=== PATIENT | male | born 1950 | race Caucasian/White ===

== ENCOUNTER → 2016-10-23 | Outpatient (CLI) | payer MEDICARE, BC ==
[~2016-10-23] MED LIST: AMIODARONE HCL100 MG PO; COLACE100 MG PO; K-TAB ER20 MEQ PO; LIPITOR40 MG PO; MAG-OX-400(241400 MG PO; NORCO 5-325 MG1 TAB PO; PRINIVIL (ZESTR20 MG PO; PROTONIX40 MG PO; SODIUM BICARBO650 MG PO; TOPROL XL200 MG PO; TOPROL XL25 MG PO; XARELTO15 MG PO
== END | disposition disaster alternative care site (69) ==
LOC: LGSMG 11:30
PROVIDERS: Physician Assistant Medical
DX: Z00.00 Encounter for general adult medical examination without abnormal findings (principal); Z01.818 Encounter for other preprocedural examination

== ENCOUNTER 2016-10-29 13:40 | Inpatient (IN) | payer MEDICARE, BC ==
[~2016-10-29] VITALS: Ht 179.1 cm; Wt 79.0 kg
--- NOTE | ~2016-10-29 | CON ---
PATIENT'S NAME: MARGUERITE YEPEZ [facility] AGE: 66 Y [address] ROOM: [address] [address] LOCATION: [facility] ADMIT DATE: 10/30/2016 Consultation DISCHARGE DATE: FAMILY PHYSICIAN: Luis Carlos Shipley MD ATTENDING PHYSICIAN: MAR BOLIVAR DATE OF CONSULTATION: 11/12/2016 REFERRING PHYSICIAN: Zheng Meneses MD TIME: 1:05 p.m. REASON FOR CONSULT: Need for anticoagulation post stroke. HISTORY OF PRESENT ILLNESS: Marguerite was admitted on 10/30/2016 for robotic-assisted laparoscopic prostatocystectomy with pelvic lymph node dissection and creation of an ileal conduit for invasive cancer. The hospitalists were consulted on 10/31/2016 for some irregular heart rate and the patient was found to be in atrial fibrillation, so Cardiology was consulted. Metoprolol was initiated and his rates have been under good control. He was started on heparin subcutaneous 5000 units b.i.d. on 11/01/2016. On 11/06/2016, the patient underwent a septic workup for shaking and chills. It was thought, he may have a hospital- acquired pneumonia. He was started on vancomycin and sepsis orders were initiated. On 11/10/2016, he complained of left lower extremity pain and venous Doppler revealed occlusive acute DVT. He was started on the heparin drip and the subcutaneous heparin was discontinued. Factor 5 Leiden, prothrombin mutation, and lupus anticoagulant labs were ordered. Neurology is being consulted to evaluate the appropriateness of anticoagulation due to a stroke in 2012. 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 He felt his legs giving out under him. He was brought to the emergency room and was noted to be in a rapid atrial fibrillation. After that, during that hospital stay, he was found to have word-finding difficulties, so a CT and MRI were done. The CT did show acute ischemia involving the superior left kristal-cerebellum and the superior cerebellar arterial distribution. Of note, there was a small remote lacune involving the left basal ganglia. The stroke was thought to be from atrial fibrillation, so an MRA was also completed. The impression was attenuated left superior cerebellar artery along its proximal and mid portions with non visualization of the vessel distally. It was thought to recommence slow flow versus occlusion. The patient's stroke symptoms were word finding and he required no rehabilitation post discharge. REVIEW OF SYSTEMS: PATIENT'S NAME: MARGUERITE YEPEZ [facility] AGE: 66 Y [address] ROOM: [address] [address] LOCATION: [facility] [place] ADMIT DATE: 10/30/2016 Consultation DISCHARGE DATE: FAMILY PHYSICIAN: Luis Carlos Shipley MD ATTENDING PHYSICIAN: MAR BOLIVAR A 10-point review of systems was completed and was negative today. The patient denies any pain. Denies any word finding issues, headache, difficulty with vision, and denies any focal weakness to any of his extremities. MEDICATIONS: His medications are on the chart and were reviewed by me. Of note, the patient is on heparin drip. SOCIAL HISTORY: The patient lives in [place]. He is a former smoker. He does not drink alcohol. PAST MEDICAL HISTORY: Includes. 1. Paroxysmal atrial fibrillation. 2. Ischemic stroke in 2012. 3. Hypertension. 4. Obstructive sleep apnea. 5. Obesity. 6. Hyperlipidemia. 7. History of tobaccoism. 8. Hematuria history. 9. The muscle invasive urothelial carcinoma. PAST SURGICAL HISTORY: 1. Ileal conduit surgery of this admission. 2. A right inguinal hernia repair. 3. Tonsillectomy. 4. Cystoscopy. FAMILY HISTORY: His father did have polio. His mother was healthy with no health issues. PHYSICAL EXAMINATION: VITAL SIGNS: Temperature is 97.6, pulse is 72, and irregular, respirations 16, and blood pressure 123/62. GENERAL: The patient is sitting in his bed with the head of bed up. He is alert and oriented x4. He is in no acute distress. HEENT: Normocephalic and atraumatic. His pupils are equal, round, and reactive to light. Extraocular muscles are intact. NECK: Supple with no nuchal rigidity. No carotid bruits are auscultated. HEART: Reveals an irregular rhythm. LUNGS: Clear to auscultation bilaterally. NEUROLOGIC: Alert and oriented x4. Conversive and follows commands. Cranial nerves 2 through 12 are intact. NIH Stroke Scale reveals a score of zero. I PATIENT'S NAME: MARGUERITE YEPEZ [facility] AGE: 66 Y [address] ROOM: [id number] [place], [place] [address] LOCATION: [facility] [place] ADMIT DATE: 10/30/2016 Consultation DISCHARGE DATE: FAMILY PHYSICIAN: Luis Carlos Shipley MD ATTENDING PHYSICIAN: MAR BOLIVAR did not assess the patient's gait. DIAGNOSTICS: The patient did have a CT scan done on the [address] shows the chronic left superior cerebellar infarct. It shows mild atrophy. There is no hemorrhage, mass, or mass effect, hydrocephalus or evidence of acute infarct. ASSESSMENT AND PLAN: This is a 66-year-old male with atrial fibrillation that probably caused the stroke in 2012 and now has returned status post surgery. 1. History of ischemic infarct. The patient is on heparin drip and also a statin medication. At the time of the stroke, it was not appropriate to utilize anticoagulation due to the possibility of hemorrhagic conversion. However, the stroke happened in 2012 and the patient should be safe for anticoagulant treatment in light of his atrial fibrillation and now the new onset of the left DVT. 2. Deep vein thrombosis. The patient is on the heparin drip. 3. Atrial fibrillation, rate is controlled. Patient has a history of paroxysmal atrial fibrillation and could have very likely caused a stroke in 2012. 4. Dyslipidemia, continue statin. 5. Hypertension, it is being managed by Cardiology. We would like to thank you for the opportunity to take care in this patient's care. PRASHANT VASQUEZ APRN FOR PATSY BURRIS MD PP/modl /[id number] d: 11/12/16 2109 t: 11/29/16 1412, CONSULTATION REPORT
--- NOTE | ~2016-10-29 | DS ---
PATIENT'S NAME: MARGUERITE YEPEZ [facility] AGE: 66 Y [address] ROOM: [address] [address] LOCATION: [facility] ADMIT DATE: 10/30/2016 Discharge Summary DISCHARGE DATE: 11/24/2016 FAMILY PHYSICIAN: Luis Carlos Shilpey MD ATTENDING PHYSICIAN: Shobha Hernandez PRIMARY DIAGNOSES: 1. Bladder cancer, status post robotic cystoprostatectomy with ileal conduit. 2. Paroxysmal atrial fibrillation. 3. Severe sepsis with septic shock, unidentified organism. 4. Acute thyroiditis, suspected amiodarone toxicity versus euthyroid sick syndrome. 5. Coagulopathy, iatrogenic. 6. Moderate protein-calorie malnutrition. 7. Deep venous thrombosis of left lower extremity. 8. History of cerebrovascular accident with hemorrhagic conversion and minimal residual effect. 9. Essential hypertension. OPERATIONS AND PROCEDURES: 1. Robotic-assisted laparoscopic radical cystoprostatectomy with lymph node dissection, umbilical hernia repair, and creation of an ileal conduit was performed on 10/30/[address] Franco. 2. Nuclear stress test was performed on 11/05/[address] Edwards. 3[address] scan of the brain was performed on 11/11/2016, negative for any acute intracranial abnormality. An old left cerebellar infarct was noted. 4. Nuclear thyroid scan was performed on 11/15/2016, with thyroid uptake of less than 1% (skewed by the presence of amiodarone). HISTORY OF PRESENTING ILLNESS/REASON FOR ADMISSION: Please refer to the original H and P dictated on 10/30/2016. HOSPITAL COURSE: The patient was admitted to the hospital as noted above with a presumptive diagnosis of bladder cancer. He was actually admitted by the Urology Service, and underwent urologic surgery as outlined above. Postoperatively, he had problems with paroxysmal atrial fibrillation, and was seen and evaluated by the Hospitalist team and in conjunction with Cardiology. His clinical condition seemed to stabilize, and he received some restorative cares on the Medical Surgical Unit. Eventually, he developed timmy hypotension. He was felt to have severe sepsis with septic shock and was transferred for aggressive supportive cares. Cultures remained negative. He was treated with broad-spectrum antibiotic PATIENT'S NAME: MARGUERITE YEPEZ [facility] AGE: 66 Y [address] ROOM: [address] [address] LOCATION: [facility] ADMIT DATE: 10/30/2016 Discharge Summary DISCHARGE DATE: 11/24/2016 FAMILY PHYSICIAN: Luis Carlos Shipley MD ATTENDING PHYSICIAN: Shobha Hernandez therapy including Zosyn, linezolid, and levofloxacin. He also received some fluconazole. Blood pressures improved with supportive cares. His renal function gradually improved with a creatinine of 1.9 at the point of admission to 1.2 by 11/12/2016. He was placed on some oral bicarbonate therapy. Because of persistent problems with paroxysmal atrial fibrillation and poor rate control, Cardiology was consulted. A routine thyroid testing revealed the presence of hyperthyroidism. He was felt to have profound thyroiditis initially, this was suspected to be secondary to amiodarone toxicity. The amiodarone was discontinued, and he was placed on beta-lexie therapy. He was otherwise asymptomatic from the thyroiditis. Dr. Cardenas, housekeeping room attendant at [facility] was consulted by telephone. He felt that differential diagnostic possibilities were primarily euthyroid sick syndrome, underlying thyroiditis, or amiodarone toxicity. He recommended no specific treatment including steroids or anti-thyroid treatment unless the patient became more symptomatic. He suggested that the levels would eventually normalize, and that he would likely need thyroid replacement therapy, but that thyroid study should be repeated on a weekly basis. He did request thyroid- stimulating immunoglobulin and reverse T3, but those studies were still pending at the time of discharge. He suggested clinical followup only. After some discussion with Neurology regarding anticoagulation therapy, it was felt that the patient would require anticoagulation. He was also discovered to have left lower extremity DVT. He did receive Coumadin, but after only a single dose he became profoundly hypoprothrombinemic. His INR continued to rise even after discontinuation of the Coumadin. Although there was some suspicion for an underlying coagulopathy, his hematologic studies were unyielding. He did have an abnormal lupus anticoagulant study, but it was recommended to repeat this in several weeks. Contributing factors included amiodarone treatment, moderate protein-calorie malnutrition, and thyroiditis. He received a single dose of oral vitamin K, and his hypoprothrombinemia essentially normalized. At that point, it was felt he could be safely anticoagulated with novel anticoagulant and Xarelto was chosen. He did receive some physical therapy and occupational therapy for strength and rehabilitation. His clinical condition gradually improved, and by the end of the day on 10/24/2016, it was felt he would be stable enough for discharge to home on an adjusted medication regimen and plans for close clinical followup with his primary care provider, Dr. Shipley, as well as outpatient followup with Urology, Dr. Franco. DISCHARGE INSTRUCTIONS: PATIENT'S NAME: MARGUERITE YEPEZ [facility] AGE: 66 Y [address] ROOM: [address] [address] [facility] ADMIT DATE: 10/30/2016 Discharge Summary DISCHARGE DATE: 11/24/2016 FAMILY PHYSICIAN: Luis Carlos Shipley MD ATTENDING PHYSICIAN: Shobha Hernandez DIET: Regular as tolerated. ACTIVITY: As tolerated. MEDICATIONS: 1. Colace 100 mg p.o. b.i.d. 2. Mag oxide 400 mg p.o. b.i.d. 3. Protonix 40 mg p.o. daily. 4. Potassium 20 mEq p.o. daily. 5. Sodium bicarb 650 mg p.o. t.i.d. 6. Metoprolol succinate 200 mg p.o. daily. 7. Xarelto 15 mg p.o. daily. 8. Atorvastatin 40 mg p.o. daily. FOLLOWUP: He will follow up with Dr. Shipley in three to five days in the Clinic. Follow up with Dr. Franco in one to two weeks. CONDITION ON DISCHARGE: Fair. Total time spent on discharge process was 60 minutes. MD SHAINA PIZANO/phill /[id number] d: 11/25/166 t: 11/25/16 1612, DISCHARGE SUMMARY
--- NOTE | ~2016-10-29 | CON ---
PATIENT'S NAME: MARGUERITE CHAPARRO [facility] AGE: 66 Y [address] ROOM: [address] [place], [place] [address] LOCATION: [facility] ADMIT DATE: 10/30/2016 Consultation DISCHARGE DATE: 11/24/2016 FAMILY PHYSICIAN: Luis Carlos Shipley MD ATTENDING PHYSICIAN: RUBEN CHAUDHRY REFERRING PHYSICIAN: Zheng Meneses MD Consult to Dr. Panda. REASON FOR CONSULTATION: Marguerite Chaparro is a 66-year-old man who has received a supratherapeutic dose of warfarin. HISTORY OF PRESENT ILLNESS: The history of present illness is from Mr. Chaparro who is a good historian; from review of his [facility] record; and review of his current and old [facility] chart. Mr. Chaparro is currently on his 22 postoperative day. On 10/30/2016, he underwent a robotic-assisted laparoscopic radical cystoprostatectomy, robotic-assisted laparoscopic extended bilateral pelvic lymph node dissection, creation of ileoconduit urinary diversion with bilateral ureteral reimplant and umbilical hernia repair for a stage IIIA, high-grade, urothelial carcinoma of the bladder involving the right bladder neck and posterior dome of the bladder. Preoperatively, prior to the neoadjuvant chemotherapy, lamina propria invasion only was documented in the right bladder neck. Postoperatively, the pathologist observed the presence of a large bladder lesion with focal superficial involvement of the detrusor muscle that was high- grade papillary urothelial carcinoma. There was a smaller bladder lesion showing invasive high-grade papillary urothelial carcinoma with invasion into the submucosa and no involvement of the detrusor muscle. The proximal prostatic urethra showed urothelial carcinoma in situ, but the distal prostatic urethra was negative for malignancy. The distal ureters and pelvic lymph nodes excised revealed no evidence of urothelial carcinoma. On the first postoperative day, atrial fibrillation developed. Metoprolol was initiated for rate control. Subcutaneous heparin was administered for DVT prophylaxis. On the 11th postoperative day, the patient developed left lower extremity pain and an occlusive deep venous thrombosis was noted in his left leg. The patient was placed on heparin anticoagulation. Factor V Leiden, prothrombin mutation, and lupus anticoagulant assays were ordered (the patient has no personal or family history of deep venous thrombosis). The patient received therapeutic heparin anticoagulation; and on the 15th postoperative day, the patient was placed on warfarin, which he received for 4 days. Upon admission to the hospital on the preoperative workup the INR was 1 and on the 7th postoperative day the INR was 1.1. After the patient received 4 days of PATIENT'S NAME: MARGUERITE CHAPARRO [facility] AGE: 66 Y [address] ROOM: [place] [address] LOCATION: [facility] ADMIT DATE: 10/30/2016 Consultation DISCHARGE DATE: 11/24/2016 FAMILY PHYSICIAN: Luis Carlos Shipley MD ATTENDING PHYSICIAN: RUBEN CHAUDHRY warfarin, the INR was 6.82, and it has not corrected as of the 24th postoperative day. It has steadily risen to 8.45. The patient was on amiodarone in this hospitalization from the first postoperative day to the 17th postoperative day and amiodarone was stopped on the same day warfarin was discontinued. He was on amiodarone at home as well. On 10/31/2016, the TSH was less than 0.005 uIU/L. On 11/16/2016, the free T4 was 3.7. A nuclear medicine 24-hour thyroid uptake and thyroid scan revealed less than 1% iodine uptake. The patient has no history of hypothyroidism or hyperthyroidism in the past. The patient is seen in consultation. ACTIVE MEDICAL PROBLEMS. CHRONIC AND DIAGNOSED: 1. Paroxysmal atrial fibrillation 1st noted in 2012. The patient's rhythm converted with medical treatment. He has been on amiodarone. 2. Essential arterial hypertension noted in 2012, this has not been labile, but may have been associated with a lacunar infarct. 3. Obstructive sleep apnea. The patient does not adhere to the prescribed CPAP regimen because the machinery is too expensive for his taste. 4. Hyperlipidemia noted in 2012. 5. Tobacco use. The patient abstained from tobacco in 1999, but smoked 2 pack per day for 30 years of [employer]. 6. Overweight: the patient's BMI was 27.7 kg/m2 on 10/30/2016. 7. Horseshoe right kidney. 8. Allergic rhinitis in the spring and not requiring any treatment. 9. Moderate mitral regurgitation, mild LVH. 10. Chronic kidney disease, stage IIIB, possibly due to cisplatin. The patient's EGFR was 60 mL/m prior to initiation of neoadjuvant cisplatin, but was only 33 mL/m when admitted to the hospital. 11. Atherosclerotic cerebrovascular disease leading to a left-sided lacunar infarct in the left basal ganglia in 2012. 12. Protein-calorie malnutrition. The patient lost 30 pounds with neoadjuvant therapy and his prealbumin is 9 mg/dL. 13. Decreased auditory acuity. ACUTE MEDICAL ILLNESSES (RESOLVED), PAST SURGERIES, INJURIES: 1. Bladder cancer. On 04/10/2016, the patient underwent a cystoscopy with transurethral resection of bladder tumor because of gross hematuria. This revealed a high-grade papillary carcinoma on the posterior dome of the bladder and the right bladder neck with lamina propria invasion. The patient received 4 cycles of neoadjuvant cisplatin and gemcitabine from 05/01 through 07/03/2016. This was complicated by renal insufficiency. Following completion of the neoadjuvant therapy, his GFR had fallen from 60 to 43 and the patient lost 30 pounds. 2. Right inguinal herniorrhaphy. 3. Tonsillectomy. PATIENT'S NAME: MARGUERITE CHAPARRO [facility] AGE: 66 Y [address] ROOM: [address] [address] LOCATION: [facility] ADMIT DATE: 10/30/2016 Consultation DISCHARGE DATE: 11/24/2016 FAMILY PHYSICIAN: Luis Carlos Shipley MD ATTENDING PHYSICIAN: RUBEN CHAUDHRY MEDICATIONS UPON ADMISSION: 1. Amiodarone 100 mg p.o. daily. 2. Atorvastatin 40 mg p.o. q.24 h. 3. Lisinopril 20 mg p.o. q.24 h. 4. Metoprolol succinate 25 mg tabs noon daily. ADVERSE REACTIONS TO MEDICATIONS, TRANSFUSIONS, ALLERGIES: 1. The patient denies any allergies. 2. The patient denies any transfusions. TOBACCO: Two-pack per day of Old [employer] cigarettes for 30 years, abstained since 1999. ALCOHOL: Twelve beers a week for many years. The patient denies any medical complications or social complications with this. CAFFEINE: 3-4 cups per day. IMMUNIZATIONS: Positive flu. Negative Pneumovax. Negative tetanus. Negative varicella zoster virus. FAMILY HISTORY: Paternal grandfather had an ND. The patient has no prior history of DVT and has no family history. SOCIAL HISTORY: The patient was born and raised at [facility]. 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 He was , but 25 years ago. He is an only child and indeed his father of polio when the patient was 6 months old. He has no children and is not a zoroastrian goer. REVIEW OF SYMPTOMS: Prior to admission, the patient lived [place]. He worked for the [employer] 25-30 hours a week. He had no exercise program, but no practical limits. Despite his 30 pounds weight loss, he was still working throughout his neoadjuvant chemotherapy. The patient's speech became somewhat garbled while he was hospitalized and there was some concern this patient might have sustained another cerebrovascular accident. There was no evidence of a new stroke over and above the chronic left superior cerebellar infarct from 2012 when the patient first developed paroxysmal atrial fibrillation. PATIENT'S NAME: MARGUERITE CHAPARRO [facility] AGE: 66 Y [address] ROOM: [place] [address] LOCATION: [facility] ADMIT DATE: 10/30/2016 Consultation DISCHARGE DATE: 11/24/2016 FAMILY PHYSICIAN: Luis Carlos Shipley MD ATTENDING PHYSICIAN: RUBEN CHAUDHRY PHYSICAL EXAMINATION: VITAL SIGNS: Pulse 52 and regular, blood pressure 135/65, respiratory rate 16, temperature 99 degrees, height upon admission 70.5 inches, weight upon admission 82.3 kg (181 pounds), and BMI 27.7 kg/m2. GENERAL: Well-developed, overweight, 66-year-old, male, in no acute distress. HEENT: There is a lentigo on the right lateral forehead. LYMPH NODES: None palpable. NECK: Without JVD or carotid bruits. SKIN: Nevi. CHEST: Clear. CV: Regular rate and rhythm. No murmurs, bruits, or adventitious sounds. ABDOMEN: Ileoconduit bag in the right lower quadrant. Healed vertical abdominal scar just to the left of midline from the midepigastrium to the suprapubic area. GENITAL AND RECTAL: Leong catheter in place. EXTREMITIES: Without peripheral edema. Pulses 2+ throughout. Sensation grossly intact. IMPRESSION: 1. Iatric increase in the international normalized ratio due to a supratherapeutic dose of warfarin, not complicated by bleeding. 2. The patient was predisposed to this complication by several important factors. He has protein-calorie malnutrition and lost 30 pounds with his chemotherapy and never regained this weight. His albumin was 2.2 g/dL, he was 2 g/dL at the time of this consult, and the prealbumin is 9 mg/dL. In addition, amiodarone can potentiate warfarin effect. The patient's type 2 amiodarone induced hyperthyroidism significantly potentiated the warfarin effect as well. RECOMMEND DIAGNOSTIC: 1. No further testing other than prudent monitoring of the hemoglobin and INR. 2. The patient should maintain a very low amiodarone diet. 3. It would be reasonable to let the INR drift down unless it rises above 9 or there are bleeding complications. 4. If there are bleeding complications oral or parenteral vitamin K and/or fresh frozen plasma and/or 4 factor prothrombin concentrate could be employed. PATIENT EDUCATION: Discussed the mechanism of his coagulopathy and reassured him it was not due to any serious underlying disease. This is an iatric complication and his INR will correct with time. PATIENT'S NAME: MARGUERITE CHAPARRO [facility] AGE: 66 Y [address] ROOM: [place] [address] LOCATION: [facility] ADMIT DATE: 10/30/2016 Consultation DISCHARGE DATE: 11/24/2016 FAMILY PHYSICIAN: Luis Carlos Shipley MD ATTENDING PHYSICIAN: RUBEN CHAUDHRY DIONY DERAS MD GKB/modl /[id number] CC: MD Dick Linder MD Brady J O'Hare, MD Richard A Hranac, MD Anuradha Tunuguntla, MD d: 11/24/16 0044 t: 11/26/16 1014, CONSULTATION REPORT
--- NOTE | ~2016-10-29 | ESTC ---
Cardiac Perfusion Imaging Demographics Patient Name LUCHO Dodd Gender Male Patient Number [id number] Race Visit Number [id number] Ethnicity Corporate ID Room Number G3201 Accession Number [id number] Height 70 inches Date of 1950 Weight 196 pounds A Interpreting Morris Lechuga Date of study 11/05/2016 Physician Supervising /GRAEME KHOURY Technologist Femi Sweeney Ordering Physician Grace Carlson Stress Adair Paez RVT, A agricultural research technician RDCS Stress ECG Reading Esther Chavez APRN Nurse Sherice Savage RN Physician Procedure Procedure Type: Nuclear Stress Test:Cardiolite Stress Test Procedure Start time: 11/05/2016 08:46 Risk Factors The patient risk factors include:former tobacco use, treated hypercholesterolemia, treated hypertension and (pack years: 17). Conclusions Summary Perfusion Images: The overall quality of the study is fair, due to gastrointestinal tracer uptake. Left ventricular cavity is noted to be normal on the stress and rest studies. There is no evidence of abnormal lung activity. The right ventricle is not visualized and cannot be assessed. Stress SPECT images demonstrate mild decrease uptake in the area involving the distal anterior wall and moderate decrease in uptake in the inferior wall. These perfusion defects appear worse on rest images suggesting artifacts. Gated SPECT imaging reveals normal myocardial thickening and wall motion. The left ventricular ejection fraction was calculated to be 53%. Impression ECG portion of stress test is clinically negative for ischemia by diagnostic criteria. Stress SPECT images demonstrate mild decrease uptake in the area involving the distal anterior wall and moderate decrease in uptake in the inferior wall. These perfusion defects appear worse on rest images and wall motion is preserved suggesting that these perfusion defects are likely due to artifacts. Gated SPECT imaging reveals normal myocardial thickening and wall motion. The left ventricular ejection fraction was calculated to be 53%. Stress Protocols Resting ECG Afib with occasional PVC's Pre-stress physical exam: Patient assessed by Linda GUEVARA prior to testing. Predicted HR: 154 bpm HR response: Appropriate BP response: Appropriate Reason for termination:Infusion complete ECG Findings No ECG changes suggestive of ischemia. Arrhythmias No worsening rhythm abnormality. Did continue to have occasional PVC's Symptoms Shortness of breath. Complications Procedure complication: None. Stress Interpretation Appropriate hemodynamic response to Lexiscan. No significant ST-T wave changes with Lexiscan. ECG portion is negative for ischemia by diagnostic criteria. Will correlate with nuclear images. Imaging Results Summed scores - Summed stress score: 4 - Summed rest score: 3 - Summed difference score: 1 Stress ejection Ejection fraction:53 % EDV :119 ml ESV :56 ml Stroke volume :63 ml LV mass :151 gr Imaging Protocols Rest Stress Isotope:Tc99m Sestamibi IV Isotope: Tc99m Sestamibi IV Isotope dose:13.1 mCi Isotope dose:41.4 mCi Date:11/05/2016 07:25 Date:11/05/2016 09:16 Technique: SPECT Technique: Gated Supine SPECT Supine Scan Time:45-60 minutes post Scan Time:45-60 minutes post injection injection Procedure Medications - Regadenoson (Lexiscan) 0.4 mg IV over 10-15 sec. I.V. 0.4 mg. Medical History Admission Data Admission date: 10/30/2016 Admission Time: 05:21 Hospital Status: Inpatient. Signatures dtt: PASQUALE VEGA dtd: 11/05/16 0846 Physician Self Edit
--- NOTE | ~2016-10-29 | ECHO ---
Transthoracic Echocardiography Report (TTE) Demographics Patient Name MARGUERITE YEPEZ Date of Study 11/04/2016 Patient Number [id number] Visit Number [id number] Date of 1950 Room Number G3201 Gender Male Number Age 66 year(s) Referring Grace Carlson Space Systems Operations Craftsman Radha Benedict [facility], Physician Catia SOUTH RVT Marge Louis Physician Interpreting [employer]anguages [employer] Literature Instructor Physician Robyn Bardales MD Supervising [facility]ing [facility] MD/MLP Physician Robyn Bardales MD Nurse Stress Group Fitness Assistant Department Head Conclusions Summary Technically difficult exam. The estimated left ventricular ejection fraction is 35-40%. Mild concentric left ventricular hypertrophy. The left atrium is moderately to severe dilated by LA volume index measurement. The right atrium is dilated. There is moderate pulmonary hypertension. The pulmonary pressure (RVSP) is 51 mmHg. Mild-moderate tricuspid regurgitation by color Doppler. Mildly dilated right ventricle. Mildly reduced right ventricular function. Procedure Type of Study TTE procedure:2D Echocardiogram. Procedure Date Date: 11/04/2016 Start: 02:05 PM Study Location: Inpatient Portable Technical Quality: Fair due to patient immobility. Indications:Ventricular tachycardia. Appropriate Use Criteria: 9 Patient Status: Routine Rhythm: Sinus tachycardia HR: 83 bpm BP: 124/59 mmHg M-Mode/2D Measurements LV Diastolic Dimension: 5.88 cm LV Systolic Dimension: 3.14 cm LV Septum Diastolic: 1.08 cm LV Septum Systolic: 4.7 cm LV PW Diastolic: 1.15 cm AO Root Dimension: 2.8 cm Cardiac Output: 5.11 l/min AV Cusp Separation: 1.6 cm RV Diastolic Dimension: 2.48 cm LA volume: 128 ml IVC Inspiration: 0.64 cm LVOT: 2.2 cm RV Base: 4.75 cm LVOT VTI: 16.2 cm RV Mid: 3.15 cm LV Stroke volume: 61.55 ml TAPSE: 2.3 cm TDI-S': 25 cm/s Doppler Measurements AV Peak Velocity: 1.35 m/s MV Peak E-Wave: 0.95 m/s AV Peak Gradient: 7.29 mmHg MV Peak A-Wave: 0.47 m/s AV Mean Gradient: 3 mmHg MV E/A Ratio: 2.01 LVOT Peak Velocity: 0.88 m/s MV P1/2t: 56 msec TR Gradient:47.61 mmHg PV Peak Velocity: 0.99 m/s Estimated RAP:3 mmHg PV Peak Gradient: 3.89 mmHg Estimated RVSP: 51 mmHg Estimated PASP: 50.61 mmHg E' Lateral Velocity: 0.17 m/s MV E/E' Ratio: 5.7 Findings Left Ventricle The estimated left ventricular ejection fraction is 35-40%. Mild concentric left ventricular hypertrophy. Septal hypokinesisDiastolic function indeterminate due to patient's arrhythmia. Right Ventricle Mildly dilated right ventricle. Mildly reduced right ventricular function. Left Atrium The left atrium is moderately to severe dilated by LA volume index measurement. Right Atrium The right atrium is dilated. Mitral Valve Mild mitral regurgitation by color Doppler. Mild mitral annular calcification. Aortic Valve The aortic valve is mildly sclerotic. Tricuspid Valve There is moderate pulmonary hypertension. The pulmonary pressure (RVSP) is 51 mmHg. Mild-moderate tricuspid regurgitation by color Doppler. Pulmonic Valve The pulmonic valve is not well visualized. Pericardial Effusion Trivial global pericardial effusion. Miscellaneous Visualized portions of the aortic root and ascending aorta appear normal in size. Pleural Effusion No evidence of pleural effusion. Contractility Score LV regional wall motion:(0-Non visualized 1-Normal 2-Hypokinesis 3-Akinesis 4-Dyskinesis 5-Aneurysm) Signature dtt: Roman Edwards dtd: 11/04/16 4353 Physician Self Edit
--- NOTE | ~2016-10-29 | CON ---
PATIENT'S NAME: [facility] AGE: 66 Y [address] ROOM: [address] [place], [place] [address] LOCATION: [facility] ADMIT DATE: 10/30/2016 Consultation DISCHARGE DATE: FAMILY PHYSICIAN: Luis Carlos Shipley MD ATTENDING PHYSICIAN: MAR FRANCO DATE OF CONSULTATION: 10/31/2016 REFERRING PHYSICIAN: Zheng Meneses MD REQUESTING PHYSICIAN: Dr. Carlos. CONSULTING PHYSICIAN: Drake Casarez MD REASON FOR CONSULT: Atrial fibrillation. HISTORY OF PRESENT ILLNESS: This is a 66-year-old male, who was admitted on 10/30/2016 before a urologic procedure for muscle invasive urothelial carcinoma, status post neoadjuvant chemotherapy. The patient underwent a creation of ileal conduit for urinary diversion with bilateral ureteroileal anastomosis in conjunction with Dr. Franco's radical cystoprostatectomy on 10/30/2016. The patient is now postop. After the procedure, the patient developed atrial fibrillation today. He has a history of paroxysmal atrial fibrillation per reviewed records. Hospitalist team was consulted for management of atrial fibrillation. At the time of my examination, the patient denies any lightheadedness. He denies any head trauma, loss of consciousness. Denies any chest pain. Denies shortness of breath. He complains of abdominal discomfort secondary to the surgery but no overt pain. Denies any diarrhea or constipation. No other complaints at this point in time. REVIEW OF SYSTEMS: A 10-point review of systems was done and was otherwise negative except as mentioned above. HOME MEDICATIONS: Per MAR. SOCIAL HISTORY: Lives in [place]. He is a former smoker per reviewed records. No significant history of alcohol is reported. PATIENT'S NAME: [facility] AGE: 66 Y [address] ROOM: [address] [address] LOCATION: [facility] [place] ADMIT DATE: 10/30/2016 Consultation DISCHARGE DATE: FAMILY PHYSICIAN: Luis Carlos Shipley MD ATTENDING PHYSICIAN: MAR FRANCO PAST MEDICAL HISTORY: Reviewed. 1. Paroxysmal atrial fibrillation. 2. Hemorrhagic stroke in 2012. 3. Hypertension. 4. Obstructive sleep apnea. 5. Obesity. 6. Hyperlipidemia. 7. Former smoker. 8. History of hematuria. 9. Muscle-invasive urothelial carcinoma. PAST SURGICAL HISTORY: 1. Status post ileal conduit surgery during this admission. 2. Right inguinal hernia repair. 3. Tonsillectomy. 4. Cystoscopy. FAMILY HISTORY: Father with polio. Mother was healthy and had no problems. PHYSICAL EXAMINATION: VITAL SIGNS: Temperature 97.6, pulse 68 and irregular, respirations 14, blood pressure 158/69, saturation 98% on 1 L nasal cannula oxygen. GENERAL: The patient is alert and oriented x3, follows all commands, moves all extremities, in no acute distress. HEENT: Head: Normocephalic, atraumatic. Pupils are equal, round, and reactive to light. Extraocular muscles are intact. Oropharynx moist. NECK: Supple. No nuchal rigidity. HEART: Irregular rhythm. LUNGS: Clear to auscultation bilaterally. Diminished bilateral bases. No wheezes or crackles. ABDOMEN: Soft, nontender, nondistended. Recent ileal conduit. EXTREMITIES: No clubbing, cyanosis, or edema. VASCULAR: Pulses 2+ distally bilaterally. NEUROLOGIC: The patient is alert and oriented x3. Follows all commands. Moves all extremities. No focal neurologic deficits. Cranial nerves 2 through 12 grossly intact. DIAGNOSTIC STUDIES: CPK 60, troponin I less than 0.04. A CBC drawn this morning showed white count of 14.1, hemoglobin 10.3, hematocrit 31.4, platelets 186. BMP this a.m. showed sodium 144, potassium 5.0, chloride 113, bicarb 22, BUN 41, creatinine 1.9, glucose 148, calcium 7.9, magnesium 2.0, GFR 36. PTT 25 on 10/29/2016. TSH was less than 0.005. PATIENT'S NAME: MARGUERITE YEPEZ [facility] AGE: 66 Y [address] ROOM: [address] [address] LOCATION: [facility] [place] ADMIT DATE: 10/30/2016 Consultation DISCHARGE DATE: FAMILY PHYSICIAN: Luis Carlos Shipley MD ATTENDING PHYSICIAN: MAR FRANCO Chest x-ray was done and showed no acute cardiopulmonary abnormality. EKG showed atrial fibrillation with a rate of 99 beats per minute and no acute ST changes. ASSESSMENT AND PLAN: A 66-year-old male with atrial fibrillation status post surgery. 1. History of bladder cancer, status post ileal conduit. Further plan and recommendations per Urology. Pain is currently well controlled. 2. History of umbilical hernia. Plan per General Surgery. 3. Atrial fibrillation. Rate is currently well controlled. The patient has a history of paroxysmal atrial fibrillation in the past. He is not on any long-term anticoagulation. We will place him on telemetry. Repeat labs in a.m. The patient is currently on amiodarone and metoprolol. Increase metoprolol, home medication dose. Monitor closely. 4. Dyslipidemia. Continue statin. 5. Hypertension. Continue Lipitor. 6. Acute kidney injury versus chronic kidney disease stage 3. Monitor creatinine level now. 7. Deep vein thrombosis prophylaxis. Per primary team. DRAKE CASAREZ MD MT/phill /[id number] d: 11/01/16 0434 t: 11/06/16 1014, CONSULTATION REPORT
--- NOTE | ~2016-10-29 | OR ---
PATIENT'S NAME: MARGUERITE YEPEZ [facility] AGE: 66 Y [address] ROOM: [address] [address] LOCATION: [facility] [place] ADMIT DATE: 10/30/2016 OR/Procedure Report DISCHARGE DATE: FAMILY PHYSICIAN: Luis Carlos Shipley MD ATTENDING PHYSICIAN: MAR FRANCO SURGEON: Mar Franco MD [employer] BI DEVELOPER: Rakesh Crane MD DATE OF PROCEDURE: 10/30/2016 PREOPERATIVE DIAGNOSIS: Muscle invasive urothelial carcinoma of the bladder. POSTOPERATIVE DIAGNOSES: 1. Muscle invasive urothelial carcinoma of the bladder. 2. Umbilical hernia. OPERATIONS/PROCEDURES PERFORMED: 1. Robotic-assisted laparoscopic radical cystoprostatectomy. 2. Robotic-assisted laparoscopic extended bilateral pelvic lymph node dissection. 3. Umbilical hernia repair. 4. Creation of ileal conduit urinary diversion with bilateral ureteral reimplant by Dr. Crane. ANESTHESIA: General endotracheal anesthesia. INDICATIONS FOR PROCEDURE: The patient is a pleasant, 66-year-old male who was diagnosed with muscle invasive urothelial carcinoma. The patient recently completed neoadjuvant chemotherapy. The patient was explained the risks, benefits, indications, and alternatives to the above procedure, wished to proceed, and consented freely. DESCRIPTION OF OPERATION: The patient was brought back to the operating room where he was placed on the OR table in the supine position. A surgical time- out was called where patient identification, surgical site, and procedure were then verified. We also did verify that the patient received an IV antibiotic within an hour of beginning the procedure. The patient then underwent successful administration of general endotracheal anesthesia. The patient was then moved and placed in a low lithotomy position. He was then prepped and draped in the usual sterile fashion using Hibiclens prep for the genital area and then chlorhexidine prep for his abdomen. The patient was then placed in steep Trendelenburg. A Leong catheter was placed per urethra. We began by making a supraumbilical incision. The rectus fascia was grasped and elevated, and we pierced the peritoneum with a Veress needle and insufflated to 15 mmHg. The patient was also noted to have a large umbilical hernia measuring approximately 3 cm in size. I then passed an 8 mm non-bladed trocar easily PATIENT'S NAME: MARGUERITE YEPEZ [facility] AGE: 66 Y [address] ROOM: [address] [place], [place] [address] LOCATION: [facility] ADMIT DATE: 10/30/2016 OR/Procedure Report DISCHARGE DATE: FAMILY PHYSICIAN: Luis Carlos Shipley MD ATTENDING PHYSICIAN: MAR FRANCO into the peritoneum. I immediately passed the laparoscope and did not observe any injury to internal structure, so I placed additional trocars in the routine positions for the robotic cystectomy technique including an 8 mm and 12 mm trocar in the right abdomen as well as an 8 mm and 12 mm trocar in the left abdomen. The da Michael XI robot was then docked and used for the remainder of this portion of the procedure. I began by first incising the peritoneum deep in the rectovesical pouch. I immediately identified the seminal vesicles and vas deferens, and these organs were carefully dissected free. I also had swept the perirectal fat off the posterior aspect of the prostate. I then turned my attention to mobilizing the right ureter which was identified just crossing over the iliac vessels. The ureter was then freed down to the level of the bladder, Weck clips were placed, and the ureter was divided at the level of the bladder. We did send off a distal margin of the right ureter for frozen section analysis, which came back negative for malignancy. I then incised the peritoneum lateral to the medial umbilical ligaments on the right side as well as dissecting down and incising the endopelvic fascia. I then turned my attention to the right bladder vascular pedicle, and this was carefully taken down with a laparoscopic stapling device. I then continued along this dissection along the base and right lateral aspect of the prostate. This was a [id number] approach. The bladder pedicle was now completely divided on the right side. I then turned my attention to performing a right extended lymph node dissection with the borders laterally including the genitofemoral nerve, superiorly to the branching of the common iliac vessels, then carrying it down on inferiorly to the obturator nerve, taking care to preserve the obturator nerve without any injury. The dissection was further carried out to the border of the node of [place]. Care was also taken not to injure the genitofemoral nerve or the iliac vessels. I then turned my attention to the left-hand side. The identical dissection of the bladder pedicle as well as mobilization of the prostate was taken on the left-hand side as well as identical extended lymph node dissection in the same fashion on the left. I had also divided the left ureter in the same fashion on the left side and sent off a section for frozen analysis, with left ureteral margin negative for malignancy. I then carried on by mobilizing the bladder by dividing the urachus with electrocautery. I continued on in the space of Retzius until I identified the periprostatic fat. The endopelvic fascia had already been incised at the lateral dissection. The levator musculature was then swept off the prostate from base to apex. I then proceeded to dissect down to the prostate apex. Vascular control of the dorsal venous complex was obtained using the endovascular laparoscopic stapler. After we had completely divided the dorsal venous complex, hemostasis appeared to be excellent, and I further isolated the urethra. I then placed a Hem-o-Cristian clip on the urethra after removing the Leong and then divided the urethra. I divided the urethra just distal to the Hem-o-Cristian clip, and then the remaining attachments of the apical prostate were then divided, now having the prostate and bladder completely freed up. I inspected for PATIENT'S NAME: MARGUERITE YEPEZ [facility] AGE: 66 Y [address] ROOM: [place] [address] LOCATION: [facility] ADMIT DATE: 10/30/2016 OR/Procedure Report DISCHARGE DATE: FAMILY PHYSICIAN: Luis Carlos Shipley MD ATTENDING PHYSICIAN: MAR FRANCO hemostasis, which was excellent. There did not appear to be any injury to surrounding structures, including the rectum. I then began by creating a tunnel for the left ureter along the sacral promontory underneath the colonic mesentery. I then pulled the left ureter under and through the tunnel that we had created, and we did appear to have adequate length on the left ureter after it was mobilized. I then undocked the robot and lengthened our supraumbilical incisions, carrying this incision down around the umbilicus, opened up the fascia, and removed the remaining specimen which included the bladder, prostate, and seminal vesicles. Of note, we had already sent off the lymph node packets at the time of the lymph node dissection. We then brought the ureters up through our open incision as well as brought his ileum up through the incision. Please see Dr. Crane's dictation for the creation of the ileal conduit and anastomosis of bilateral ureters to the ileal conduit as well as maturing of the stoma. Of note, we then turned our attention to the umbilical hernia which was completely excised, and I then closed the fascia with a #1 looped PDS suture. I had already placed a SONDRA drain in his left lower quadrant port site, and the drain was placed in his mid abdomen and pelvis. Local anesthetic was applied to his incision sites, and his incision sites were copiously irrigated. His skin was then closed with a running 4-0 Monocryl suture and then covered with Dermabond. The drain was secured with a silk stitch. The patient was then awoken from general anesthesia where he was then extubated, transferred to the recovery bed, and transported to the recovery room in good condition. COMPLICATIONS: None. ESTIMATED BLOOD LOSS: 100 mL. DRAINS: Indwelling SONDRA drain to bulb suction. FOLLOWUP PLAN: We will plan to admit the patient for close observation in the hospital awaiting bowel function. MAR FRANCO MD GP/modl /[id number] CC: Kat Lagos MD d: 10/30/16 1814 t: 11/01/16 1113, OPERATIVE SUMMARY
--- NOTE | ~2016-10-29 | ECHO ---
Transthoracic Echocardiography Report (TTE) Demographics Patient Name MARGUERITE YEPEZ Date of Study 11/05/2016 Patient Number [id number] Visit Number [id number] Date of 1950 Room Number G3201 Accession Number [id number] Gender Male Age 66 year(s) Referring [facility] Luis Carlos Bardales Manager Provider Relations Betsy Navarrete Physician [facility] Esther Horowitz Physician Interpreting Morris Sourcing Coordinator Physician Alexandrea Supervising Ordering Physician Esther Dodd MD/GRAEME ROSASN Nurse Stress Manager Metal Conclusions Summary Definity contrast was administered to better delineate endocardial borders. The estimated left ventricular ejection fraction is 55-60%. Mild basal inferoseptal wall hypokinesis Procedure Type of Study TTE procedure:Echo Limited w/ Contrast, Echo with Contrast. Procedure Date Date: 11/05/2016 Start: 04:01 PM Study Location: Inpatient Portable Technical Quality: Adequate visualization Indications:Re-evaluate LV systolic function and Atrial fibrillation. Appropriate Use Criteria: 9 Patient Status: Routine Contrast Medium: Definity. Amount - 2 ml HR: 94 bpm Contractility Score LV regional wall motion:(0-Non visualized 1-Normal 2-Hypokinesis 3-Akinesis 4-Dyskinesis 5-Aneurysm) Signature dtt: ALEXANDREA VEGA dtd: 11/05/16 8491 Physician Self Edit
--- NOTE | ~2016-10-29 | ENPV ---
Vascular Lower Extremities DVT Study Procedure Demographics Patient Name MARGUERITE YEPEZ Date of Study 11/10/2016 Patient Number [id number] Gender Male Date of 1950 Age 66 Visit Number [id number] Height 70 Accession Number [id number] Weight 196 Referring Interpreting [facility] Physician Physician Robyn Bardales MD Physician Ordering Stucco Applicator Physician Barnworker Groom Betsy Navarrete [facility] Conclusions Summary Acute Occlusive DVT in the left lower extremity including the Common Femoral Vein, Proximal, Mid and Distal Segments of the femoral vein , the popliteal and both sets of the posterior tibial and peroneal calf vessels. Study positive for DVT left lower extremity. Procedure Type of Study: Veins:Lower Extremities DVT Study, Lower Extremity Left. Appropriate Use Criteria:7 Patient Status:Routine. Study Location:Inpatient Portable. Technical Quality:Adequate visualization. - Preliminary reported to:Dr. Proctor. Risk Factors - The patient's risk factor(s) include: treated arterial hypertension. - The patient has a former tobacco history of 17 years . Velocities are measured in cm/s ; Diameters are measured in cm Right Lower Extremities DVT Study Measurements Right 2D and Doppler Measurements + + + + +------+------+ + !Location !Visualized!Compressibility!Thrombosis!Signal!Reflux!Reflux ! ! ! ! ! ! ! !(sec) ! + + + + +------+------+ + !Common !Yes !Yes !None ! ! ! ! !Femoral ! ! ! ! ! ! ! + + + + +------+------+ + Left Lower Extremities DVT Study Measurements Left 2D and Doppler Measurements + + + + +------+------+ + !Location !Visualized!Compressibility!Thrombosis!Signal!Reflux!Reflux ! ! ! ! ! ! ! !(sec) ! + + + + +------+------+ + !GSV Thigh !Yes !No !Acute ! ! ! ! + + + + +------+------+ + !Common !Yes !No !Acute ! ! ! ! !Femoral ! ! ! ! ! ! ! + + + + +------+------+ + !Prox !Yes !No !Acute ! ! ! ! !Femoral ! ! ! ! ! ! ! + + + + +------+------+ + !Mid Femoral!Yes !No !Acute ! ! ! ! + + + + +------+------+ + !Dist !Yes !No !Acute ! ! ! ! !Femoral ! ! ! ! ! ! ! + + + + +------+------+ + !Popliteal !Yes !No !Acute ! ! ! ! + + + + +------+------+ + !Gastroc !Yes !No !Acute ! ! ! ! + + + + +------+------+ + !PTV !Yes !No !Acute ! ! ! ! + + + + +------+------+ + !Peroneal !Yes !No !Acute ! ! ! ! + + + + +------+------+ + Signature dtt: Roman Edwards dtd: 11/10/16 1440 Physician Self Edit
--- NOTE | ~2016-10-29 | OR ---
PATIENT'S NAME: MARGUERITE YEPEZ [facility] AGE: 66 Y [address] ROOM: [address] [address] [place] [facility] [place]: 10[place]30/[place] OR/Procedure Report DISCHARGE DATE: FAMILY PHYSICIAN: Luis Carlos Shipley MD ATTENDING PHYSICIAN: MAR FRANCO SURGEON: Marilou Bolanos MD FLIGHT TEST DATA ACQUISITION TECHNICIAN: Mar Franco MD DATE OF PROCEDURE: 10/30/2016 PREOPERATIVE DIAGNOSIS: Muscle invasive urothelial carcinoma, status post neoadjuvant chemotherapy. POSTOPERATIVE DIAGNOSIS: Muscle invasive urothelial carcinoma, status post neoadjuvant chemotherapy, with final pathology pending. PROCEDURE PERFORMED: Creation of ileal conduit urinary diversion with bilateral ureteroileal anastomoses in conjunction with Dr. Franco's radical cystoprostatectomy. ANESTHESIA: General. INDICATION: This is a 66-year-old gentleman who had presented with gross hematuria. He was evaluated and found to have invasive carcinoma. He has undergone neoadjuvant chemotherapy. He presents at this time for planned cystectomy. Options for urinary diversion have been reviewed with the patient. He prefers to proceed with ileal conduit. DESCRIPTION OF PROCEDURE: Having obtained his informed consent, the patient was taken to the operating room. He was prepped and draped sterilely. He had undergone robotic-assisted radical cystoprostatectomy with extended bilateral pelvic lymphadenectomy per Dr. Franco. He was doing well. A midline incision was now made incorporating an umbilical hernia and his camera port site. We entered the peritoneum without incident. The bladder and prostate were removed and sent to pathology now that we had an incision. The cecum was identified. We came proximal to that approximately 10 cm. We made sure there was a vascular arcade to the terminal ileum. We then divided the mesentery using the LigaSure. We came another 12 to 15 cm proximal and divided the mesentery again, making sure that there was a vascular arcade to the isolated segment. We then used the COLT stapler and isolated our segment. We dropped that down. We then created bowel continuity in the usual [id number] fashion, firing a COLT down between our 2 limbs and a TA stapler across the top. We had a nice, palpable anastomosis. The mesenteric defect was closed with silk pop-offs. PATIENT'S NAME: MARGUERITE YEPEZ [facility] AGE: 66 Y [address] ROOM: [address] [address] [place] [facility] [place]: 10/30/2016 OR/Procedure Report DISCHARGE DATE: FAMILY PHYSICIAN: Luis Carlos Shipley MD ATTENDING PHYSICIAN: MAR FRANCO The ureters were then brought up. They were not twisted. There was no tension. Bilateral ureteroileal anastomoses were undertaken. The ureteral ends were freshened up and spatulated. We then completed the anastomosis with interrupted 4-0 Vicryl. A previously marked stoma site was then utilized. We had placed one of the robotic ports at the same site. We used that small incision and enlarged it just slightly. I then came down and did a cruciate incision through the fascia. We could get 2 fingers through easily. There was no tension. I then brought the ileal loop through that. Care was taken not to twist it. We took the top off, and we could digitalize and palpate the conduit nicely. It was patent. We then closed the abdominal incision in the usual fashion. Once I got the fascia closed, I went about maturing the stoma. I used 3-0 Vicryl and 3-0 chromic. We had a nice, patent stoma. The patient tolerated this portion of the procedure well. Blood loss was minimal. No specimens were sent. A Kwaku-Stout drain has been left, and the closure was completed. The patient was returned to the recovery area, awake and in stable condition. MARILOU BOLANOS MD [facility]/gilmal /[id number] d: 10/30/[id number] t: 10/31/16 0933, OPERATIVE SUMMARY
--- NOTE | ~2016-10-29 | ENPV ---
Vascular Upper Extremities Veins Procedure Demographics Patient Name MARGUERITE YEPEZ Date of Study 11/13/2016 Patient Number [id number] Gender Male Date of 1950 Age 66 Visit Number [id number] Height 70 Weight 196 Number [facility] Luis Carlos Jones MD Physician Physician Physician Ordering Sandra iKng Isobutylene Operator Chief Physician Section Crews Activities Clerk [facility] Conclusions Summary Normal right upper extremity venous duplex. Limited visualization of the brachial veins due to IV in the upper arm. Cephalic and basilic veins were not visualized due to IV and forearm edema. Procedure Type of Study: Veins:Upper Extremities Veins, Upper Extremity Right. Indications for Study:Unilateral edema. Appropriate Use Criteria:9 Patient Status:Routine. Study Location:Inpatient Portable. Technical Quality:Limited visualization. Risk Factors - The patient's risk factor(s) include: treated arterial hypertension. - The patient has a former tobacco history of 17 years . Velocities are measured in cm/s ; Diameters are measured in cm Right UE Vein Measurements 2D and Doppler Measurements + + + + +--------+--------+ !Location !Visualized !Compressibility !Thrombosis !Signal !Reflux ! + + + + +--------+--------+ !IJV !Yes !Yes !None !Phasic ! ! + + + + +--------+--------+ !SCV !Yes !Yes !None !Phasic ! ! + + + + +--------+--------+ !Innominate !No ! ! ! ! ! + + + + +--------+--------+ !Axillary !Yes !Yes !None !Phasic ! ! + + + + +--------+--------+ !Brachial !Yes !Yes !None !Phasic ! ! + + + + +--------+--------+ !Radial !Yes !Yes !None !Phasic ! ! + + + + +--------+--------+ !Ulnar !Yes !Yes !None !Phasic ! ! + + + + +--------+--------+ !Basilic !No ! ! ! ! ! + + + + +--------+--------+ !Cephalic !No ! ! ! ! ! + + + + +--------+--------+ Signature dtt: LONNY RUBIN dtsandra: 11/13/16 1334 Physician Self Edit
[~2016-10-29 13:40] MED LIST changes: -COLACE100 MG PO; -K-TAB ER20 MEQ PO; -MAG-OX-400(241400 MG PO; -PROTONIX40 MG PO; -SODIUM BICARBO650 MG PO; -TOPROL XL200 MG PO; -XARELTO15 MG PO
--- NOTE | 2016-10-30 15:55 | NUR ---
Significant Event: Pt to floor from PACU around 1430. NG to right nare to low intermittent suction, minimal drainage noted. Ileoconduit to right lower abd with min amt of blood in bag and matthew urine draining. MIKA to left lower abd, minimal drainage in mika but dressing site oozing, MD aware and may change and reinforce dressing as needed. Incision to lower abd approximated with skin glue. NPO, may have very few ice chips. VS stable. MS INSTRUCTIONAL SYSTEMS DESIGNER at 2mg q 10 min, pain controlled at this time. Follow up:
--- NOTE | 2016-10-31 04:01 | NUR ---
Significant Event: Pt is alert and oriented. VSS on 1L of 02. IV to the L)FA IVF running. IV to the R)FA SL. Morphine CHASER HELPER at 2mg demand with 8 minute lockout. Pt is NPO. NG to the R)nare low intermittent suction with scant amount out. illeoconduit to the R)lower abdomen draining red to now matthew urine. SONDRA drain to L)lower abdomen with 20 out this shift, dressing change multiple times due to leaking at site, called MD and was told no new orders and to keep changing site when saturated. Skin glue to midline incision. Ambulates 1-2 assist/gaitbelt/walker. Follow Up: Ambulation. SONDRA site changes.
[2016-10-31 05:13] LABS: BASOPHIL % 0.1 %; HEMATOCRIT 31.4 % (37.0-53.0); HEMOGLOBIN 10.3 g/dL (11.0-16.0); IMMATURE GRANULOCYTE # 0.1 K/uL (0.0-0.3); IMMATURE GRANULOCYTE % 0.6 %; LYMPHOCYTE # 0.9 K/uL (0.8-4.0); LYMPHOCYTE % 6.6 %; MCH 32.3 pg (27.0-34.0); MCHC 32.8 gm/dL (32.0-36.5); MCV 98.4 fl (83.0-98.0); MONOCYTE # 0.9 K/uL (0.0-1.0); MPV 9.6 fl (9.4-12.4); NEUTROPHIL # (ANC) 12.2 K/uL (1.4-9.0); NEUTROPHIL % 86.7 %; NRBC % 0 /100WBC (0-0.00); PLATELET COUNT 186 K/uL (150-450); RDW-CV 12.8 % (11.9-14.6); WBC 14.1 K/uL (4.0-11.0)
[2016-10-31 05:17] LABS: RBC 3.19 M/uL (3.50-5.50)
[2016-10-31 05:23] LABS: CALCIUM 7.9 mg/dL (8.5-10.5); CREATININE 1.9 mg/dL (0.6-1.3)
--- NOTE | 2016-10-31 16:48 | NUR ---
Significant event: Pt. is alert and oriented. VSS on RA. IV to L)FA running IVF at 120. R)FA IV is SL, flushes. Morphine REHABILITATION TECH at 2 demand/8 min lockout, 4 deliveries/4 demands. SONDRA drain to LLabdomen had 85 bloody out, abd changed, leaked around drain, DR is aware. NG to LCS with scant out. Advanced diet to ice chips. Patient compliant. Ileal conduit had 1150 out, light yellow, stoma is light brown. Gave lasix this afternoon IV x1. Midline incision closed with skin glue, open to air. Refusing to ambulate most of day, did ambulate in room with aide x1, 1PA. Hypoactive bowel sounds. Follow up: encourage ambulation.
[2016-10-31 22:47] LABS: CPK 60 IU/L (35-332)
--- NOTE | 2016-11-01 04:18 | NUR ---
Significant Event: PATIENT IS ALERT AND ORIENTED. SONDRA ESQUEDA TO L) LOWER ABDOMEN HAD 65 BLOODY FLUID OUT OUT. L NARE INTERMEDIATED SUCTION. ILEAL CONDUIT. WITH BAG DRAINNING YELLOW URINE 850 OUT. STOMA IS BLACKISH BROWN IN COLOR. MIDLINE INCISION CLOSED WITH SKIN GLUE, OPEN TO AIR. HYPOACTIVE BOWEL SOUNDS. HYPERTENSIVE 189/80 AND TACHY 106-120. PATIENT WAS PUT ON TELE THIS SHIFT FOR A-FIB AND 1ST DEGREE AV BLOCK. DR JJ NOTIFIED AND HE ASK FOR CARDIOLOGY CONSULT, DR. SHELLEY CONSULTED AND DR. CASAREZ WAS NOTIFIED OF PATIENTS CONDITION. HAD TOTAL OF 5 TE[address]IFT. [address] SHELLEY WANTS SURGEON TO BE CONSULTED REGUARDING ANTICOAGULATION THERAPY IN AM. DIET IS ICE CHIPS. IV TO L) FA RUNNING IVF AT 120, IV TO R) FA SL. MORPHINE PUMP IS AT 2MG DEMAND 8 MINUTE LOCKOUT WITH 5 DEMANDS 5 DELEVERIES THIS SHIFT. AMBULATES WITH 1-2 ASSIST GAIT BELT WALKER REFUSED TO AMBULATE. Follow up: CONTINUE MONITORING VITALS SEE EMAR FOR MEDICATION CHANGES.
[2016-11-01 05:25] LABS: BASOPHIL % 0.1 %; HEMATOCRIT 31.7 % (37.0-53.0); HEMOGLOBIN 10.1 g/dL (11.0-16.0); IMMATURE GRANULOCYTE # 0.1 K/uL (0.0-0.3); IMMATURE GRANULOCYTE % 0.5 %; LYMPHOCYTE # 1.8 K/uL (0.8-4.0); LYMPHOCYTE % 12.1 %; MCH 32.2 pg (27.0-34.0); MCHC 31.9 gm/dL (32.0-36.5); MONOCYTE # 1.1 K/uL (0.0-1.0); MONOCYTE % 7.8 %; NEUTROPHIL # (ANC) 11.6 K/uL (1.4-9.0); NEUTROPHIL % 79.5 %; NRBC % 0 /100WBC (0-0.00); PLATELET COUNT 167 K/uL (150-450); RBC 3.14 M/uL (3.50-5.50); RDW-CV 13.2 % (11.9-14.6); WBC 14.6 K/uL (4.0-11.0)
[2016-11-01 05:38] LABS: ALBUMIN 2.5 gm/dL (3.5-5.0); ANION GAP 12.4 (10.0-19.0); CREATININE 1.3 mg/dL (0.6-1.3); PHOSPHORUS 3.4 mg/dL (2.5-4.9); POTASSIUM 4.4 mMol/L (3.7-5.1)
[2016-11-01 05:47] LABS: CPK 35 IU/L (35-332)
--- NOTE | 2016-11-01 07:49 | NUR ---
2149 PATIENT B/P WAS 189/80 ADN WAS NOTED TO HAVE A IRREGULAR HB. DR. JJ WAS NOTIFIED. HE ORDERED AN EKG AND SAID TO HAVE THE HOSPIALIST DO A CONSULT. HE WANTED TO BE NOTIFIED OF SIGNIFICANT FINDS. THE EKG CAME BACK POSITIVE. I CALLED THE REPORT TO DR. JJ WHO THEN ORDERED A CARDIAC CONSULT. PATIENT WAS PUT ON TELE AND DR. SHELLEY WAS CONTACTED. THE PATIENT WAS IN A-FIB FROM 2039 TO 304 WHEN HE RETURNED TO SINUS RYTHUM. AT 324 HE LEANDRA BACK TO A-FIB WITH A 1ST DEGREE AV BLOCK. DR. SHELLEY WAS NOTIFIED AT THIS TIME SHE REQUESTED THE HOSPITALIST TO TAKE OVER DR. CASAREZ WAS NOTIFIED AND UPDATED. DR. SHELLEY WILL FOLLOW UP WITH PATIENT IN AM. SHE ALSO REQUESTED A CONSULT WITH THE SURGEON REGARDING ANTICOGAULATION THERAPY.
--- NOTE | 2016-11-01 17:16 | NUR ---
Significant Event: Patient alert and oriented and cooperative with cares. Morphine AGILE QA TESTER to demand only with a total of 4 mg infused with 3 demands and 2 deliveries. Patient c/o pain when getting out of bed and ambulating. Encouraged patient to use the AGILE QA TESTER more often and new order for Toradol 15 mg IV q 8 hrs x 3 doses. NG tube dc'd and patient is only taking in sips of water with meds and rare ice chips. SONDRA drain to L) abdomen patent with a total of 75 ml out for the shift. Ileo conduit patent with yellow urine with 650 ml out. Patient ambulated to the recliner and sat for about 1 hr. When PT came this afternoon patient sat on the edge of the bed and stood at the bedside but refused to sit in the recliner or ambulate. Dr Franco ordered patient to ambulate 5 times/day. Telemetry on with no calls received. Follow up: Ambulate this evening. Monitor pain.
--- NOTE | 2016-11-02 00:50 | NUR ---
Significant Event: PATIENT IS ALERT AND ORIENTED X 4. AMBULATES WITH ONE ASSIST GAIT BELT WALKER. REFUSED TO AMBULATE THIS SHIFT. HE DID USE THE IS X5. BLOOD PRESSURE WNL ABEBRILE, PULSE IN LOW 50,S, ON RA, ALSO ON TELE IN SINUS RHYTHM. PAIN IS WELL CONTROLLED. DRAIN IS DRAINING RED FLUID. URINE IS PALE YELLOW IN COLOR DRAINING TO AGUIAR BAG. DIET IS SIPS AND CHIPS NO COMPLAINTS OF NAUSEA. Follow up:
[2016-11-02 05:34] LABS: ANION GAP 12.2 (10.0-19.0); CREATININE 1.6 mg/dL (0.6-1.3); MAGNESIUM 1.9 mg/dL (1.3-2.6); POTASSIUM 4.2 mMol/L (3.7-5.1)
[2016-11-02 05:48] LABS: BASOPHIL % 0.2 %; EOSINOPHIL # 0.1 K/uL (0.0-0.5); EOSINOPHIL % 1.1 %; HEMATOCRIT 30.3 % (37.0-53.0); HEMOGLOBIN 9.6 g/dL (11.0-16.0); IMMATURE GRANULOCYTE # 0.1 K/uL (0.0-0.3); IMMATURE GRANULOCYTE % 0.5 %; LYMPHOCYTE # 2.3 K/uL (0.8-4.0); LYMPHOCYTE % 20.2 %; MCH 31.9 pg (27.0-34.0); MCHC 31.7 gm/dL (32.0-36.5); MCV 100.7 fl (83.0-98.0); MONOCYTE # 1.1 K/uL (0.0-1.0); MONOCYTE % 9.5 %; NEUTROPHIL # (ANC) 7.7 K/uL (1.4-9.0); NEUTROPHIL % 68.5 %; NRBC % 0 /100WBC (0-0.00); PLATELET COUNT 156 K/uL (150-450); RBC 3.01 M/uL (3.50-5.50); RDW-CV 13.2 % (11.9-14.6); WBC 11.2 K/uL (4.0-11.0)
--- NOTE | 2016-11-02 12:16 | NUR ---
I have examined the student charting and find it acceptable. Shruthi. DIGNA
[2016-11-02 12:51] LABS: ALBUMIN 2.5 gm/dL (3.5-5.0); ANION GAP 15.4 (10.0-19.0); CALCIUM 8.4 mg/dL (8.5-10.5); CREATININE 1.7 mg/dL (0.6-1.3); PHOSPHORUS 4.2 mg/dL (2.5-4.9); POTASSIUM 4.4 mMol/L (3.7-5.1)
--- NOTE | 2016-11-02 16:55 | NUR ---
Patient is alert and oriented, VSS, on room air. IV to L) forearm infusing D5 1/2NS at 120ml/hr. Midline incision is glued, ileo conduit is draining yellowish brown urine with sediment, SONDRA drain had 140 out of bloody drainage. Up to chair and ambulated in the room. Morphine CHILD CAREGIVER PRIVATE HOME demand only at 2mg with 8 minute lockout, 9 attempts with 8 deliveries. Tele with no calls but is bradycardic.
--- NOTE | 2016-11-02 17:11 | NUR ---
SPOKE TO PATIENT REGARDING CM AND OUR ROLE. PATIENT LIVES ALONE IN OWN HOME. HE IS PLANNING ON RETURNING THERE ONCE HE IS READY FOR DISCHARGE WITH HELP FROM FRIENDS. PATIENT DOES NOT ANTICPATE ANY DISCHARGE NEEDS AT THIS TIME.
--- NOTE | 2016-11-03 03:58 | NUR ---
Significant Event: Patient alert and oriented X4. Up with one person assist, walker and gait belt. Walked last night with a lot of encouragement. Supposed to walk 5 times daily. Ileoconduit to R) lower abdomen, SONDRA to L) lower abdomen, midline insicion glued. IV to L) forearm D51/2 NS at 120ml. Morhpine MARKETING RESEARCH COORDINATOR demand only. 5demands and 5 deliveries. Telemetry on, no calls. ON room air. Follow up: Monitor pain. Walk
[2016-11-03 06:07] LABS: ANION GAP 13.5 (10.0-19.0); BLOOD UREA NITROGEN 42 mg/dL (6-24); CALCIUM 8.3 mg/dL (8.5-10.5); CHLORIDE 110 mMol/L (96-110); CO2 21 mMol/L (22-32); CPK 62 IU/L (35-332); CREATININE 1.5 mg/dL (0.6-1.3); ESTIMATED GFR (MDRD EQUATION) 47; MAGNESIUM 1.7 mg/dL (1.3-2.6); POTASSIUM 4.5 mMol/L (3.7-5.1); SODIUM 140 mMol/L (135-145)
--- NOTE | 2016-11-03 10:22 | NUR ---
A - PT SCREENED D/T LOS. S/P UROTHELIAL CARCINOMA W/ ILEOCONDUIT R) LOWER ABD PLACEMENT. SONDRA L) LOWER ABD. NG TO [facility] DC'D. ABD PAIN. HT: 70" WT: 196# (10/31), 04/2016 232# - DOWN 36# (15.5%) x 7 MOS. BMI: 27.7 LABS: GLU 107, BUN/CR 42/1.5, ALB 2.5, WBC 11.2 MEDS: BOWEL, D5NS DIET: NPO x 4. SIPS/CHIPS. NEEDS: 9235-2052 KCAL (22-27 KCAL/KG), 89-107 G PRO (1-1.2) D - INADEQUATE NUTRIENT INTAKE R/T ALTERED GI FUNCTION AEB RECENT ILEOCONDUIT PLACEMENT, SONDRA PLACEMENT, NPO STATUS. I - GOAL FOR NUTRITION INITIATION W/IN 48 HRS. WILL ADD ORAL NUTRITION SUPPLEMENT WHEN DIET STARTED. IF UNABLE TO START ORAL DIET REC PPN @ 90 ML/HR W/ 500 ML 20% LIPIDS DAILY TO PROVIDE 2102 KCAL, 92 G PRO M/E - WILL MONITOR POC, DIET, GI FUNCTION F/U IN 2-4 DAYS.
--- NOTE | 2016-11-03 10:27 | NUR ---
NPO x 4 DAYS. IF UNABLE TO START ORAL DIET W/IN 48 HRS REC PPN @ 90 ML/HR W/ 500 ML 20% LIPIDS DAILY TO MEET NEEDS. WT DOWN 15.5% x 7 MONTHS.
[2016-11-03 11:56] LABS: ANION GAP 15.5 (10.0-19.0); BLOOD UREA NITROGEN 37 mg/dL (6-24); CALCIUM 8.3 mg/dL (8.5-10.5); CHLORIDE 111 mMol/L (96-110); CO2 20 mMol/L (22-32); CPK 50 IU/L (35-332); CREATININE 1.4 mg/dL (0.6-1.3); ESTIMATED GFR (MDRD EQUATION) 51; MAGNESIUM 1.9 mg/dL (1.3-2.6); POTASSIUM 4.5 mMol/L (3.7-5.1); SODIUM 142 mMol/L (135-145)
--- NOTE | 2016-11-03 12:45 | NUR ---
Attempted to see pt this morning. Pt reports he is having a lot of pain and does not feel good today. Pt reports that he is also having some heart issues and does not want to get up or do exercises until that is figured out. Will attempt to see pt tomorrow. Filomena Gardiner, PT 11/03/16
--- NOTE | 2016-11-03 15:14 | NUR ---
Pt continues on Morphine INVESTMENT STRATEGIST demand only. Alert and oriented x3. Midline incision intact with glue. SONRDA drain intact with serosanguinous fluid in bulb. Attempted to take patient for a walk and pt became faint after about 5 feet. Telemetry called and stated he had about 5 runs of Vtach. Pt reports feeling better after returned to bed. VSS. PT afebrile thus far. Had EKG this am showing Afib. Cardiac enzymes within normal limits when drawn at 1100. Pt diet advanced to clear liquids (slowly),fluid from SONDRA drain sent to lab for BUN and Cr. BUN was 42,Cr 1.4. Pt has active bowel sounds. Low tolerance for activity. Up in recliner this PM. Suppository given as ordered this am. No results yet.
--- NOTE | 2016-11-04 04:42 | NUR ---
Significant Event: Patient up to bathroom x 2 and had a small bm he reported. No calls from tele. Up in chair also throughout the night. Reporting pain of 4 and had only 5 demands on his SEASONING MIXER for a total of 10mg of morphine. Vitals stable. Adequate urine output and 85 out of SONDRA drain. Pleasant and cooperative with cares. Alert and orientated. Follow up: Continue to monitor.
--- NOTE | 2016-11-04 17:26 | NUR ---
AAOx3. Cooperative with cares. Up w/SBA and GB. Ambulated in hallway today. Up to BR, reported flatus. IVF infusing @120 w/Morphine CARDIOLOGY NURSE PRACTITIONER demand only 2mg/8min LO w/4demands 3 deliveries. SONDRA to L) side w/95mls out. Ileoconduit w/375ml output. IV had been leaking significant amounts of IVFs to floor. Emesis this afternoon w/no warning or nausea.
--- NOTE | 2016-11-05 02:02 | NUR ---
Significant Event:Patient up to bathroom x 1, no stool, passing gas. Ambulated a short distance in the room. Rating pain between 3-4, has only used to 4 demand doses for a total of 8 mg. SONDRA to left lower abdomen with 120 out. Adequate urine output. Vomited a couple of times-400ml, and states it just comes on all at once, denies really being nauseated. Still only taking in sips of fluids even though advanced to full liquids. NPO after midnight for lexiscan in am. Pleasant and cooperative with cares. Tele called once with heart rates in the uppers [address] during a vomiting episode. Follow up: No further calls. Lexiscan
--- NOTE | 2016-11-05 14:28 | NUR ---
A-NUTRITION F/U (+)BS; (+)FLATUS. HAS SEVERAL EPISODES OF VOMITING W/NO WARNING OR NAUSEA. HAS BEEN HAVING SIPS OF CLEARS. LEXISCAN TODAY. LABS: NA 142, K+ 4.5, GLU 112, BUN 37, HEALTH ANALYST 1.4 MEDS: NORCO, PROTONIX DIET RX: CLEAR LIQUIDS (ORDERED AT LUNCH TODAY) EST NUTR NEEDS: [id number] KCALS AND 89-107 GMR PROTEIN D-AT NUTRITION RISK W/INADEQUATE NUTRIENT INTAKE R/T ALTERED GI FXN AEB RECENT ILEOCONDUIT PLACEMENT, SONDRA DRAIN, RECENT NPO STATUS, WT LOSS OF 15.5% X 7 MOS. I-START ENSURE CLEAR TID W/MEALS, TO PROVIDE ADDITIONAL NUTRIENTS WHILE ON CLEAR LIQUIDS. M/E-GOAL: TOLERATE CLEAR LIQUDS WITHOUT DIFFICULTY 1)F/U DIET RX, PO INTAKE, SUPPLEMENT, GI, AND POC IN 2-4 DAYS 2)ASSIST NEEDED
--- NOTE | 2016-11-05 17:39 | NUR ---
Significant Event: Patient alert and oriented. Patient was NPO this morning for a Lexiscan. Patient denies nausea and is taking sips of clear liquids. SONDRA drain dc'd this morning by Dr Crane with 70 ml out. Dressing to the LLQ saturated with serosanganous drainage and changed x 2. Ileo conduit patent with 500 ml of dark yellow urine out for the shift. Up to the bathroom x 1 and patient states having a liquid BM. Morphine PROGRAM COORDINATOR EXECUTIVE EDUCATION dc'd this morning. [place] 1 tab given x 2 doses with the last at 1610. Chest xray and Echo with contrast done this afternoon. Patient up to the recliner this morning and ambulated in the hallway x 1 with PT this afternoon. Follow up: Ambulate this evening.
[2016-11-06 02:46] LABS: BICARBONATE 13.8 mmol/L (18.0-23.0); PCO2 25 mmHg (35-45); PO2 50 mmHg (80-90)
[2016-11-06 03:33] LABS: BASOPHIL % 0.1 %; EOSINOPHIL # 0.1 K/uL (0.0-0.5); EOSINOPHIL % 0.5 %; HEMOGLOBIN 11.8 g/dL (11.0-16.0); IMMATURE GRANULOCYTE # 0.1 K/uL (0.0-0.3); IMMATURE GRANULOCYTE % 0.8 %; LYMPHOCYTE # 1.1 K/uL (0.8-4.0); LYMPHOCYTE % 7.3 %; MCV 98.9 fl (83.0-98.0); MONOCYTE # 0.8 K/uL (0.0-1.0); MONOCYTE % 5.5 %; NEUTROPHIL # (ANC) 12.5 K/uL (1.4-9.0); NEUTROPHIL % 85.8 %; NRBC % 0 /100WBC (0-0.00); RBC 3.69 M/uL (3.50-5.50); RDW-CV 13.5 % (11.9-14.6); WBC 14.6 K/uL (4.0-11.0)
[2016-11-06 03:38] LABS: HEMATOCRIT 36.5 % (37.0-53.0); MCHC 32.3 gm/dL (32.0-36.5); PLATELET COUNT 246 K/uL (150-450)
[2016-11-06 03:57] LABS: ALBUMIN 2.2 gm/dL (3.5-5.0); ALK PHOS 113 IU/L (33-138); ALT 26 IU/L (12-78); ANION GAP 17.7 (10.0-19.0); AST 21 IU/L (10-40); BLOOD UREA NITROGEN 38 mg/dL (6-24); CALCIUM 8.2 mg/dL (8.5-10.5); CHLORIDE 111 mMol/L (96-110); CO2 18 mMol/L (22-32); CPK 19 IU/L (35-332); CREATININE 1.6 mg/dL (0.6-1.3); ESTIMATED GFR (MDRD EQUATION) 43; MAGNESIUM 1.5 mg/dL (1.3-2.6); POTASSIUM 4.7 mMol/L (3.7-5.1); SODIUM 142 mMol/L (135-145); TOTAL BILIRUBIN 0.7 mg/dL (0.0-1.5); TOTAL PROTEIN 5.7 g/dL (6.0-8.4)
--- NOTE | 2016-11-06 04:20 | NUR ---
this is a 66 year old male pt for dr. hanson , karma, saqib and hospitalists who originally came in for a robot assisted prostocystectomy w/ ileal conduit formation. pt is a/o x3. pt has been on tele and had 2 episoded of 7beat runs of v-tach during the day shift junaid hernández's were aware of. pt asymptomatic. about 0210 recieved call from tele that pt was having a few similar episodes but was having them more frequently, went to check on pt , tele called again saying he was spending more time in v-tach than having regular beats. pt was pale, mottling all over his body and shivering uncontrolably, temp was 97.9, bp was initially 136/58 hr 124, initially unable to get o2 sat, pt placed on 5 l per nc sats 88-90%. pt has d5 1/2 ns @ 120 to right wrist. new iv to l inner wrist has abx running at the current time-levequin and vanco. ileo conduit to right lower abd has good uop. pt had mika drain pulled from left side of abd. that site has symone and tagederm and still has lots of drainage, dressing changed x2 this shift. pt did have 1 emesisof 400ml earlier in the shift, no further c/o nausea. pt has had minimal c/o pain no prn pain meds since 1609. pt spiked temp of 100.3 and preasures returned to pt baseline after being as high as 160/94.
--- NOTE | 2016-11-06 06:36 | NUR ---
post ALUMINUM WELDER, pt transferred to ICU for sepsis workup. Alert and oriented, 6 liters/NS. pink, warm and dry. Ileoconduit draining clear yellow urine. pt denies any pain. raised red rash noted to left forearm.
[2016-11-06 07:53] LABS: INR - (THERAPEUTIC) 1.1 (0.9-1.1)
[2016-11-06 08:05] LABS: ALBUMIN 1.8 gm/dL (3.5-5.0); ANION GAP 15.1 (10.0-19.0); CALCIUM 7.4 mg/dL (8.5-10.5); CREATININE 1.8 mg/dL (0.6-1.3); POTASSIUM 4.1 mMol/L (3.7-5.1); TOTAL BILIRUBIN 0.7 mg/dL (0.0-1.5); TOTAL PROTEIN 4.8 g/dL (6.0-8.4)
[2016-11-06 08:14] LABS: BICARBONATE 17.4 mmol/L (18.0-23.0); PCO2 38 mmHg (35-45); PO2 68 mmHg (80-90)
[2016-11-06 08:31] LABS: BICARBONATE 16.3 mmol/L (18.0-23.0); PCO2 31 mmHg (35-45)
[2016-11-06 08:32] LABS: PO2 82 mmHg (80-90)
[2016-11-06 10:12] LABS: CPK 29 IU/L (35-332)
[2016-11-06 11:28] LABS: BILIRUBIN URINE NEGATIVE (NEGATIVE); BLOOD URINE 250 /UL (NEGATIVE); COLOR URINE YELLOW (YELLOW); GLUCOSE URINE NEGATIVE (NEGATIVE); KETONE URINE NEGATIVE (NEGATIVE); LEUKOCYTES URINE 100 /UL (NEGATIVE); NITRITE URINE NEGATIVE (NEGATIVE); PROTEIN URINE NEGATIVE (NEGATIVE); UROBILINOGEN URINE NORMAL (NORMAL)
[2016-11-06 11:29] LABS: TURBIDITY URINE CLEAR (CLEAR)
[2016-11-06 11:36] LABS: RBC URINE 0-2 #/HPF (NEGATIVE)
[2016-11-06 11:37] LABS: BACTERIA URINE RARE (NEGATIVE); EPITHELIAL URINE RARE #/HPF (NEGATIVE); MUCUS URINE 1+ (NEGATIVE); YEAST URINE FEW (NEGATIVE)
[2016-11-06 14:15] LABS: ANION GAP 16.3 (10.0-19.0); CALCIUM 8.2 mg/dL (8.5-10.5); CREATININE 1.6 mg/dL (0.6-1.3); MAGNESIUM 2.2 mg/dL (1.3-2.6); POTASSIUM 4.3 mMol/L (3.7-5.1)
--- NOTE | 2016-11-06 16:34 | NUR ---
Significant Event:PATIENT IS A/OX3. A-FIB WITH HR'S:70-80. INCREASED PO AMIODARONE TO 400MG BID. OCCAISIONAL PVC'S, IS AWARE. LEVOPHED DRIP STARTED AT 0828 AND TITRATED TO OFF AT 1611 TO KEEP MAP > 65. AFEBRILE. GAVE ONE LITER NS BOLUS IV X 1. REPLACED 2GM MG, MG RECHECK 2.2. TITRATED TO 3L NC FROM 6L. LUNGS ASCULTATED, CLEAR AND DIMINISHED THROUGHOUT. SPO2 HAS BEEN >93%. CLEAR LIQUID DIET, POOR APPETITE. REFUSED MEALS. HYPOACTIVE BOWEL SOUNDS, NO BM. ILIOCONDUIT BAG AND WAFER CHANGED AND ILIOCONDUIT PLACED TO UROMETER BAG. URINE OUTPUT 85-190 ML PER HOUR. YELLOW UOP WITH WHITE MUCOUS NOTED AT TIMES. PRN NORCO X 1 GIVEN FOR ANTICIPATED PAIN. PATIENT REPOSITIONS SELF IN BED. ACCU CHECKS Q6H, NONE TREATED. Follow up: CONTINUED TO MONITOR VITALS AND ANTIOBIOTICS.
[2016-11-07 05:21] LABS: BASOPHIL % 0.2 %; EOSINOPHIL # 0.2 K/uL (0.0-0.5); EOSINOPHIL % 1.4 %; HEMATOCRIT 30.1 % (37.0-53.0); HEMOGLOBIN 9.7 g/dL (11.0-16.0); IMMATURE GRANULOCYTE # 0.2 K/uL (0.0-0.3); IMMATURE GRANULOCYTE % 1.4 %; LYMPHOCYTE # 1.5 K/uL (0.8-4.0); LYMPHOCYTE % 11.1 %; MCHC 32.2 gm/dL (32.0-36.5); MCV 99.3 fl (83.0-98.0); MONOCYTE # 0.9 K/uL (0.0-1.0); MONOCYTE % 6.8 %; MPV 10.2 fl (9.4-12.4); NEUTROPHIL # (ANC) 10.5 K/uL (1.4-9.0); NEUTROPHIL % 79.1 %; NRBC % 0 /100WBC (0-0.00); RBC 3.03 M/uL (3.50-5.50); RDW-CV 13.8 % (11.9-14.6); WBC 13.3 K/uL (4.0-11.0)
[2016-11-07 05:32] LABS: ANION GAP 14.2 (10.0-19.0); CALCIUM 7.7 mg/dL (8.5-10.5); CREATININE 1.4 mg/dL (0.6-1.3); MAGNESIUM 1.7 mg/dL (1.3-2.6); POTASSIUM 4.2 mMol/L (3.7-5.1)
[2016-11-07 05:33] LABS: PLATELET COUNT 184 K/uL (150-450)
--- NOTE | 2016-11-07 05:38 | NUR ---
Significant Event: Patient is alert and oriented x 3. Denies pain, numbness, or tingling. Moves spontaneously and follows commands. Generalized weakness. PERRL-3. Controlled afib. On Levo gtt to keep MAP > 65, currently running at 0.02. Have not titrated this shift. Weaned O2 to 1L NC. Lungs clear. Denies SOB or chest pain this shift. Ileoconduit connected to urometer bag with adequate output of yellow urine with occasionally mucous thread. BM last night-liquid brown. Patient refused Colace. Metoprolol held. Clear liquid diet but poor oral intake. 2+ pulses. Midline incision with edges well approximated-open to air. Gauze and tegaderm dressing to previous SONDRA site C/D/I. Bruising to abdomen. IV to left wrist SL with no complications. Midline to right upper arm infusing Levo gtt and intermittent antibiotics and NS with no complications. 1PA, gait belt, walker. SCDs on. Repositions self. Afebrile. 1+ general edema. Q6H accucheks on moderate SSI. Received a bath this shift. Follow up: wean oxygen and levo, Q6H accucheks, monitor intake
--- NOTE | 2016-11-07 10:45 | NUR ---
A - NUT F/U. LIQUID STOOLS. LABS: ACCUCHECK WNL-REAS, BUN/CR 29/1.4, ALB 1.8, WBC 13.3. MEDS: PROTONIX, ZOSYN, SSI, LEVAQUIN, BOWEL. DIET: FULL LIQUID. INTAKE: REF-SIPS. MINIMAL INTAKE SINCE ADMIT. ENSURE CLEAR TID EST NEEDS: 5051-4310 KCAL, 89-107 G PRO. D - INADEQUATE NUTRIENT INTAKE R/T DECREASED APPETITE, ALTERED GI FUNCTION AEB INTAKE RECORD, LIQUID DIET, PREVIOUS NPO STATUS, LIQUID STOOLS. I - GOAL FOR INCREASED NUTRIENT INTAKE. WILL CHANGE ENSURE CLEAR TO ENSURE ENLIVE D/T FULL LIQUID DIET. REC PPN @ 90 ML/HR W/ 500 ML 20% LIPIDS DAILY TO PROVIDE 2102 KCAL AND 92 G PRO UNTIL ORAL DIET IMPROVES. M/E - WILL MONITOR INTAKE, GI FUNCTION F/U IN 2-3 DAYS.
--- NOTE | 2016-11-07 13:57 | NUR ---
Significant Event: Patient neurologically intact. Moves everything spontaneously and upon command. PERRLA. Genralized weakness. Afib. No reports of VTACH. 2+ pedal pulses bilaterally. VSS. MAP > 60 all shift. Levophed shut off at 0800 this AM. Afebrile. Room air with sats in the mid 90s. LS clear and diminished. Ileoconduit with adequate output. BS active X4. MOderate loose BM X2 this shift. Accuchecks q6h with no coverage needed this shift. Full liquid diet. Decreased appetite. Sips and bites. Midline abdominal incision open to air. Site of previous SONDRA drain dressed. C/D/I. L) wrist PIV SLL. CRISTOBAL power glide infusing NS at 75 ml/hr. Intermittent abx. 1 assist with GB and walker. [place] given this afternoon for pain. Pleasant and cooperative with cares. Follow up: MSU status
--- NOTE | 2016-11-07 16:46 | NUR ---
Introduced self and CM role to Antwon. He tells me he lives here in [place] alone, but has good support from friends and family. Prior to coming into the hospital, he reports he was independent and was getting around at home fine, did all of his own medications and had no major issues. Antwon states he has a FWW at home to use if he needs it, but doesn't think he will have to use it. He does his own medications at home, reports to me that he only was taking 4 pills per day and was having no issues with managing these. Antwon has family or a friend that he will call when he is ready to dismiss. Has no concerns about going home when deemed medically stable. Denies any need for [facility] follow up at this point. His only question was where is was going to have to purchase his ostomy bags when he was ready to leave as he didn't have any at home. I let him know that nursing would go over all of that prior to him leaving. He was fine with this. No other questions, needs or concerns. CM to continue to follow and assist. Plan home.
--- NOTE | 2016-11-08 03:01 | NUR ---
SIGNIFICANT EVENT: Patient transferred from ICU just prior to shift change. VSS on RA - Map remained above 60, orders to call MD if below. Full liquid diet but refused dinner. 2300 BG of 70 - 4 oz Elrama Juice, 180 mL milk and an applesauce given to prevent hypoglycemia. 0100 BG spot check was 109. Ileoconduit to R) abd has yellow urine with some white sediment draining - 350 out. 2 liquid yellow BM's this shift also. Denies pain. Intermittent IV antibiotics and NS at 75 mL to R) upper arm powerglide. L) wrist is SL. 1PA with walker to BR. Pleasant and cooperative with cares.
[2016-11-08 05:47] LABS: CALCIUM 8.1 mg/dL (8.5-10.5); CREATININE 1.5 mg/dL (0.6-1.3); MAGNESIUM 2.1 mg/dL (1.3-2.6); POTASSIUM 4.3 mMol/L (3.7-5.1)
[2016-11-08 05:49] LABS: ANION GAP 14.3 (10.0-19.0)
--- NOTE | 2016-11-08 17:05 | NUR ---
Significant Event:Is A/O.Has ileoconduit drning yellow urine w/some white sediment.Has SL in upper Rt.arm & Lt.wrist.Has had 4 liq yellowish brown stools.Had norco at 1045.Has been amb with 1 & walker.Had IV Bumex at 1330.Old SONDRA drain site on Lt.side of abd is intact with some serosang.drng showing through.Midline incision(glued) & healing.No N/V.On reg.diet.Is to watch ostomy video on channel #77 before going to bed tonite. Follow up:
--- NOTE | 2016-11-09 05:06 | NUR ---
Significant Event: Pt up to BR x 2 this shift. Refused to ambulate in denney as he has been to the BR so many times. Pt did watch ostomy teaching on channel 77. No c/o pain. Cont on IV antibiotics. Midline IV to right anterior upper arm with good blood return. Follow up: Encourge ambulation.
[2016-11-09 05:40] LABS: BASOPHIL # 0.1 K/uL (0.0-0.2); BASOPHIL % 0.4 %; EOSINOPHIL # 0.1 K/uL (0.0-0.5); EOSINOPHIL % 0.6 %; HEMATOCRIT 29.3 % (37.0-53.0); HEMOGLOBIN 9.4 g/dL (11.0-16.0); IMMATURE GRANULOCYTE # 0.2 K/uL (0.0-0.3); IMMATURE GRANULOCYTE % 1.9 %; LYMPHOCYTE # 1.6 K/uL (0.8-4.0); LYMPHOCYTE % 14.2 %; MCHC 32.1 gm/dL (32.0-36.5); MCV 99.7 fl (83.0-98.0); MONOCYTE # 0.7 K/uL (0.0-1.0); MONOCYTE % 5.8 %; NEUTROPHIL # (ANC) 8.9 K/uL (1.4-9.0); NEUTROPHIL % 77.1 %; NRBC % 0 /100WBC (0-0.00); RBC 2.94 M/uL (3.50-5.50); RDW-CV 13.8 % (11.9-14.6); WBC 11.5 K/uL (4.0-11.0)
[2016-11-09 05:42] LABS: PLATELET COUNT 227 K/uL (150-450)
[2016-11-09 06:10] LABS: CALCIUM 7.8 mg/dL (8.5-10.5); CREATININE 1.4 mg/dL (0.6-1.3); MAGNESIUM 1.6 mg/dL (1.3-2.6); POTASSIUM 3.5 mMol/L (3.7-5.1)
[2016-11-09 06:11] LABS: ANION GAP 14.5 (10.0-19.0)
[2016-11-09 15:11] LABS: MAGNESIUM 2.3 mg/dL (1.3-2.6); POTASSIUM 3.9 mMol/L (3.7-5.1)
--- NOTE | 2016-11-09 16:35 | NUR ---
A-NUTRITION F/U / BUMEX GIVEN. NO C/O N/V. (+)BM; LIQUID STOOLS LABS: NA 145, K+ 3.9, GLU 90, BUN 30, SEASONAL DELIVERY DRIVER 1.4, ALB 1.8 MEDS: PROTONIX, MAG-OX DIET RX: REGULAR W/ENSURE ENLIVE TID. PO INTAKE HAS BEEN 0-50% SINCE LAST F/U. NO REFUSALS NOTED. EST NUTR NEEDS: 4540-2217 KCALS AND 89-107 GM PROTEIN D-AT NUTRITION RISK W/INADEQUATE NUTRIENT INTAKE R/T DECREASED APPETITE, ALTERED GI FXN AEB INTAKE RECORD, RECENT NPO STATUS/LIQUID DIET, LIQUID STOOLS. I-1)CONTINUE ENSURE ENLIVE TID 2)ADD VANILLA MAGIC CUPS BID AT L/D 3)PT WOULD BENEFIT FROM PPN/LIPIDS UNTIL PO INTAKE IMPROVES. RECOMMEND PPN AT 90 ML/HR WITH 500 ML 20% LIPIDS DAILY M/E-GOAL: PO INTAKE >/=50% BY NEXT F/U 1)F/U PO INTAKE, GI, AND POC IN 3-5 DAYS 2)ASSIST NEEDED
--- NOTE | 2016-11-09 17:39 | NUR ---
Significant Event:Is A/O.Has midline SL in Rt.upper arm.Ileoconduit drng yellow urine with white sediment.Has had 3 watery diarrhea stools.Has been amb with walker & 1 assist.Was made NPO this afternoon.No c/o pain.Nausea when tried to eat earlier. Follow up:
--- NOTE | 2016-11-10 04:23 | NUR ---
Significant Event: Pt A&Ox3. VS stable, remains on RA. No complaints of pain, nausea, or vomiting. Has been having diarrhea; held night colace. Needs to ambulate more in denney; tends to spend all day in bed. Stoma pink; has good output. Output straw yellow with mucus-like clots. Ambulates x1 assist w/FWW. To continue with IV ABx, reinforce ostomy teaching. Midline IV to CRISTOBAL, no blood return, but flushes well. Accuchecks q6, moderate scale. NPO, sips with meds. Follow up: Continue encouragement to ambulate. Monitor labs. Continue IV ABx
[2016-11-10 05:22] LABS: CREATININE 1.5 mg/dL (0.6-1.3); POTASSIUM 3.9 mMol/L (3.7-5.1)
[2016-11-10 05:23] LABS: ANION GAP 14.9 (10.0-19.0)
--- NOTE | 2016-11-10 14:47 | NUR ---
Significant Event: Pt denies pain. Up with standby assist. Ambulate in denney x2 so far. Up in recliner x2. Has had 2 loose bm's this shift. Clear liquid diet, advance as tolerated. Duplex scan to left lower leg today d/t swelling. Has a midline IV to right arm. Tele on, called around 1415 and states pt converted into sinus rythym. Ileoconduit to right lower abd draining good amt of yellow urine with white sediment. Incisions approximated to lower abd with skin glue. Follow up:
[2016-11-10 15:46] LABS: BASOPHIL # 0.1 K/uL (0.0-0.2); BASOPHIL % 0.4 %; EOSINOPHIL % 0.1 %; HEMATOCRIT 32.5 % (37.0-53.0); HEMOGLOBIN 10.2 g/dL (11.0-16.0); IMMATURE GRANULOCYTE # 0.4 K/uL (0.0-0.3); IMMATURE GRANULOCYTE % 2.5 %; LYMPHOCYTE # 1.5 K/uL (0.8-4.0); LYMPHOCYTE % 9.3 %; MCH 31.6 pg (27.0-34.0); MCHC 31.4 gm/dL (32.0-36.5); MCV 100.6 fl (83.0-98.0); MONOCYTE # 0.8 K/uL (0.0-1.0); MONOCYTE % 5.1 %; MPV 9.5 fl (9.4-12.4); NEUTROPHIL # (ANC) 13.5 K/uL (1.4-9.0); NEUTROPHIL % 82.6 %; NRBC % 0 /100WBC (0-0.00); RBC 3.23 M/uL (3.50-5.50)
[2016-11-10 15:48] LABS: WBC 16.3 K/uL (4.0-11.0)
[2016-11-10 15:49] LABS: PLATELET COUNT 273 K/uL (150-450)
[2016-11-10 15:52] LABS: INR - (THERAPEUTIC) 1.19 (0.92-1.07); PROTIME 12.5 SECONDS (9.8-11.4)
--- NOTE | 2016-11-11 04:09 | NUR ---
Significant Event:PT AAOX3.PLEASANT WITH ALL CARES AND STAFF. REMAINS ON STRICT BED REST DUE TO DVT IN LOWER LEFT LEG.PT MIDLINE TO RIGHT UPPER ARM CONTINUES TO RUN HEPARIN, AT THIS TIME IS AT 1600 UNITS. NEXT PTT-HP AT 0500. PT IV TO RIGHT WRIST RUNNING FLUIDS.TELE CALLED AND STATES PT WAS BACK IN NORMAL SINUS RYTHM. USES CALL LIGHT APPROP. VSS. ILLEO PATENT WITH ADEQUATE OUTPUT. DRESSING TO LEFT LOWER ABDOMEN CLEAN DRY INTACT. Follow up:
[2016-11-11 05:29] LABS: CALCIUM 8.2 mg/dL (8.5-10.5); CREATININE 1.3 mg/dL (0.6-1.3); MAGNESIUM 2.1 mg/dL (1.3-2.6); POTASSIUM 3.5 mMol/L (3.7-5.1)
[2016-11-11 05:35] LABS: ANION GAP 15.5 (10.0-19.0)
[2016-11-11 12:27] LABS: BASOPHIL % 0.1 %; EOSINOPHIL % 0.3 %; HEMATOCRIT 29.3 % (37.0-53.0); HEMOGLOBIN 9.5 g/dL (11.0-16.0); IMMATURE GRANULOCYTE # 0.3 K/uL (0.0-0.3); IMMATURE GRANULOCYTE % 2.1 %; LYMPHOCYTE # 1.7 K/uL (0.8-4.0); LYMPHOCYTE % 11.6 %; MCH 31.7 pg (27.0-34.0); MCHC 32.4 gm/dL (32.0-36.5); MCV 97.7 fl (83.0-98.0); MONOCYTE # 0.7 K/uL (0.0-1.0); MONOCYTE % 4.9 %; MPV 9.1 fl (9.4-12.4); NEUTROPHIL # (ANC) 12.1 K/uL (1.4-9.0); NRBC % 0 /100WBC (0-0.00); PLATELET COUNT 230 K/uL (150-450)
--- NOTE | 2016-11-11 15:32 | NUR ---
Significant Event: Pt denies pain. On bedrest. Left leg continues to be swollen r/t DVT. Continues on heparin IV drip. PTTHP @ 0700 was 34, noted brief slurred speech and slight facial droop. a/o x3, rest of neuro assessment stable. Dr. Olivarez notified, did not give heparin bolus per protocol and monitor. Did CT of head per Dr. Hernandez and held heparin IV from 11-130 until results were back, negative. Restarted heparin at 1400 and increased rate another 200 so is running at 2000 units/hr as PTTHP at 1330 was 37. Next PTTHP at 2000. Order to not give hepain bolus no matter what including per protocol per MD d/t high risk of subdural hematoma. Ileoconduit to right lower quad putting out good amt of urine. Incision to abd approximated with skin glue. Pt had an drk orange/oily bm. MD aware, as long as it isn't blood tinged it is ok. Need to have PICC nurse look at midline tomorrow as there is a concern it may be infiltrated posteriorly. ADA diet. Follow up:
[2016-11-12 03:03] LABS: BASOPHIL % 0.2 %; EOSINOPHIL % 0.2 %; HEMOGLOBIN 8.9 g/dL (11.0-16.0); IMMATURE GRANULOCYTE # 0.3 K/uL (0.0-0.3); IMMATURE GRANULOCYTE % 1.9 %; LYMPHOCYTE # 1.8 K/uL (0.8-4.0); LYMPHOCYTE % 10.1 %; MCH 32.1 pg (27.0-34.0); MCV 97.5 fl (83.0-98.0); MONOCYTE # 0.9 K/uL (0.0-1.0); MONOCYTE % 4.9 %; MPV 9.2 fl (9.4-12.4); NEUTROPHIL # (ANC) 14.6 K/uL (1.4-9.0); NEUTROPHIL % 82.7 %; NRBC % 0 /100WBC (0-0.00); PLATELET COUNT 230 K/uL (150-450); RBC 2.77 M/uL (3.50-5.50); RDW-CV 13.9 % (11.9-14.6)
[2016-11-12 03:04] LABS: WBC 17.7 K/uL (4.0-11.0)
--- NOTE | 2016-11-12 03:21 | NUR ---
Significant Event:PT AAOX3.PLEASANT WITH ALL CARES AND STAFF.CONTINUES TO BE ON BEDREST DUE TO DVT TO LEFT LEG. LEG CONTINUES TO BE SWOLLEN.PT DENEIS PAIN. TO AREA. PTT-HP WAS 37 THEN WENT TO 128 SO PROTOCOL FOLLOWED FOR THAT. PT CONTINUES TO HAVE VERY LOOST STOOLS. COLACE HELD PER PT REQUEST. IV TO LEFT FOREARM RUNNING HEPARIN, IV TO RIGHT FOREARM RUNNING FLUIDS. MIDLINE CONTIUES TO BE IN PLACE HOWEVER WE ARE NOT USING D/T POSSIBLE INFILTRARION.VSS.TAKES MEDICAITON WHOLE WITH NO COMPLICATIONS. CATH PATENT WELL. Follow up:
--- NOTE | 2016-11-12 12:32 | NUR ---
Student nurse provided patient cares from 0600 to 1230. Brayden Mathew RN, [facility] Instructor
--- NOTE | 2016-11-12 13:20 | NUR ---
A-NUTRITION F/U VISITED W/PT RE: APPETITE AND SUPPLEMENTS. PT'S APPETITE IS POOR AND HE REPORTS THAT WHEN HE EATS SOLID FOOD, HE BECOMES NAUSEAUS. PT DOES NOT WANT THE ENSURE ENLIVE OR MAGIC CUP ENLIVE D/T NAUSEA. HE DID LIKE THE TASTE OF THE MAGIC CUP. OFFERED ENSURE CLEAR; PT AGREEABLE TO TRYING THE APPLE ENSURE CLEAR. ON BEDREST DVT IN L)LEG. LOOSE STOOLS; COLACE HELD, PER PT REQUEST. LABS: NA 146, K+ 3.5, GLU 106, BUN 34, ENVIRONMENTAL REMEDIATION ENGINEER 1.3, ALB 1.8 MEDS: IV FLUIDSD (5% DEXTROSE), NOVOLOG (MOD SS) DIET RX: CONSISTENT CARB W/ENSURE ENLIVE TID AND MAGIC CUP BID. PO INTAKE OVER THE WEEKEND WAS 25-75%, BUT PT HAS REFUSED BRK THIS AM AND HAD ONLY BITES OF LUNCH. EST NUTR NEEDS: 3687-3156 KCALS AND 89-107 GM PROTEIN D-AT NUTRITION RISK W/INADEQUATE INTAKE OF NUTRIENTS R/T ALTERED GI FXN AEB NAUSEA, POOR APPETITE, LOOSE STOOLS, PT REPORT. I-1)D/C ENSURE ENLIVE AND MAGIC CUPS 2)START APPLE ENSURE CLEAR TID W/MEALS 3)RECOMMEND PPN AT 90 ML/HR WITH 500 ML 20% LIPIDS DAILY (2012 KCALS AND 92 GM PROTEIN), UNTIL ORAL INTAKE IMPROVES M/E-GOAL: TOLERANCE OF ORAL DIET 1)F/U PO INTAKE, SUPPLEMENT, GI, AND POC IN 2-3 DAYS 2)ASSIST NEEDED
--- NOTE | 2016-11-12 13:26 | NUR ---
PO INTAKE HAS BEEN INADEQUATE. PT REPORTS NAUSEA WHEN HE HAS SOLID FOOD. ENSURE CLEAR TID BEING OFFERED; PT DECLINES OTHER SUPPLEMENT OPTIONS D/T NAUSEA. RECOMMEND 90 ML/HR PPN WITH 500 ML 20% LIPIDS DAILY, UNTIL ORAL INTAKE IMPROVES.
[2016-11-12 16:50] LABS: ANION GAP 13.9 (10.0-19.0); BLOOD UREA NITROGEN 26 mg/dL (6-24); CHLORIDE 115 mMol/L (96-110); CO2 19 mMol/L (22-32); CREATININE 1.2 mg/dL (0.6-1.3); ESTIMATED GFR (MDRD EQUATION) > 60; POTASSIUM 3.9 mMol/L (3.7-5.1); SODIUM 144 mMol/L (135-145)
--- NOTE | 2016-11-12 17:10 | NUR ---
PT AAOX3. PLEASANT WITH ALL CARES. CONTINUE BEDREST FOR DVT IN LEFT LOWER LEG. PATIENT DENIES PAIN. 1000 PTTHP WAS 75 AND NO CHANGE WAS DONE TO HEPARIN DRIP. NEXT PTTHP CHECK AT 2200. PATIENT HAS HAD LOOSE STOOLS. PATIENT REQUESTING TO NOT TAKE DOCUSATE. MIDLINE TO RIGHT FOREARM WAS CHECKED IT LOOKED INFILTRATED HOWEVER PICC NURSE VISUALIZED THE LINE PLACEMENT, END OF TIP INTACT, AND FLUSHED 30ML WITH NO COMPLICATIONS. DR. CASAREZ SAID OK TO USE. IV IN LEFT FOREARM IN USE WELL. ILEAL CONDUIT OUTPUT SUFFICIENT WITH 1350.
[2016-11-13 05:13] LABS: BASOPHIL % 0.3 %; EOSINOPHIL # 0.1 K/uL (0.0-0.5); EOSINOPHIL % 0.8 %; HEMATOCRIT 28.3 % (37.0-53.0); IMMATURE GRANULOCYTE # 0.3 K/uL (0.0-0.3); IMMATURE GRANULOCYTE % 2.4 %; LYMPHOCYTE # 1.7 K/uL (0.8-4.0); LYMPHOCYTE % 12.1 %; MCH 31.3 pg (27.0-34.0); MCHC 31.8 gm/dL (32.0-36.5); MCV 98.3 fl (83.0-98.0); MONOCYTE # 0.7 K/uL (0.0-1.0); MONOCYTE % 4.9 %; MPV 9.3 fl (9.4-12.4); NEUTROPHIL % 79.5 %; NRBC % 0 /100WBC (0-0.00); PLATELET COUNT 235 K/uL (150-450); RBC 2.88 M/uL (3.50-5.50); RDW-CV 13.8 % (11.9-14.6); WBC 13.8 K/uL (4.0-11.0)
[2016-11-13 05:27] LABS: ANION GAP 11.9 (10.0-19.0); BLOOD UREA NITROGEN 25 mg/dL (6-24); CALCIUM 7.8 mg/dL (8.5-10.5); CO2 19 mMol/L (22-32); CREATININE 1.2 mg/dL (0.6-1.3); ESTIMATED GFR (MDRD EQUATION) > 60; POTASSIUM 3.9 mMol/L (3.7-5.1); SODIUM 143 mMol/L (135-145)
[2016-11-13 05:28] LABS: CHLORIDE 116 mMol/L (96-110)
--- NOTE | 2016-11-13 06:02 | NUR ---
Significant Event: Pt remains on bedrest. Turned q 2-3 hours for open area to coccyx. No BM's this shift. No c/o pain. Next PTT-HP 1100. Ileostomy patant with mucous shreds. Follow up: Cont to monitor. Bedrest. Heparin drip
--- NOTE | 2016-11-13 16:52 | NUR ---
AAOx3. Up as tolerated with assist. Midline to CRISTOBAL infiltrated. Both R)arm IVs d/c'd. Elevate right arm. ADA diet; tolerating small amounts. BS AC/HS; no insulin given. LFA IV infusing Heparin per protocol Q24hr PTTHP next @1100 tomorrow. Ileoconduit draining yellow urine. Midline incision well approximated and intact. Gave [place] x1 for c/o abdominal pain. Now only hurts when he coughs, then dissipates. VSS, afebrile, flatus.
--- NOTE | 2016-11-13 23:42 | NUR ---
10/30 ASHLI ASSISTED PROSTO CYSTECOMY W/ILEAL DRAINING TO CATH BAG. RAPID CALLED ON 11-06 TRANSFERED TO ICU FOR SEPSIS TRANSFERED BACK TO MSU ON 11-07. HX OF AFIB TELE CALLED PATIENT WAS IN V-TACH 4-24 BEATS THEN SINUS AND CONTIUNED TO GO BETWEEN V-TACH A-FIB AND SINUS RHYTHMS. DR. JOINER WAS CALLED AND HE REQUESTED TRANSFER TO PCU. LAST VS WERE 98.3T 24 R, 127/64 B/P, 111 P, 95% ON RA. NO COMPLAINTS OF PAIN OR DISCOMFORT. HISTORY OF ISCHEMIC STROKE MAY NOT HAVE A BOLUS NOT EVEN HEPARIN. CURRENTLY HAS A DVT IN LEFT LOWER EXTREMITY, ON HEPARIN DRIP SET AT 1600 UNITS PER HOUR. NEXT PTTHP IN AM AT 1100. ACHS, HS 88 NO INSULIN GIVEN OPEN AREAS TO COCCYX REFUSES TO STAY ON SIDE.
[2016-11-14 06:34] LABS: BASOPHIL % 0.3 %; EOSINOPHIL # 0.1 K/uL (0.0-0.5); EOSINOPHIL % 0.4 %; HEMATOCRIT 29.3 % (37.0-53.0); HEMOGLOBIN 9.7 g/dL (11.0-16.0); IMMATURE GRANULOCYTE # 0.3 K/uL (0.0-0.3); IMMATURE GRANULOCYTE % 2.2 %; LYMPHOCYTE # 1.5 K/uL (0.8-4.0); LYMPHOCYTE % 10.1 %; MCH 32.2 pg (27.0-34.0); MCHC 33.1 gm/dL (32.0-36.5); MCV 97.3 fl (83.0-98.0); MONOCYTE # 0.8 K/uL (0.0-1.0); MONOCYTE % 5.3 %; MPV 9.4 fl (9.4-12.4); NEUTROPHIL # (ANC) 12.3 K/uL (1.4-9.0); NEUTROPHIL % 81.7 %; NRBC % 0 /100WBC (0-0.00); PLATELET COUNT 239 K/uL (150-450); RBC 3.01 M/uL (3.50-5.50); RDW-CV 14.1 % (11.9-14.6)
[2016-11-14 06:45] LABS: ANION GAP 13.3 (10.0-19.0); BLOOD UREA NITROGEN 27 mg/dL (6-24); CO2 19 mMol/L (22-32); CREATININE 1.2 mg/dL (0.6-1.3); ESTIMATED GFR (MDRD EQUATION) > 60; MAGNESIUM 1.8 mg/dL (1.3-2.6); POTASSIUM 4.3 mMol/L (3.7-5.1); SODIUM 144 mMol/L (135-145)
[2016-11-14 06:46] LABS: CHLORIDE 116 mMol/L (96-110)
--- NOTE | 2016-11-14 07:12 | NUR ---
Significant Event: Patient alert and oriented x3. Rhythm changes from normal sinus to V-Tach to A-Fib throughout shift. Patient is asymptomatic with changes. All other vital signs stable. On room air. No C/O pain. Heparin gtt continues at 1600 units/hr. Next PTTHP at 1100. No boluses due to Ischemic stroke hx. Edema present to left leg and foot. Foot elevated. IV inflitrate to right arm on MSU. Edema, redness, and leakage to arm. Patient has no pain to arm. Warm blanket applied. Midline incision healing. Dressing to left abdomen C/D/I. Ileal conduit patent with 550ml uop. Small open sore to coccyx. Moisture barrier applied. Patient repositions self frequently. BM x1 this shift. Negative for C-Diff. Calm and cooperative with all cares. Follow up: Labs this morning.
--- NOTE | 2016-11-14 19:11 | NUR ---
PT A&OX3. COOPERATIVE WITH CARES. USES CALL LIGHT APPROPRIATELY. VSS. AFEBRILE. 1A GAITBELT/WALKER. DVT TO LEFT LEG. PENUMATIC TO RIGHT. LIMB ALERT TO RIGHT ARM-IV INFILTRATED. PT IS TO RECIEVE NO BOLUS DOSES-HX OF ISCHEMIC STROKE. 1BM THIS SHIFT.
--- NOTE | 2016-11-15 04:46 | NUR ---
A/O. HR 50s. SBP 100-130s. ROOM AIR. AFEBRILE. HEPARIN AT 1600U/HR. NEXT PTTHP AT 0500. NPO SINCE [place] FOR TYROID SCAN TODAY. DENIES PAIN. REMAINS IN NSR THROUGHOUT NIGHT. 1400 UOP COUNDUIT. 1A GARETH.
[2016-11-15 05:21] LABS: BASOPHIL % 0.3 %; EOSINOPHIL # 0.1 K/uL (0.0-0.5); HEMATOCRIT 28.3 % (37.0-53.0); HEMOGLOBIN 8.9 g/dL (11.0-16.0); IMMATURE GRANULOCYTE # 0.2 K/uL (0.0-0.3); IMMATURE GRANULOCYTE % 1.8 %; LYMPHOCYTE # 1.5 K/uL (0.8-4.0); LYMPHOCYTE % 13.6 %; MCH 31.3 pg (27.0-34.0); MCHC 31.4 gm/dL (32.0-36.5); MCV 99.6 fl (83.0-98.0); MONOCYTE # 0.7 K/uL (0.0-1.0); MONOCYTE % 5.8 %; MPV 9.7 fl (9.4-12.4); NEUTROPHIL # (ANC) 8.8 K/uL (1.4-9.0); NEUTROPHIL % 77.5 %; NRBC % 0 /100WBC (0-0.00); PLATELET COUNT 231 K/uL (150-450); RBC 2.84 M/uL (3.50-5.50); RDW-CV 14.3 % (11.9-14.6); WBC 11.3 K/uL (4.0-11.0)
[2016-11-15 05:25] LABS: INR - (THERAPEUTIC) 1.32 (0.92-1.07); PROTIME 13.9 SECONDS (9.8-11.4)
[2016-11-15 05:36] LABS: BLOOD UREA NITROGEN 25 mg/dL (6-24); CO2 21 mMol/L (22-32); CREATININE 1.2 mg/dL (0.6-1.3); ESTIMATED GFR (MDRD EQUATION) > 60; POTASSIUM 3.9 mMol/L (3.7-5.1)
[2016-11-15 05:41] LABS: ANION GAP 12.9 (10.0-19.0); CHLORIDE 116 mMol/L (96-110); SODIUM 146 mMol/L (135-145)
--- NOTE | 2016-11-15 12:49 | NUR ---
A - NUTRITION F/U - LABS: NA+ 146, GLU 96, BUN/SUPERVISOR [employer]ODUCTS 25/1.2, WBC 11.3. PT W/ 1+ UE EDEMA, 1-3+ TO BLE. PT IS NPO; HAS BEEN EATING ANYWHERE FROM 0-100%. OFFERED ENSURE CLEAR W/ MEALS. D - AT RISK W/ INADEQUATE ORAL INTAKE R/T DECREASED APPETITE AEB INTAKE RECORD. I - GOAL: 50% OR BETTER INTAKE BY DISMISSAL. M/E - WILL CONT TO MONITOR INTAKE AND F/U IN 2-4 DAYS.
--- NOTE | 2016-11-15 18:44 | NUR ---
Significant events: Patient is alert and oreinted x 3. VSS. Lungs clear and diminished. On room air. Loose stools x 4 this shift. Appetitie decreased. Heparin thearapeutic; running at 1600 units/hour. Lower left extremity DVT, 2-3+ edema. Denies pain, shortness of breath, or numbness and tingling. Patient up with one assist and walker to bathroom. 40 meq IV potassium given. 1 gram mag sulfate given. Blood sugars WNL. Follow up: NPO after midnight for nuc med in AM. Continue plan of care. Monitor nutrition and bowel movements. Monitor DVT.
[2016-11-16 04:21] LABS: INR - (THERAPEUTIC) 2.4 (0.92-1.07); PROTIME 25.4 SECONDS (9.8-11.4)
--- NOTE | 2016-11-16 07:01 | NUR ---
Significant Event: AMBULATES 1 ASSIST GAIT BELT WALKER. ILEAL CONDIUT BAG INTACT. HAD 450 ML OUPUT. HAS FLIPPED BACK AND FORTH FROM NORMAL SINUS TO A-FIB WITH RUNS OF V-TACH MULTIPLE TIMES. HE'S BEEN DOING THIS FOR SOME TIME NOW. DR. WEINBERG NOTIFIED AROUND 2200. ALSO DEVELOPED EMESIS, HAVE PRN ORDER FOR PHENERGAN. HAS BEEN NPO FOR SECOND ROUND OF HIS THYROID STUDY THIS AM. HEPARIN INFUSING AT 1500 UNITS/HR, NEXT PTT-HP 10:30. Follow up:
[2016-11-16 11:35] LABS: MAGNESIUM 2.1 mg/dL (1.8-2.6)
--- NOTE | 2016-11-16 12:42 | NUR ---
Social visit with patient today. We discussed discharge plans. he is still planning on returning home on discharge. He states that he has family and friends that will assist if needed. He denies any needs at this time. Will continue to follow.
--- NOTE | 2016-11-16 13:50 | NUR ---
reviewed student charting and on the floor from [id number] damino segura-ccc
--- NOTE | 2016-11-16 18:55 | NUR ---
Significant Event:Patient had rest of thyroid scan done. May have thyroiditis d/t Amiodarone, so amiodarone dc'd and will start Sotalol tonight, Lopressor adjusted. Heparin gtt stopped, INR therapeutic. Has not taken in much food today, has drank some fluids. Continues to c/o intermittent nausea, talked about Phenergren but patient just didn't think he wanted it. No emesis. Had 375 UOP. Ileoconduit intact, site looks good. Accuchecks- 0700-90; 1100-98; and 1700-98. No SSI given. Still have loose greenish colored stools. Follow up:Hoping to go home soon
--- NOTE | 2016-11-17 05:09 | NUR ---
Significant Event: A/0 X 3, COOPERATIVE WITH CARES. AMBULATES 1 ASSIST WITH GAIT BELT/WALKER. HR HAS REMINED NICK IN THE 50'S, NO RUNS OF A-FIB/ABERRANCY OR ANY OTHER ABNOMAL RHYTHMS, HAS RECIEVED 50MG METOPROLOL Q6 HOURS. ILEAL CONDUIT INTACT TO DEPENDENT BAG, ALSO CONNECTED TO UROMETER BAG. 450 OUTPUT. STILL HAVING FREQUENT STOOLS, HELD ALL LAXATIVE MEDS. PO INTAKE HAS STARTED TO INCREASE. HE STATED HE'S STARTING TO FEEL BETTER. DENIED ALL PAIN, NO PAIN MEDS GIVEN. EKG EVERY AM, NOTIFY CARDIOLOGY IF QTC > 480. Follow up:
[2016-11-17 05:11] LABS: BASOPHIL % 0.2 %; EOSINOPHIL # 0.1 K/uL (0.0-0.5); EOSINOPHIL % 1.1 %; HEMATOCRIT 27.4 % (37.0-53.0); HEMOGLOBIN 8.9 g/dL (11.0-16.0); IMMATURE GRANULOCYTE # 0.1 K/uL (0.0-0.3); IMMATURE GRANULOCYTE % 0.8 %; LYMPHOCYTE # 1.6 K/uL (0.8-4.0); LYMPHOCYTE % 12.5 %; MCH 32.2 pg (27.0-34.0); MCHC 32.5 gm/dL (32.0-36.5); MCV 99.3 fl (83.0-98.0); MONOCYTE # 0.9 K/uL (0.0-1.0); MONOCYTE % 7.2 %; MPV 9.4 fl (9.4-12.4); NEUTROPHIL # (ANC) 10.2 K/uL (1.4-9.0); NEUTROPHIL % 78.2 %; NRBC % 0 /100WBC (0-0.00); PLATELET COUNT 252 K/uL (150-450); RBC 2.76 M/uL (3.50-5.50); RDW-CV 14.6 % (11.9-14.6)
[2016-11-17 05:23] LABS: ANION GAP 11.5 (10.0-19.0); CREATININE 1.5 mg/dL (0.6-1.3); POTASSIUM 3.5 mMol/L (3.7-5.1)
[2016-11-17 05:46] LABS: INR - (THERAPEUTIC) 6.82 (0.92-1.07)
--- NOTE | 2016-11-17 18:50 | NUR ---
Significant event: Patient is alert and oriented x2. Went into A-fib around 1415. QRS fluctuates between narrow and wide, Dr was notified of this. Ambulates with stand by assist and walker. Has sorto bag attached to bag for ileoconduit, and is patent. Daily EKG's and to call dr if QTC above 480. Is on ACHS accuchecks. No coverage needed. IV to left Forearm with fluids running at 70mls/hr. Appetite is decreased. NO pain meds given. Cooperative with cares.
[2016-11-18 04:37] LABS: BASOPHIL % 0.2 %; EOSINOPHIL # 0.2 K/uL (0.0-0.5); EOSINOPHIL % 1.6 %; HEMATOCRIT 29.2 % (37.0-53.0); HEMOGLOBIN 9.2 g/dL (11.0-16.0); IMMATURE GRANULOCYTE # 0.1 K/uL (0.0-0.3); IMMATURE GRANULOCYTE % 0.8 %; LYMPHOCYTE # 1.7 K/uL (0.8-4.0); LYMPHOCYTE % 12.9 %; MCH 31.4 pg (27.0-34.0); MCHC 31.5 gm/dL (32.0-36.5); MCV 99.7 fl (83.0-98.0); MONOCYTE % 7.5 %; MPV 9.5 fl (9.4-12.4); NEUTROPHIL # (ANC) 10.1 K/uL (1.4-9.0); NRBC % 0 /100WBC (0-0.00); PLATELET COUNT 222 K/uL (150-450); RBC 2.93 M/uL (3.50-5.50); RDW-CV 14.5 % (11.9-14.6); WBC 13.1 K/uL (4.0-11.0)
[2016-11-18 04:54] LABS: ANION GAP 11.8 (10.0-19.0); CALCIUM 7.8 mg/dL (8.5-10.5); CREATININE 1.3 mg/dL (0.6-1.3); POTASSIUM 3.8 mMol/L (3.7-5.1)
[2016-11-18 04:57] LABS: PROTIME 73.2 SECONDS (9.8-11.4)
[2016-11-18 05:02] LABS: INR - (THERAPEUTIC) 6.84 (0.92-1.07)
--- NOTE | 2016-11-18 05:45 | NUR ---
Significant Event: VSS, PT AFEBRILE. UP TO BATRHOOM X1 THIS SHIFT WITH STANDBY ASSIST. PT CONTINUES ON RA WITH SATS IN THE UPPER 90'S. D5 RUNNING AT 70ML/HR. HR IN THE LOWER 50'S, HAD TO HOLD AM DOSE OF LOPRESSOR. PT IN SINUS NICK. NO CO PAIN OR DISCOMFORT. HAD CRITICAL INR WITH LABS THIS MORNING 6.84. CALLED RESULT TO DR WEINBERG, TOLD TO JUST OBSERVE. Follow up:
--- NOTE | 2016-11-18 16:58 | NUR ---
Significant Event: Patient is alert and oriented x3. VSS- pulse runs in the low 50s and does dip into the high 40's. Thus far per parameters 2 doses of lopressor have been held. Denies chest pain or discomfort. D/C IV fluids. D/C Accuchecks. L)FA IV, SL. Ileoconduit draining well and appears light pink in color. Midline abdominal incision is C/D/I. Old SONDRA site dressing removed from the left abdomen. Had pain in the left lower calf this AM, norco given x1, last at 1035- relief noted. Strecthed it out and work with NovoPedics he stated now he doesnt have any pain. Up with SBA and walker. Has walked in the denney x2, refused to sit in the chair. Open areas to his buttocks aloe applied x3 and turning every 2 hours. Daily EKG's, we are to call if his QTC is >480. Cooperative with cares, refused bag bath or shower.
[2016-11-19 04:06] LABS: BASOPHIL # 0.1 K/uL (0.0-0.2); BASOPHIL % 0.4 %; EOSINOPHIL # 0.2 K/uL (0.0-0.5); EOSINOPHIL % 1.3 %; HEMATOCRIT 29.9 % (37.0-53.0); HEMOGLOBIN 9.6 g/dL (11.0-16.0); IMMATURE GRANULOCYTE # 0.1 K/uL (0.0-0.3); IMMATURE GRANULOCYTE % 0.8 %; LYMPHOCYTE # 1.7 K/uL (0.8-4.0); LYMPHOCYTE % 12.5 %; MCH 31.2 pg (27.0-34.0); MCHC 32.1 gm/dL (32.0-36.5); MCV 97.1 fl (83.0-98.0); MONOCYTE # 0.8 K/uL (0.0-1.0); MONOCYTE % 6.1 %; MPV 9.5 fl (9.4-12.4); NEUTROPHIL # (ANC) 10.8 K/uL (1.4-9.0); NEUTROPHIL % 78.9 %; NRBC % 0 /100WBC (0-0.00); PLATELET COUNT 251 K/uL (150-450); RBC 3.08 M/uL (3.50-5.50); RDW-CV 14.2 % (11.9-14.6); WBC 13.7 K/uL (4.0-11.0)
[2016-11-19 04:23] LABS: ANION GAP 13.1 (10.0-19.0); CALCIUM 7.9 mg/dL (8.5-10.5); CREATININE 1.3 mg/dL (0.6-1.3); POTASSIUM 4.1 mMol/L (3.7-5.1); TOTAL PROTEIN 5.5 g/dL (6.0-8.4)
[2016-11-19 04:26] LABS: PROTIME 66.9 SECONDS (9.8-11.4)
[2016-11-19 04:27] LABS: TOTAL BILIRUBIN 0.4 mg/dL (0.0-1.5)
[2016-11-19 04:33] LABS: INR - (THERAPEUTIC) 6.25 (0.92-1.07)
--- NOTE | 2016-11-19 05:12 | NUR ---
Significant Event: VSS, PT AFEBRILE. UP TO BATRHOOM X2 AND HAD A BM EACH TIME. RESTING IN BED, REPOSITIONS SELF. CRITICAL INR AGAIN THIS AM-6.25. CALLED THIS RESULT TO DR WEINBERG-WILL CONTINUE TO WATCH LONG HGB IS STABLE. ENDOCRINOLOGY TO CONSULT TODAY. APPETITE REMAINS DECREASED. CONTINUES ON RA WITH SATS IN THE MID 90'S. Follow up:
--- NOTE | 2016-11-19 10:57 | NUR ---
A - NUTRITTION F/U. GLU 87, BUN/FORKLIFT WHEEL LOADER 21/1.3, ALB 2.0, WBC 13.7. DIET: REGULAR W/ ENSURE CLEAR TID. INTAKE POOR. PT C/O DECREASED APPETITE, EARLY SATIETY AND FOOD NOT TASTING GOOD. DISLIKES ENSURE CLEAR. RECEPTIVE TO MAGIC CUP AND ENSURE PUDDING. D - AT RISK W/ INADEQUATE ORAL INTAKE R/T DECREASED APPETITE AEB INTAKE RECORD. I - GOAL: IMPROVED INTAKE BY DISMISSAL. M/E - WILL CHANGE SUPPLEMENTS PER PT PREFERENCE. F/U IN 2-4 DAYS IF STILL HERE.
--- NOTE | 2016-11-19 16:18 | NUR ---
Significant Event:a/o x 3.Ambulated in the denney with PT and to the bathroom with SBA. Refuses shower, refuses change of urostomy bag by ALYSSA, RN, Lora. Reports no pain. Tolerating PO fluids and nutrition. ISMAEL Cruz discussed with the patient that he will discuss with Dr Mercado about a plan of care for his illness "to include a more modern anticoagulant like Eliquis or Tapizole and steriods." Patient refused to ambulate in the denney, complaining of leg pain, but declines pain meds when offered. Educated that it is part of his care to walk in the denney as tolerated. Follow up:Dismissal in the next day or 2???
--- NOTE | 2016-11-20 05:05 | NUR ---
Significant Event: A&Ox3, VSS on room air. Bradycardia, HR:50s-70s. Denies needs and pain. Nauseated and dry heaves at 0230, refused any PRN medications. Urostomy intact draining light yellow urine with some sediment into sorto bag. 600ml out. Had 1 large loose BM this shift, stool softener held. Up to bathroom with SBA, refused gait belt. Embarrass given X1 at 0430. Woc RN to come change wafer bag today, as patient refused yesterday. Follow up: continue with plan of care.
[2016-11-20 05:45] LABS: BASOPHIL % 0.3 %; EOSINOPHIL # 0.2 K/uL (0.0-0.5); EOSINOPHIL % 1.3 %; HEMATOCRIT 30.2 % (37.0-53.0); HEMOGLOBIN 9.7 g/dL (11.0-16.0); IMMATURE GRANULOCYTE # 0.1 K/uL (0.0-0.3); LYMPHOCYTE # 1.3 K/uL (0.8-4.0); LYMPHOCYTE % 9.3 %; MCH 31.4 pg (27.0-34.0); MCHC 32.1 gm/dL (32.0-36.5); MCV 97.7 fl (83.0-98.0); MONOCYTE # 0.9 K/uL (0.0-1.0); MONOCYTE % 6.4 %; MPV 9.7 fl (9.4-12.4); NEUTROPHIL % 81.7 %; NRBC % 0 /100WBC (0-0.00); PLATELET COUNT 257 K/uL (150-450); RBC 3.09 M/uL (3.50-5.50); RDW-CV 14.2 % (11.9-14.6); WBC 13.5 K/uL (4.0-11.0)
[2016-11-20 06:09] LABS: PROTIME 56.8 SECONDS (9.1-10.7)
[2016-11-20 06:10] LABS: INR - (THERAPEUTIC) 5.32 (0.89-1.05)
--- NOTE | 2016-11-20 18:32 | NUR ---
Significant Event: Patient alert and oriented x3. Vital signs stable on room air. Up to bathroom with 1/standby assist. Given tylenol for pain at around 11. Scheduled reglan ordered due to patient complaints of nausea and no appetite. Urostomy with 425mL out. Walked in hallway x1. Patient had 2 bowel movements during shift. Open sores to bottom, aleo applied. Pleasant and cooperative with cares. Follow up:
--- NOTE | 2016-11-21 03:55 | NUR ---
Significant Event: A&Ox3, VSS on room air. Bradycardia, max low HR: 48 while sleeping. Patient denies needs. Encouraged to reposition. [place] given X2 for pain during transfers. Patient refused ambulation this evening, said he would after his pain medication kicked in but refused when asked again. Refused supper. No complaints of nausea, "just don't feel like eating". INR 5.35 this am. AM Labs. Follow up: encourage activity, PO fluids, and eating.
[2016-11-21 06:06] LABS: PROTIME 72.8 SECONDS (9.8-11.4)
[2016-11-21 06:07] LABS: CALCIUM 8.1 mg/dL (8.5-10.5); CREATININE 1.3 mg/dL (0.6-1.3)
[2016-11-21 06:13] LABS: INR - (THERAPEUTIC) 6.8 (0.92-1.07)
--- NOTE | 2016-11-21 17:45 | NUR ---
Significant Events: Patient is A&Ox3 and is cooperative with cares. Patient is a one assist. Vital signs: HR 40-60's, SBP 130's. Patient on room air. Pain reported at a 4 in the left lower leg throughout shift. Nausea reported during third assessment, treated with schedule Reglan. Dry heaves only. Lung sounds clear. Urostomy present in right lower quadrant, urine is yellow with sediment present. Slight edema to bilateral feet. Midline abdominal incision is open to air, approximated, and has some ecchymotic areas. Blanchable erythema present on sacrum, with open blisters present. Treated with aloe vesta. IV in right hand is SL. Follow-Up: Continue per plan of care. Dr. Narvaez consulted due to critically high INR values.
--- NOTE | 2016-11-22 04:48 | NUR ---
Significant Event: A/0X3. RESTED IN BED. SBA WITH WALKER UP TO BR. WAS UP 3X TO THE BR THIS SHIFT. TURNED Q 2 HRS SIDE TO SIDE. HAD A MAX TEMP OF 99.2 BEGINNING OF SHIFT BUT AFEBRILE SINCE. VSS ON RA. DENIES PAIN. IV TO R) HAND SL. UROSTOMY CONDUIT INTACT WITH 350 MLS OUT. HAD 3 LOOSE BMS THIS SHIFT. REFUSED SUPPER. NO C/O OF N/V THIS SHIFT. Follow up: CONTINUE WITH PLAN OF CARE.
[2016-11-22 05:41] LABS: PROTIME 79.6 SECONDS (9.8-11.4)
[2016-11-22 05:48] LABS: INR - (THERAPEUTIC) 7.43 (0.92-1.07)
--- NOTE | 2016-11-22 10:02 | NUR ---
A - NUTRITION F/U. NO NEW LABS. PT W/ 1-2+ EDEMA T/O. OPEN SORES TO BOTTOM. DIET: REGULAR W/ MAGIC CUPS AND ENSURE PUDDING. FREQUENT REFUSALS D/T NAUSEA. D - AT RISK W/ INADEQUATE ORAL INTAKE R/T NAUSEA AEB INTAKE RECORD. REGLAN ADDED. I - GOAL: 50% OR BETTER INTAKE BY DISMISSAL. M/E - 1) ENCORUAGE INTAKE WHEN PT IS FEELING WELL. 2) WILL F/U IN 2-4 DAYS.
--- NOTE | 2016-11-22 10:25 | NUR ---
reviewed student charting and on the floor from [id number] damion segura--ccc
--- NOTE | 2016-11-22 16:01 | NUR ---
WORKED WITH PT/OT. HR 50'S, SATS 95% ON RA. SBP 130/140'S. DIETARY CONSULT DISCUSS NUTRITIONAL OPTIONS. JARON FOR LEFT CALF PAIN.
--- NOTE | 2016-11-23 05:00 | NUR ---
Significant Event: VSS, PT AFEBRILE. RESTING IN BED THE ENTIRE SHIFT, PT REPOSITIONS SELF FREQENTLY. CONTINUES ON RA WITH SATS IN THE MID TO UPPER 90'S. PT DID VOICE SOME CO PAIN IN HIS LEFT LEG, DID NOT WANT ANY PAIN MEDICATION. NO BM THIS SHIFT. HR CONTINUES TO BE NICK IN THE 50'S. Follow up:
[2016-11-23 06:06] LABS: HEMATOCRIT 31.2 % (37.0-53.0); HEMOGLOBIN 9.8 g/dL (11.0-16.0)
[2016-11-23 06:22] LABS: PROTIME 90.7 SECONDS (9.8-11.4)
[2016-11-23 06:25] LABS: INR - (THERAPEUTIC) 8.45 (0.92-1.07)
--- NOTE | 2016-11-23 11:06 | NUR ---
CONSULT RECEIVED D/T PREALB 9.0, [facility]. PT CURRENTLY RECEIVES MAGIC CUP @ L, ENSURE PUDDING @ D. REFUSED ENSURE CLEAR. WILL INCREASE MAGIC CUP TO L&D AND ENSURE PUDDING FOR B&D. WILL CONTINUE TO FOLLOW.
--- NOTE | 2016-11-23 11:28 | NUR ---
reviewed student charting and on the floor from [id number] damion [id number]
[2016-11-23 16:59] LABS: INR - (THERAPEUTIC) 2.31 (0.92-1.07); PROTIME 24.5 SECONDS (9.8-11.4)
--- NOTE | 2016-11-23 17:00 | NUR ---
PATIENT HAD CRITICAL HIGH INR LEVEL. ORAL VIT K GIVEN X1 THIS AM. LABS ORDERED THIS AFTERNOON. POOR APPETITE, REFUSED TO GET UP WITH PHYSICAL THERAPY THIS AFTERNOON. POSSIBLY HOME TOMORROW.
--- NOTE | 2016-11-24 04:40 | NUR ---
A/O. HR 50s. SBP 130s. ROOM AIR. AFEBRILE. ILLIO CONDUIT INTACT 550ML UOP. BMx1. UP SBA WALKER. DENIES PAIN. POSSIBLE DISMISSAL TODAY PENDING INR.
[2016-11-24 06:24] LABS: BASOPHIL # 0.1 K/uL (0.0-0.2); BASOPHIL % 0.4 %; EOSINOPHIL # 0.4 K/uL (0.0-0.5); EOSINOPHIL % 2.7 %; HEMATOCRIT 35.3 % (37.0-53.0); HEMOGLOBIN 10.5 g/dL (11.0-16.0); IMMATURE GRANULOCYTE # 0.2 K/uL (0.0-0.3); IMMATURE GRANULOCYTE % 1.3 %; LYMPHOCYTE # 2.1 K/uL (0.8-4.0); LYMPHOCYTE % 14.3 %; MCH 30.3 pg (27.0-34.0); MCHC 29.7 gm/dL (32.0-36.5); MONOCYTE # 1.1 K/uL (0.0-1.0); MONOCYTE % 7.7 %; MPV 9.7 fl (9.4-12.4); NEUTROPHIL # (ANC) 10.6 K/uL (1.4-9.0); NEUTROPHIL % 73.6 %; NRBC % 0 /100WBC (0-0.00); RBC 3.46 M/uL (3.50-5.50); RDW-CV 14.3 % (11.9-14.6); WBC 14.4 K/uL (4.0-11.0)
[2016-11-24 06:26] LABS: PLATELET COUNT 372 K/uL (150-450)
[2016-11-24 06:35] LABS: ALBUMIN 2.2 gm/dL (3.5-5.0); ANION GAP 14.7 (10.0-19.0); CALCIUM 8.8 mg/dL (8.5-10.5); CREATININE 1.4 mg/dL (0.6-1.3); POTASSIUM 4.7 mMol/L (3.7-5.1); TOTAL PROTEIN 6.4 g/dL (6.0-8.4)
[2016-11-24 06:36] LABS: TOTAL BILIRUBIN 0.7 mg/dL (0.0-1.5)
[2016-11-24 06:37] LABS: INR - (THERAPEUTIC) 1.42 (0.92-1.07)
[2016-11-24] MEDS ORDERED: COLACE100 MG PO (13:48)
[2016-11-24] MEDS ORDERED: MAG-OX-400(241400 MG PO (13:49)
[2016-11-24] MEDS ORDERED: PROTONIX40 MG PO (13:51)
[2016-11-24] MEDS ORDERED: K-TAB ER20 MEQ PO (13:52)
[2016-11-24] MEDS ORDERED: SODIUM BICARBO650 MG PO (13:57)
[2016-11-24] MEDS ORDERED: TOPROL XL200 MG PO (13:59)
[2016-11-24] MEDS ORDERED: XARELTO15 MG PO (14:00)
--- NOTE | 2016-11-24 15:00 | NUR ---
D/C ORDERS TO HOME RECIEVED. REVIEWED WITH THE PATIENT ALL D/C INFORMATION INCLUDING MEDICATIONS, FOLLOW-UP APPT;HE IS TO CALL ON SATURDAY AND MAKE THE TWO APPTS FOR PCP AND UROLOGY; INSTRUCTIONS, AND CARES REVIEWED. JAY PRINTOUTS GIVEN ON ALL NEW MEDICATIONS. REFUSED PNEUMONIA VACCINE. PIV D/C'D AND CATHETER INTACT. SUPPLIES FOR UROSTOMY (EXTRA BAGS AND EDUCATION FOLDER LEFT IN ROOM BY THE WOC RN) WAS ALL SENT HOME WITH THE PATIENT. HE VERBALIZED UNDERSTANDING OF ALL UROSTOMY EDUCATION THAT HAD BEEN PREVIOUSLY DONE BY THE WOC RN AND HAD NO OTHER QUESTIONS OR CONCERNS AT THE TIME OF D/C. TAKEN BY W/C AND MYSELF TO THE FRONT ENTRANCE OF THE HOSPITAL AND HIS FRIEND TO DRIVE HIM HOME.
== END 2016-11-24 15:00 | disposition disaster alternative care site (69) | DRG 653 ==
LOC: GPOC 13:40 → GPCU 10-30 05:21 → GMSU 10-30 05:21 → EDSTATUS 10-30 14:00 → GMSU 10-30 16:52 → GICU 11-06 04:53 → GMSU 11-07 17:40 → GPCU 11-14 00:20
PROVIDERS: Family Medicine; Hospitalist; Internal Medicine; Internal Medicine Cardiovascular Disease; Internal Medicine Hematology & Oncology; Internal Medicine Interventional Cardiology; Nurse Practitioner; Nurse Practitioner Family; Surgery; ADMIT Urology
PROC: 07BJ4ZZ Excision of Left Inguinal Lymphatic, Percutaneous Endoscopic Approach (ICD-10-PCS; principal; 2016-10-30)
PROC: 0VT04ZZ Resection of Prostate, Percutaneous Endoscopic Approach (ICD-10-PCS; principal; 2016-10-30)
PROC: 0T1807C Bypass Bilateral Ureters to Ileocutaneous with Autologous Tissue Substitute, Open Approach (ICD-10-PCS; principal; 2016-10-30)
PROC: 07BH4ZZ Excision of Right Inguinal Lymphatic, Percutaneous Endoscopic Approach (ICD-10-PCS; principal; 2016-10-30)
PROC: 0WQF0ZZ Repair Abdominal Wall, Open Approach (ICD-10-PCS; principal; 2016-10-30)
PROC: 0TTB4ZZ Resection of Bladder, Percutaneous Endoscopic Approach (ICD-10-PCS; principal; 2016-10-30)
DX: C67.9 Malignant neoplasm of bladder, unspecified (principal); A41.9 Sepsis, unspecified organism; J96.01 Acute respiratory failure with hypoxia; R65.21 Severe sepsis with septic shock; N17.9 Acute kidney failure, unspecified; N18.3 Chronic kidney disease, stage 3 (moderate); D68.8 Other specified coagulation defects; I82.402 Acute embolism and thrombosis of unspecified deep veins of left lower extremity; E06.0 Acute thyroiditis; E44.0 Moderate protein-calorie malnutrition; I12.9 Hypertensive chronic kidney disease with stage 1 through stage 4 chronic kidney disease, or unspecified chronic kidney disease; I48.0 Paroxysmal atrial fibrillation; K42.9 Umbilical hernia without obstruction or gangrene; R41.9 Unspecified symptoms and signs involving cognitive functions and awareness; B96.89 Other specified bacterial agents as the cause of diseases classified elsewhere; E78.5 Hyperlipidemia, unspecified; E66.9 Obesity, unspecified; E03.9 Hypothyroidism, unspecified; Z68.27 Body mass index [BMI] 27.0-27.9, adult; E07.81 Sick-euthyroid syndrome; T46.2X1A Poisoning by other antidysrhythmic drugs, accidental (unintentional), initial encounter
CPT/HCPCS: A9270; A9500; A9516; C1751; C8924; C9113; J0690; J1100; J1644; J1885; J1940; J1956; J2001; J2020; J2270; J2405; J2543; J2765; J2785; J3010; J3370; J3475; J3480; J7030; J7050; J7060; Q9957

== ENCOUNTER 2016-11-25 14:24 | Inpatient (IN) | payer MEDICARE, BC ==
[~2016-11-25] VITALS: Ht 180.3 cm; Wt 76.8 kg
--- NOTE | ~2016-11-25 | DS ---
PATIENT'S NAME: MARGUERITE YEPEZ [facility] AGE: 66 Y [address] ROOM: [address] [address] LOCATION: [facility] ADMIT DATE: 11/25/2016 Discharge Summary DISCHARGE DATE: 12/07/2016 FAMILY PHYSICIAN: Luis Carlos Shipley MD ATTENDING PHYSICIAN: Shobha Hernandez CONSULTING PHYSICIANS: 1. Dr. Meneses. 2. Dr. Vignesh Damon. DISCHARGE DIAGNOSES: 1. Gastroparesis. 2. Amiodarone induced thyroiditis. 3. Severe protein-calorie malnutrition. 4. Adult failure to thrive. 5. Paroxysmal atrial fibrillation. 6. Long-term anticoagulation use. 7. Essential hypertension. 8. History of left lower extremity deep vein thrombosis. 9. Methicillin-resistant Staphylococcus aureus urinary tract infection. 10. History of bladder cancer status post cystoprostatectomy and ileal conduit. HOSPITAL COURSE: Please refer to the admitting history and physical as dictated by Dr. Hernandez. Briefly, the patient had been recently discharged from [facility] and was readmitted for nausea, vomiting, adult failure to thrive, and generalized weakness. PT and OT were consulted. He is placed on telemetry monitoring. He was in atrial fibrillation with episodes of ventricular tachycardia. Cardiology was consulted and did monitor the patient throughout the hisstay. his rates were stable on Eliquis. He was asymptomatic with his episodes of nonsustained ventricular tachycardia. 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 General Surgery was consulted for the cholelithiasis. They felt as though this was not a surgical matter. His white count did go up on the day after admission to 17.5. Blood cultures were obtained, which were negative after 5 days. Procalcitonin level was obtained and was 0.19 with subsequent procalcitonin at 0.22. Urine culture was obtained. It did reveal staph species. He was started on Keflex 500 mg p.o. b.i.d. originally, after further cultures results were obtained and did reveal MRSA in the urine. He was started on vancomycin IV for 7 days which was completed prior to discharge. Due to the patient's poor nutritional status and nausea and vomiting, Dobbhoff was placed and tube feedings were initiated. He did have difficulty tolerating the tube feedings at first, however, eventually was PATIENT'S NAME: MARGUERITE YEPEZ [facility] AGE: 66 Y [address] ROOM: [id number] [place], [place] [address] LOCATION: [facility] ADMIT DATE: 11/25/2016 Discharge Summary DISCHARGE DATE: 12/07/2016 FAMILY PHYSICIAN: Luis Carlos Shipley MD ATTENDING PHYSICIAN: Shobha Hernandez able to tolerate it at the goal rate. Gastroenterology was consulted because of further nausea and vomiting. EGD was performed, which was negative for obstruction. He was started on Remeron 7.5 mg p.o. for an appetite stimulation. Due to his low magnesium, his magnesium was replaced intermittently throughout his stay, IV. He was started on Reglan 5 mg 30 minutes prior to meals. Due to the patient's history of amiodarone induced thyroiditis, free T4 and TSH were both checked. TSH was found to be less than 0.005, and free T4 of 4.2. He was started on dexamethasone 4 mg IV 3 times a day. Cortisol levels were obtained. On 12/07, he was given cosyntropin dose. Cortisol level prior to injection was 1.6 at a half an hour after 16.8, and 30 minutes after that 17.4. ACTH level is currently still pending on the day of discharge. It was felt as though the patient likely has gastroparesis secondary to his amiodarone induced thyroiditis. His IV steroids were changed to prednisone 40 mg p.o. daily. Appointment at [facility] was recommended. Appointment was scheduled with Dr. Elias on February 12 at 0320 hours at the [facility] in [place]. The patient was encouraged to eat small frequent meals. By the day of discharge, he was up and ambulatory with a walker in the hallways. He did take some encouragement to move. He was tolerating a regular diet on the day of discharge. It is recommended that he continue PT and OT for his physical deconditioning. Dr. Shipley, the patient's primary care provider was updated on the patient's hospital stay prior to discharge to [facility] for further restorative cares. LABORATORY DATA: Sodium 139 to 148; potassium 4.2 to 5.0; CO2 of 24 to 30; anion gap 11.3 to 16.5; calcium 8.4; BUN upon admit 24, prior to discharge 54; and creatinine upon admit 1.2. It did go as high as 1.3, prior to discharge was 1.2. Albumin 1.9. Alkaline phosphatase 136, AST 49, ALT 32, and GFR remained greater than 60. Troponin is less than 0.040, CK-MB 1.0, and CPK 13. TSH is less than 0.005, free T4 of 4.2. WBCs upon admit 12.5, they went as high as 17.5, prior to discharge were 9.4; hemoglobin remained stable at 9.2 to 11.6; and platelets were 340,000. UA; leukocytes 500, nitrites negative, blood 250, wbc's 20-50, rbc's packed field, epithelial 2-5, and bacteria rare. Stool for C. difficile negative. Blood cultures, no growth at 5 days. Urine culture grew Staphylococcus aureus, MRSA 50,000 to 100,000, and lactobacillus 1000 to 10,000. RADIOLOGY DATA: CT of the abdomen and pelvis, please refer to the Hospital Course. Chest x-ray on 11/29 showed normal chest. DISCHARGE INSTRUCTIONS: 1. The patient will be discharged to [facility]. Dr. Shipley to follow. 2. Follow up with Dr. Shipley in 3 days with a CBC and BMP at that time. 3. Follow up with Dr. Elias, tilting head band sawyer at [facility] on February 12 at 0320 PATIENT'S NAME: MARGUERITE [facility]Z [facility] AGE: 66 Y [address] ROOM: [address] [address] LOCATION: [facility] ADMIT DATE: 11/25/2016 Discharge Summary DISCHARGE DATE: 12/07/2016 FAMILY PHYSICIAN: Luis Carlos Shipley MD ATTENDING PHYSICIAN: Shobha Hernandez. 4. Code Status: Full. 5. Isolation: Contact. 6. Diet: Low fat, small portions. 7. Weightbearing as tolerated with assistance. Encouraged ambulation q.i.d. PT and OT to evaluate and treat as indicated. 8. Oxygen as needed to keep sats greater than 90%. 9. Fasting q.a.m. Accu-Cheks. Call Dr. Shipley if greater than 200. 10. Ileal conduit. See dismissal instructions. 11. Addendum per [facility] nurses. DISCHARGE MEDICATIONS: 1. Lipitor 40 mg p.o. at bedtime. 2. Colace 100 mg p.o. b.i.d. 3. Lactate 1 tablet p.o. twice a day. 4. Magnesium oxide 400 mg p.o. at bedtime. 5. Reglan 5 mg p.o. 30 minutes prior to meals. 6. Toprol-XL 200 mg p.o. daily. Hold if systolic blood pressure is less than 100 or heart rate is less than 60. 7. Remeron 7.5 mg p.o. at bedtime. 8. Protonix 40 mg p.o. daily. 9. Potassium chloride 20 mEq p.o. x3 days, then as per PCP with labs to be drawn on 12/10/2016. 10. Xarelto 15 mg p.o. daily. 11. Sodium bicarbonate 650 mg p.o. t.i.d. 12. Tylenol 650 mg p.o. every 4 hours as needed for pain. 13. Biotene spray as needed for dry mouth. 14. Thiamine 100 mg p.o. daily. 15. Prednisone 40 mg p.o. daily. Thank you for allowing us to participate in the care of this patient as he has been hospitalized at [facility]. Time spent at the bedside as well as with consulting physicians, and medication reconciliation as well as care management was 40 minutes. JOSE MIGUEL VERNON APRN FOR MD LAMBERT KING/phill /[id number] d: 12/08/16 1503 t: 12/28/16 1533, DISCHARGE SUMMARY
--- NOTE | ~2016-11-25 | CON ---
PATIENT'S NAME: LUCHO, MARGUERITE Yousif [facility] AGE: 66 Y [address] ROOM: [place] [address] LOCATION: [facility] ADMIT DATE: 11/25/2016 Consultation DISCHARGE DATE: FAMILY PHYSICIAN: Luis Carlos Shipley MD ATTENDING PHYSICIAN: RUBEN CHAUDHRY DATE OF CONSULTATION: 11/27/2016 REASON FOR CARDIOLOGY CONSULT: Nonsustained ventricular tachycardia. HISTORY OF PRESENT ILLNESS: This is a 66-year-old male, who is familiar to [facility]. He was last seen as a hospital inpatient on 11/23/2016 before his discharge. He was subsequently readmitted to the hospital to the Hospitalist Service one day after discharge for complaints of weakness. We were asked to evaluate him during this admission for complaints of asymptomatic ventricular tachycardia on his telemetry. His rhythm and asymptomatology are unchanged from his last evaluation of this rhythm. He denies chest pain, shortness of breath, or palpitations. He is currently having complaints of nausea and vomiting, and is having trouble of keeping any type of food or liquid down for extended period of time. He denies abdominal pain, but overall his main complaint is of fatigue and he does appear to be in depressed mood. PAST MEDICAL HISTORY: 1. Paroxysmal atrial fibrillation. 2. History of ischemic stroke in 2012. 3. Hypertension. 4. Hyperlipidemia. 5. Obstructive sleep apnea. 6. Recent bladder surgery for urothelial carcinoma with urostomy placement. 7. Amiodarone-induced thyroiditis. PAST SURGICAL HISTORY: 1. Right inguinal hernia repair. 2. Ileal conduit surgery during previous admission. 3. Tonsillectomy. 4. Cystoscopy. FAMILY HISTORY: The patient's father had a history of polio. No noted family history to his mother or his mother's parents. SOCIAL HISTORY: The patient is a former cigarette smoker. He smoked a pack and half PATIENT'S NAME: [facility] AGE: 66 Y [address] ROOM: [place] [address] LOCATION: [facility] ADMIT DATE: 11/25/2016 Consultation DISCHARGE DATE: FAMILY PHYSICIAN: Luis Carlos Shipley MD ATTENDING PHYSICIAN: RUBEN CHAUDHRY cigarettes for a total of 35 years. He quit smoking in the year 1999. He denies alcohol or illicit drug use. CURRENT MEDICATIONS: 1. Colace 100 mg p.o. twice daily. 2. Potassium chloride 20 mEq p.o. daily. 3. Lipitor 40 mg p.o. daily. 4. Magnesium oxide 400 mg p.o. twice daily. 5. Protonix 40 mg p.o. daily. 6. Remeron 7.5 mg p.o. daily in the evening. 7. Sodium bicarbonate 650 mg p.o. 3 times daily. 8. Toprol-XL 200 mg p.o. daily. 9. Xarelto 15 mg p.o. daily. MEDICATION ALLERGIES: Hydrochlorothiazide causing low back pain. REVIEW OF SYSTEMS: Pertinent positive review of systems listed in the HPI. All other review of systems evaluated and negative. DIAGNOSTICS: CMS evaluation shows sodium of 142, potassium 4.7, BUN of 25, creatinine 1.3, glucose of 89, and magnesium of 1.8. He has a TSH level of less than 0.005. CBC evaluation shows a white blood cell count of 17.5, hemoglobin of 10.5, hematocrit 33.6, and platelet of 412. Cardiac enzyme trend shows a CPK of 29, then 13. CK-MB of 0.8 then 1.0, and troponin I of less than 0.04 x2 values. PHYSICAL EXAMINATION: VITAL SIGNS: Temperature 98.9, pulse 94, respirations 14, blood pressure 116/52, O2 saturation 92% on room air. The patient weighs 79.2 kg. SKIN: [place], warm, and dry. EYES: Sclerae clear. No xanthelasmas. ENT: Oral mucosa is pink and moist. No jugular venous distention. No carotid bruits. CHEST: Respirations are even and unlabored. LUNGS: Clear to auscultation. HEART: Irregular rate and rhythm. Normal S1, S2. Does have the presence of 2/6 holosystolic murmur. ABDOMEN: Soft and nontender. MUSCULOSKELETAL: Equal muscle strength to upper and lower extremities bilaterally against resistance. EXTREMITIES: Peripheral pulses palpable. No clubbing or cyanosis noted. Does have 1+ lower extremity edema present. PSYCHIATRIC: Alert and oriented. PATIENT'S NAME: MARGUERITE YEPEZ [facility] AGE: 66 Y [address] ROOM: [address] [address] LOCATION: [facility] ADMIT DATE: 11/25/2016 Consultation DISCHARGE DATE: FAMILY PHYSICIAN: Luis Carlos Shipley MD ATTENDING PHYSICIAN: RUBEN CHAUDHRY IMPRESSION AND PLAN: Per Dr. Jessica Panda: 1. Nonsustained ventricular tachycardia. Remained asymptomatic with this rhythm change per his quality assurance monitor. He did undergo recent myocardial perfusion imaging which showed no inducible ischemia. He is tolerating his beta-lexie and has no complaints of angina. His cardiac enzymes are also negative for acute changes of ischemia. 2. Paroxysmal atrial fibrillation, currently anticoagulated with Xarelto and is well rate controlled. 3. Thyroiditis, likely the cause is ventricular ectopy. We will continue to monitor closely. 4. Nausea and vomiting. Currently under evaluation and workup by hospitalist service. Once again, this is a 66-year-old male, well known to our Cardiology service. No sustained ventricular tachycardia. He did have few runs of NSVT. He is currently on a good dose of beta-lexie as well as well anticoagulated with Xarelto for his paroxysmal atrial fibrillation. Last echocardiogram showed a left ventricular ejection fraction of 55% to 60% and once again, he underwent myocardial perfusion imaging with no signs of ischemia. No need for further cardiac workup at this time. We will continue his beta-lexie, statin, Xarelto, and continue to monitor, evaluate, and treat as appropriate. Thank you for this consult. Thank for allowing [facility] to interact in the care of this patient. PRIYANKA MAZA APRN FOR MD JOANNE HASKINS/phill /[id number] d: 11/27/162111 t: 12/12/161700, CONSULTATION REPORT
--- NOTE | ~2016-11-25 | CON ---
PATIENT'S NAME: MARGUERITE CHAPARRO [facility] AGE: 66 Y [address] ROOM: [place] [address] LOCATION: [facility] [place] ADMIT DATE: 11/25/2016 Consultation DISCHARGE DATE: FAMILY PHYSICIAN: Luis Carlos Shipley MD ATTENDING PHYSICIAN: RUBEN CHAUDHRY DATE OF CONSULTATION: 11/27/2016 CONSULTATION NOTE CHIEF COMPLAINT/REASON FOR CONSULTATION: Nausea and vomiting with CT findings of cholelithiasis. HISTORY OF PRESENT ILLNESS: Marguerite Chaparro is a 66-year-old male, who underwent a robotic-assisted laparoscopic radical prostatectomy, bilateral pelvic lymph node dissection, umbilical hernia repair, and creation of ileal conduit urinary diversion with bilateral ureteral reimplants on 10/30/[address] Franco and Dr. Crane. The patient had a complicated postoperative course with severe sepsis with septic shock, unidentified organism. He also had paroxysmal atrial fibrillation with acute thyroiditis suspected from amiodarone toxicity. He also had a DVT in his left lower extremity. The patient was discharged on November 24 but returned on November 25 due to weakness. Today General Surgery was consulted due to nausea and vomiting. The patient has had a CT scan done without contrast that showed the gallbladder to have increased density layering inferiorly likely reflecting tiny gallstones or milk of calcium bile. The patient states that prior to his admission on October 30, he had been doing well at home with no nausea or vomiting. He states that he developed the nausea and vomiting shortly after surgery and persisted throughout his stay. The patient states that he can sip on a little bit of water and do okay, but if he takes a spoonful of applesauce or pudding, he will vomit approximately 30 minutes later. He denies any abdominal pain. No bloating. His bowels have been working fine. Denies any indigestion. Denies any history of peptic ulcer disease or chronic ibuprofen use. The patient does not relate that his symptoms are any worse after taking certain medications. PAST MEDICAL HISTORY: Per review of the chart. ALLERGIES: HYDROCHLOROTHIAZIDE CAUSES LOW BACK PAIN. MEDICATIONS: At home include: PATIENT'S NAME: MARGUERITE CHAPARRO [facility] AGE: 66 Y [address] ROOM: [place] [address] LOCATION: [facility] [place] ADMIT DATE: 11/25/2016 Consultation DISCHARGE DATE: FAMILY PHYSICIAN: Luis Carlos Shipley MD ATTENDING PHYSICIAN: RUBEN CHAUDHRY 1. Lipitor 40 mg p.o. q. day. 2. Colace 100 mg p.o. b.i.d. 3. Magnesium oxide 400 mg p.o. b.i.d. 4. Protonix 40 mg p.o. q. day. 5. Potassium chloride 20 mEq p.o. q. day. 6. Sodium bicarbonate 650 mg p.o. t.i.d. 7. Toprol-XL 200 mg p.o. q. day. 8. Xarelto 15 mg p.o. q. day. ILLNESSES: Include: 1. Bladder cancer. 2. Paroxysmal atrial fibrillation. 3. DVT, left lower extremity. 4. History of CVA. 5. Hypertension. 6. Sleep apnea. PAST SURGICAL HISTORY: Operations: 1. Robotic-assisted laparoscopic radical prostatectomy, bilateral pelvic lymph node dissection, umbilical hernia repair, and creation of ileal conduit urinary diversion with bilateral ureteral reimplants all on 10/30/2016. 2. Right inguinal hernia repair. 3. Cystoscopy. 4. Tonsillectomy. SOCIAL HISTORY: The patient lives on his own. He denies any alcohol use. He does not currently smoke. FAMILY HISTORY: Father with polio. Mother with no health problems. REVIEW OF SYSTEMS: The patient denies any coughs or colds. Denies any shortness of breath. Denies history of any heart problems. Again his bowels have been working okay. No blood in his stool. PHYSICAL EXAMINATION: VITAL SIGNS: Temperature is 98.9, blood pressure 116/52, pulse 94, and respirations 14. GENERAL: A 66-year-old male, who is weak, lying in bed. He is alert, pleasant, and cooperative. PATIENT'S NAME: MARGUERITE CHAPARRO [facility] AGE: 66 Y [address] ROOM: [address] [address] LOCATION: [facility] [place] ADMIT DATE: 11/25/2016 Consultation DISCHARGE DATE: FAMILY PHYSICIAN: Luis Carlos Shipley MD ATTENDING PHYSICIAN: RUBEN CHAUDHRY EYES, EARS, NOSE, AND THROAT: Grossly normal. LUNGS: Clear. HEART: Regular. ABDOMEN: Hypoactive. Abdomen is soft, has a midline incision that is healing well. He has an ileal conduit in the right lower quadrant. Abdomen is nontender to palpation. LABORATORY DATA: Laboratory work shows a white blood cell count up to 17,500, hemoglobin 10.5, hematocrit 33.6, and platelets of 412,000. Sodium 142, potassium 4.7, chloride 108, CO2 of 25, BUN 25, creatinine 1.3, and glucose 89. LFTs were within normal limits yesterday. CT scan per HPI. ASSESSMENT: 1. A 66-year-old male with status post robotic prostatectomy, lymph node dissection, and ileal conduit with complicated postoperative course. 2. Persistent nausea and vomiting. 3. CT scan findings of tiny gallstones versus "milk of calcium bile.". PLAN: I discussed with the patient that his symptoms do not seem consistent with biliary colic at this time. I discussed with him that given his complicated postoperative course from his bladder cancer, we would prefer not to operate if not clearly indicated. I discussed with him that it does not rule out the fact that in the future, we may have to re-evaluate. The patient was in understanding and agreement. I have discussed this patient with Dr. Beebe, who is currently evaluating the patient, and will give further recommendations in the chart. MINH MERRITT PA-C FOR MD OZZY SILVA/phill /[id number] d: 11/27/16 1905 t: 12/10/16 1041, CONSULTATION REPORT
--- NOTE | ~2016-11-25 | CON ---
PATIENT'S NAME: MARGUERITE YEPEZ [facility] AGE: 66 Y [address] ROOM: [place] [address] LOCATION: [facility] [place] ADMIT DATE: 11/25/2016 Consultation DISCHARGE DATE: FAMILY PHYSICIAN: Luis Carlos Shipley MD ATTENDING PHYSICIAN: RUBEN CHAUDHRY Consult for Dr. Flores. This 66-year-old gentleman is admitted on 11/25 with marked generalized weakness, was discharged one day before from [facility] with marked weakness, could not keep his food down and was diagnosed upon discharge on 11/24/2016 as follows, 1. CA bladder, status post robotic cystoprostatectomy with ileal conduit. 2. Paroxysmal atrial fibrillation. 3. Severe sepsis with septic shock with unidentified organism. 4. Acute thyroiditis secondary to amiodarone toxicity. 5. Coagulopathy. 6. Hyponatremia. 7. Increased nutritional risk secondary to deficiency in uptake. 8. DVT of left lower extremity, now stable. 9. History of CVA, hemorrhagic, conversion with minimum residual effect. 10. Hypertension, essential. At the present time, he is alert, oriented x3 with a Dobhoff tube and vitals are as follows. VITAL SIGNS: Blood pressure 133/70, temperature 98.6, pulse 96, respirations 16. He is 5 feet 11 inches and weighs 76.8 kg. His hemoglobin today was 9.4 and hematocrit 30.8. NEUROLOGY: Now able to comprehend, express without much difficulty. Speech is clear and not wet. Can swallow, but cannot keep things down. Neurologically intact. Good bowel control. MEDICATIONS: He is on the following medications. 1. Lopressor. 2. Reglan. 3. Mag-ox 400. 4. Biotene. 5. Lactose. 6. NaCl 0.9%. 7. Vancomycin. 8. Albuterol. 9. KCl. 10. Prevacid. 11. Sodium bicarbonate. 12. Docusate sodium. PATIENT'S NAME: MARGUERITE YEPEZ [facility] AGE: 66 Y [address] ROOM: [place] [address] LOCATION: [facility] [place] ADMIT DATE: 11/25/2016 Consultation DISCHARGE DATE: FAMILY PHYSICIAN: Luis Carlos Shipley MD ATTENDING PHYSICIAN: RUBEN CHAUDHRY 13. . 14. Zofran. 15. Lipitor. 16. Sodium bicarbonate. 17. Xarelto. ASSESSMENT AND PLAN: He, at the present time, with standby assistance can ambulate 100-120 feet with front-wheeled walker and standby commercial loan assistant; however, I feel this man has been doing well so far, he needs to be stabilized to be able to eat and keep things down to get stronger. He has been initiated on PT, OT already which I will continue. I will watch him closely and if he is stable he can go on outpatient with home health versus we will consider re-evaluate him for rehab admission, if he is not stable and cannot be discharged to home with a good help. Thank you for this referral. I did explain everything to him. He verbalized understanding and agreement. MD JUNE LESTER/phill /[id number] d: 12/03/16 1829 t: 12/04/16 0808, CONSULTATION REPORT
--- NOTE | ~2016-11-25 | OR ---
PATIENT'S NAME: MARGUERITE YEPEZ [facility] AGE: 66 Y [address] ROOM: [address] [address] [place] [facility] [place] AD[place] DATE: 11/25/2016 OR/Procedure Report DISCHARGE DATE: FAMILY PHYSICIAN: Luis Carlos Shipley MD ATTENDING PHYSICIAN: RUBEN CHAUDHRY SURGEON: Leticia Damon MD HUMAN RESOURCES OFFICER: DATE OF PROCEDURE: 12/04/2016 PROCEDURE PERFORMED: Esophagogastroduodenoscopy. INDICATION: Nausea and vomiting. MEDICATIONS: Please see anesthesiology record for details. CONSENT: The risks/benefits/alternatives were discussed, and the patient or his power of asp net developer expressed understanding and agreed to proceed. Informed consent was obtained and placed in the chart. Time-out was completed prior to starting the procedure. DESCRIPTION OF PROCEDURE: The patient was placed in the left lateral decubitus position. One-lead EKG monitoring was used along with intermittent blood pressure monitoring and pulse oximetry. Bite block was placed in the patient's mouth. The above medications were given and titrated to response. Once adequate sedation was completed, the endoscope was passed through the patient's mouth into the posterior oropharynx. The endoscope was then passed into the esophagus, stomach, and duodenal bulb. The duodenum was examined through the third portion. The endoscope was then withdrawn into the stomach. In the stomach, retroflexion was completed. The scope was then straightened and withdrawn from the patient. The patient tolerated the procedure well. There were no complications. SUMMARY OF FINDINGS: 1. Normal esophagus. 2. Normal stomach. 3. Normal duodenum. 4. On withdrawal, the duo-tube was withdrawn back into the esophagus. A snare was used to grasp the tube and drag it into the duodenum. However, when withdrawing the EGD scope, the tube then proceeded back into the esophagus again, and further attempts to place it into the small bowel were aborted. The duo-tube was removed. ASSESSMENT AND PLAN: Nausea and vomiting: I suspect the patient just has slow transit and needs slow tube feeds. We could also try bolus tube feeds. Recommend anti-emetics scheduled. Unfortunately, his duo-tube was removed PATIENT'S NAME: MARGUERITE YEPEZ [facility] AGE: 66 Y [address] ROOM: [id number] [place], [place] [address] LOCATION: [facility] [place] ADMIT DATE: 11/25/2016 OR/Procedure Report DISCHARGE DATE: FAMILY PHYSICIAN: Luis Carlos Shipley MD ATTENDING PHYSICIAN: RUBEN CHAUDHRY during the exam on withdrawal. Therefore, he will need a new tube placed for feeding. J MD JANN LEE/gilmal /[id number] d: 12/04/16 1337 t: 12/06/16 1358, OPERATIVE SUMMARY
--- NOTE | ~2016-11-25 | ER ---
PATIENT'S NAME: MARGUERITE YEPEZ [facility] AGE: 66 Y [address] ROOM: [address] [address] [place] [facility] [place] DATE: 11/25/2016 ER/Outpatient Report DISCHARGE DATE: FAMILY PHYSICIAN: Luis Carlos Shipley MD ATTENDING PHYSICIAN: RUBEN CHAUDHRY Time of Arrival: 1424 hours. Time of Evaluation: 1445 hours. CHIEF COMPLAINT: Weakness. HISTORY OF PRESENT ILLNESS: This is a 66-year-old male who presents to the ER with his family friend, who states that he was recently admitted to the hospital for a little over 4 weeks and was just dismissed yesterday afternoon. The patient felt like he would be able to go home and make it there by himself, but he found out that he has not been strong enough to do so. He states that he has been very weak. He states that he is unable to take care of himself at home. He had a call friend to come get him up out of the chair today. He states he was able to get to the restroom today and back to his chair, however. He does have a history of bladder cancer. He did develop severe infection while he was here in the hospital as well developed a DVT of his left lower extremity. The patient states that no new complaint has aroused since yesterday. ALLERGIES: PLEASE SEE MEDICATION LIST IN NURSE'S NOTES. MEDICATIONS: Please see medication list in nurse's notes. PAST MEDICAL HISTORY: 1. Atrial fibrillation. 2. Hemorrhagic stroke in 2012. 3. Hypertension. 4. Obstructive sleep apnea. 5. Obesity. 6. Hyperlipidemia. 7. Former smoker. 8. History of hematuria. 9. Muscle invasive urethral carcinoma. SOCIAL HISTORY: He is from [place]. He lives at home alone. PATIENT'S NAME: LUCHO, [facility] AGE: 66 Y [address] ROOM: [address] [address] [place] [facility] [place] DATE: 11/25/2016 ER/Outpatient Report DISCHARGE DATE: FAMILY PHYSICIAN: Luis Carlos Shipley MD ATTENDING PHYSICIAN: RUBEN CHAUDHRY REVIEW OF SYSTEMS: A 10-point review of system was completed and was negative with the exception of those discussed in the HPI. PHYSICAL EXAMINATION: VITAL SIGNS: Height 5 feet 11 inches stated, weight 76.9 kg taken, blood pressure is 146/69, pulse 105, respirations 16, temperature 98.8 degrees tympanically, saturations 94% on room air. [place] Coma Score is 15. GENERAL: An alert, thin male, in no acute distress. He does appear not to feel well. HEENT: Head: Normocephalic. He does have tacky mucous membranes. LUNGS: Clear to auscultation bilaterally. No wheezes or crackles. HEART: Tachycardic, irregular rhythm. ABDOMEN: Soft. He has generalized tenderness in all 4 quadrants. No guarding or rebound tenderness. EXTREMITIES: No clubbing or cyanosis. He states that his left leg is sore to palpation in his calf. LABORATORY DATA AND X-RAYS: CBC: White count is 14.8, hemoglobin 11.6, platelets 451. CMS: Glucose is 106, BUN is 26, creatinine is 1.4. IMPRESSION: 1. Failure to thrive at home. 2. History of bladder cancer. 3. History of atrial fibrillation. 4. Recent history of deep venous thrombosis of left lower extremity. ASSESSMENT AND PLAN: I discussed the patient's care with Dr. Loredo. We did start an IV and did give him a 500 mL bolus and then ran fluids at 100 mL/h. I did call Dr. Chaudhry, and he will be readmitting patient to the hospital, so they can find placement for him. The patient and the patient's family, friends understand and agree with care. KARLA MARIE PA-C FOR MD ALEXANDRA BROWNLEE/phill /[id number] d: 11/25/162102 t: 12/19/16902, OUTPATIENT REPORT
--- NOTE | ~2016-11-25 | HP ---
PATIENT'S NAME: LUCHO [facility] AGE: 66 Y [address] ROOM: [place] [address] [place]: [facility] [place] ADMIT DATE: 11/25/2016 History & Physical DISCHARGE DATE: FAMILY PHYSICIAN: Luis Carlos Shipley MD ATTENDING PHYSICIAN: RUBEN CHAUDHRY DATE OF SERVICE: CHIEF COMPLAINT: Weakness. HISTORY OF PRESENT ILLNESS: This is a 66-year-old male who was recently discharged yesterday from the service of [facility]. During which time, the patient had a complicated extended hospital stay. Please check the discharge summary which was done by Dr. Mercado for details. The patient reports that upon arrival home yesterday that he has not had any appetite and he reported that he found it difficult to get around and get things done by himself at home and so he called his PCP and who asked him to come into the ER. He denied any fever since getting home. Denied any nausea except when he drinks water. Denies vomiting. Denies any abdominal pain since he got home. Denies chest pain, cough, or diarrhea since he got home. He denies worsening leg swelling. Notes his left calf pain is still the same, has not gotten worse. REVIEW OF SYSTEMS: The 13 elements of review of systems were asked and as documented in the HPI. The others are negative. PAST MEDICAL HISTORY: Includes bladder cancer, status post robotic cystoprostatectomy with ileal conduit; paroxysmal atrial fibrillation; acute thyroiditis, probably suspected secondary to amiodarone toxicity versus euthyroid sick syndrome; moderate protein calorie malnutrition; new left lower extremity DVT; history of CVA with hemorrhagic conversion; essential hypertension; and obstructive sleep apnea. PAST SURGICAL HISTORY: Includes status post ileal conduit, right inguinal hernia repair, tonsillectomy, and cystoscopy. FAMILY HISTORY: Father with polio, mother was healthy and had no problems. SOCIAL HISTORY: Lives on his own. Former smoker. Denies use of alcohol. PATIENT'S NAME: [facility] AGE: 66 Y [address] ROOM: [place] [address] LOC[place]: [facility] [place] ADMIT DATE: 11/25/2016 History & Physical DISCHARGE DATE: FAMILY PHYSICIAN: Luis Carlos Shipley MD ATTENDING PHYSICIAN: RUBEN CHAUDHRY PHYSICAL EXAMINATION: VITAL SIGNS: Temperature 98.3, pulse 98, respiratory rate 20, blood pressure 144/85, and oxygen saturation 94% on room air. GENERAL: A male who is alert, awake, oriented x3, not in any form of respiratory distress or painful distress. NEUROLOGIC: Cranial nerves 2 through 12 are intact bilaterally. Sensory is intact bilaterally. Power in both upper extremities is at least of 4. Power in both lower extremities of 3. HEENT: Normocephalic, atraumatic. Pupils equal and reactive to light bilaterally. Pharynx is normal. Mucosa is moist. Ears: No obvious ear discharge or drainage. NECK: Supple. No area of tenderness. No lymphadenopathy. CARDIOVASCULAR SYSTEM: Normal S1, S2. Regular rate and rhythm. CHEST: Clear to auscultation bilaterally. ABDOMEN: Soft, nondistended. No area of tenderness. No palpable organomegaly. His ileal conduit is in place. : Urine bag contains matthew-colored urine. EXTREMITIES: There is no joint swelling or erythema or tenderness. SKIN: No rash or skin breakdown. LABORATORY DATA: No labs currently. ASSESSMENT AND PLAN: This is a 66-year-old male who was discharged yesterday, he presented because of inability to take care of himself at home. 1. Deconditioning. We will continue with PT and OT, and we will get Care Management consult tomorrow for placement, probably to a swing bed or a usp, present on admission. 2. Paroxysmal atrial fibrillation, rate controlled. We will continue the patient on his long-term anticoagulation, Xarelto. 3. Acute thyroiditis. We will recheck his TSH and see what level we are at right now. 4. Acute left lower extremity deep venous thrombosis, present on admission. We will continue him on Xarelto. 5. Essential hypertension, is stable. Continue the patient on his medication. 6. Bladder cancer, status post cystoprostatectomy and ileal conduit, stable. 7. History of cerebrovascular accident with minimal residual defects. The line of management was explained to the patient who did not have any questions at this time. PATIENT'S NAME: MARGUERITE YEPEZ [facility] AGE: 66 Y [address] ROOM: [place] [address] LOCATION: [facility] [place] ADMIT DATE: 11/25/2016 History & Physical DISCHARGE DATE: FAMILY PHYSICIAN: Luis Carlos Shipley MD ATTENDING PHYSICIAN: RUBEN CHAUDHRY RUBEN CHAUDHRY MD ODO/modl /[id number] D: [id number] T: [id number] HISTORY & PHYSICAL
--- NOTE | ~2016-11-25 | CON ---
PATIENT'S NAME: MARGUERITE YEPEZ [facility] AGE: 66 Y [address] ROOM: [address] [address] LOCATION: [facility] [place] ADMIT DATE: 11/25/2016 Consultation DISCHARGE DATE: FAMILY PHYSICIAN: Luis Carlos Shipley MD ATTENDING PHYSICIAN: RUBEN CHAUDHRY DATE OF CONSULTATION: 11/29/2016 REFERRING PHYSICIAN: Ruben Chaudhry MD REASON FOR CONSULTATION: Nausea and vomiting. HISTORY OF PRESENT ILLNESS: This is a 66-year-old male who underwent a robotic-assisted laparoscopic radical prostatectomy, bilateral pelvic lymph node dissection, umbilical hernia repair, and creation of ileal conduit urinary diversion with bilateral ureteral reimplants on 10/30/[address] Franco and Dr. Crane. The patient had a complicated postoperative course with severe sepsis and septic shock with unidentified organism. He also developed paroxysmal atrial fibrillation with acute thyroiditis, suspected for amiodarone toxicity. He also had DVT in his left lower extremity. The patient was discharged on November 24 and returned on November 25 secondary to significant weakness. The patient underwent a CT scan showing gallbladder increased density layering inferiorly, likely reflecting tiny gallstones or milk of calcium bile. We were asked to see in consultation as the patient has experienced severe nausea and vomiting since his admission on October 30, 2016, and at home. This persisted throughout his dismissal as well as his recent hospitalization. The patient states he can take a sip of water and does okay, though if he take a spoonful of applesauce or pudding, he will vomit approximately 30 minutes later. He denies any associated abdominal pain or abdominal bloating. They currently have placed an NG tube for tube feedings for severe malnutrition; have to see regarding if the patient can tolerate this at this point. The patient denies any history of upper endoscopy. He has no history of peptic ulcer disease or chronic NSAID use. The patient currently denies any chest pain, chest pressure, shortness of breath, fever, chills, night sweats, or weight loss. PAST MEDICAL HISTORY: Bladder cancer, status post robotic cystoprostatectomy with ileal conduit; paroxysmal atrial fibrillation; acute thyroiditis, suspected secondary to amiodarone toxicity; moderate protein-calorie malnutrition; new left lower extremity DVT; history of CVA with hemorrhagic conversion; essential hypertension; and obstructive sleep apnea. PAST SURGICAL HISTORY: Status post ileal conduit, right inguinal hernia repair, tonsillectomy, and PATIENT'S NAME: MARGUERITE YEPEZ [facility] AGE: 66 Y [address] ROOM: [id number] [place], [place] [address] LOCATION: [facility] [place] ADMIT DATE: 11/25/2016 Consultation DISCHARGE DATE: FAMILY PHYSICIAN: Luis Carlos Shipley MD ATTENDING PHYSICIAN: RUBEN CHAUDHRY cystoscopy. He denies any history of upper endoscopy. SOCIAL HISTORY: The patient lives on his own. He is a former tobacco user. He denies any use of alcohol or illicit drug use. FAMILY HISTORY: The patient's father had polio. The patient's mother was healthy with no problems. ALLERGIES: HYDROCHLOROTHIAZIDE CAUSES LOW BACK PAIN. CURRENT MEDICATIONS: Please refer to the medication administration record. REVIEW OF SYSTEMS: A 10-point review of systems was completed. All were negative except for those identified in the History of Present Illness. PHYSICAL EXAMINATION: GENERAL: A pleasant, 66-year-old male, lying in bed, who appears to be in no acute distress. VITAL SIGNS: Temperature 98.6, pulse is 63, respirations are 16, blood pressure 133/54, and oxygen saturation is 93% on room air. SKIN: Rarden, warm, and dry. No jaundice. HEENT: Head is normocephalic and atraumatic. Pupils are equal, round, and reactive to light. Sclerae are clear, nonicteric. Oral mucosa is pink and moist. No thyromegaly. NECK: Soft and supple. CARDIOVASCULAR: Regular. Normal S1 and S2. RESPIRATORY: Respirations even and unlabored. Lungs clear to auscultation. ABDOMEN: Soft, round, nontender, and nondistended. Bowel sounds positive x4 quadrants. MUSCULOSKELETAL: No muscle weakness or atrophy. EXTREMITIES: No clubbing or cyanosis. 1+ edema noted to bilateral lower extremities. NEUROLOGICAL: Grossly nonfocal. LABORATORY AND DIAGNOSTIC DATA: White blood cell count of 17.2, hemoglobin of 9.2, hematocrit of 29.2, and platelets of 352. Chemistry panel includes a glucose of 113, BUN of 24, creatinine of 1.2, sodium 139, potassium of 4.6, chloride of 106, and CO2 of 25. Albumin 2.0, AST 27, ALT of 18, alkaline phosphatase of 86, and total bilirubin 0.4. Abdominal ultrasound completed on 11/28/2016 showed Dobbhoff PATIENT'S NAME: MARGUERITE YEPEZ [facility] AGE: 66 Y [address] ROOM: [address] [address] LOCATION: [facility] [place] ADMIT DATE: 11/25/2016 Consultation DISCHARGE DATE: FAMILY PHYSICIAN: Luis Carlos Shipley MD ATTENDING PHYSICIAN: RUBEN CHAUDHRY was in the fundus of the stomach as catheter should be advanced, though essentially negative. A CT of abdomen and pelvis completed on 11/26/2016 showed post cystectomy with satisfactory appearing ileal loop diversion. 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 Cholelithiasis or milk of calcium bile. No findings to explain vomiting. ASSESSMENT AND PLAN: Again, this is a pleasant, 66-year-old male who recently had surgery secondary to bladder cancer with a complicated postoperative course. The patient has been experiencing significant nausea and vomiting to specific applesauce and puddings. At this time, we do recommend continuing with tube feedings via Dobbhoff. If the patient is unable to tolerate this versus high residuals, an upper endoscopy may be warranted at that time. We will continue to watch this patient for further recommendations over the patient's hospitalization. Thank you for this consult. ISMAEL OVALLES MD MMF/phill /[id number] d: 11/30/16 1228 t: 01/11/17 0844, CONSULTATION REPORT
[~2016-11-25 14:24] MED LIST changes: +COLACE100 MG PO; +K-TAB ER20 MEQ PO; +MAG-OX-400(241400 MG PO; +PROTONIX40 MG PO; +SODIUM BICARBO650 MG PO; +TOPROL XL100 MG PO; +XARELTO15 MG PO
[2016-11-25 15:37] LABS: BASOPHIL # 0.1 K/uL (0.0-0.2); BASOPHIL % 0.3 %; EOSINOPHIL # 0.3 K/uL (0.0-0.5); EOSINOPHIL % 1.9 %; HEMATOCRIT 36.5 % (37.0-53.0); HEMOGLOBIN 11.6 g/dL (11.0-16.0); IMMATURE GRANULOCYTE # 0.3 K/uL (0.0-0.3); IMMATURE GRANULOCYTE % 1.9 %; LYMPHOCYTE # 1.7 K/uL (0.8-4.0); LYMPHOCYTE % 11.3 %; MCH 30.8 pg (27.0-34.0); MCHC 31.8 gm/dL (32.0-36.5); MONOCYTE # 1.1 K/uL (0.0-1.0); MONOCYTE % 7.1 %; MPV 9.4 fl (9.4-12.4); NEUTROPHIL # (ANC) 11.5 K/uL (1.4-9.0); NEUTROPHIL % 77.5 %; NRBC % 0 /100WBC (0-0.00); RBC 3.77 M/uL (3.50-5.50); WBC 14.8 K/uL (4.0-11.0)
[2016-11-25 15:38] LABS: MCV 96.8 fl (83.0-98.0); PLATELET COUNT 451 K/uL (150-450)
[2016-11-25 15:55] LABS: ALBUMIN 2.3 gm/dL (3.5-5.0); CALCIUM 8.8 mg/dL (8.5-10.5); CREATININE 1.4 mg/dL (0.6-1.3); TOTAL PROTEIN 6.7 g/dL (6.0-8.4)
[2016-11-25 15:56] LABS: TOTAL BILIRUBIN 0.5 mg/dL (0.0-1.5)
--- NOTE | 2016-11-25 17:07 | NUR ---
Patient arrived from home to the ER today for weakness, was discharged from ICU/PCU status yesterday, hasnt eaten since yesterday and is unable to care for himself at home, he was here for bladder removal, urostomy placement and hernia repair, he also had a DVT in his left leg, bilateral buttocks have abrasions that are slightly bleeding, he is weak and was using a walker at home for ambulation, he states he needs some type of rehabilitation before returning home, he has a very flate affect and is fatigued
[2016-11-25 22:36] LABS: CPK 29 IU/L (35-332)
--- NOTE | 2016-11-26 04:52 | NUR ---
Patient admitted yesterday for weakness and unable to care for himself. 1PA with walker. Cooperative with cares. Room air. VSS. AA&OX3. Hx of DVT in left lower leg - Still is tender in calf. Bilateral buttocks reddness. Previous bladder removal and has urostomy. Chronic A-fib - on tele with no calls. No pain. Refused supper or any type of food due to throwing it back up. Started IVF at 75ml/hour.
[2016-11-26 05:33] LABS: BASOPHIL # 0.1 K/uL (0.0-0.2); BASOPHIL % 0.5 %; EOSINOPHIL # 0.5 K/uL (0.0-0.5); EOSINOPHIL % 3.8 %; HEMATOCRIT 31.7 % (37.0-53.0); HEMOGLOBIN 9.7 g/dL (11.0-16.0); IMMATURE GRANULOCYTE # 0.2 K/uL (0.0-0.3); IMMATURE GRANULOCYTE % 1.8 %; LYMPHOCYTE # 1.8 K/uL (0.8-4.0); LYMPHOCYTE % 14.7 %; MCH 30.2 pg (27.0-34.0); MCHC 30.6 gm/dL (32.0-36.5); MCV 98.8 fl (83.0-98.0); MONOCYTE # 1.1 K/uL (0.0-1.0); MONOCYTE % 8.6 %; MPV 9.8 fl (9.4-12.4); NEUTROPHIL # (ANC) 8.8 K/uL (1.4-9.0); NEUTROPHIL % 70.6 %; NRBC % 0 /100WBC (0-0.00); PLATELET COUNT 382 K/uL (150-450); RBC 3.21 M/uL (3.50-5.50); RDW-CV 14.3 % (11.9-14.6); WBC 12.5 K/uL (4.0-11.0)
[2016-11-26 05:51] LABS: ALK PHOS 86 IU/L (33-138); ALT 18 IU/L (12-78); ANION GAP 16.5 (10.0-19.0); AST 27 IU/L (10-40); BLOOD UREA NITROGEN 24 mg/dL (6-24); CALCIUM 8.3 mg/dL (8.5-10.5); CHLORIDE 108 mMol/L (96-110); CO2 22 mMol/L (22-32); CREATININE 1.2 mg/dL (0.6-1.3); ESTIMATED GFR (MDRD EQUATION) > 60; MAGNESIUM 1.8 mg/dL (1.8-2.6); POTASSIUM 4.5 mMol/L (3.7-5.1); SODIUM 142 mMol/L (135-145); TOTAL BILIRUBIN 0.4 mg/dL (0.0-1.5); TOTAL PROTEIN 5.8 g/dL (6.0-8.4)
[2016-11-26 05:54] LABS: CPK 13 IU/L (35-332)
--- NOTE | 2016-11-26 12:25 | NUR ---
RECEIVED REFERRAL TO WORK ON PLACEMENT TO SNF. I SPOKE TO PATIENT REGARDING DISCHARGE PLANS AND GOALS. PATIENT FEELS THAT HE NEEDS TO GO TO SNF, GAVE HIM CHOICES OF SNF HIS FIRST CHOICE IS [facility]. I SPOKE TO NORMA WITH [facility]. SHE WOULD LIKE FOR ME TO FAX INFO TO HER SHE WILL REVIEW IT AND GET BACK TO ME.
--- NOTE | 2016-11-26 15:39 | NUR ---
Significant Event: PT AO. VSS ON RA, AFEBRILE. TELEMETRY ON, [facility] INFORMED JOSE MIGUEL ALLEN ABOUT IT THIS AM. PT HAD CT OF ABDOMEN THIS AFTERNOON. ORDERS TO GIVE ZOFRAN 1HR PRIOR TO EATING. PT HAS REFUSED TO EAT ALL DAY, DID INFORM HIM TO LET NURSE KNOW IF HE DECIDES TO EAT. PT REPORTS FEELING SOME NAUSEA, NO EMESIS. NURSE HAS OFFERED ZOFRAN MULTIPLE TIMES TODAY AND PT HAS REFUSED NEED. IVF CONTINUE TO RUN TO L WRIST @ 75ML/HR. UROSTOMY INTACT, PT WILL EMPTY INTO URINAL AND LEAVE FOR NURSE TO EMPTY AND RECORD. AMBULATES WITH 1PA. PT/OT WORKING WITH. DID SHOWER THIS AM. SORE TO BUTTOCK, ALOE VESTA APPLIED- REPOSITIONED FREQUENTLY. Follow up: REPOSITIONING, ZOFRAN BEFORE MEALS, TELEMETRY
--- NOTE | 2016-11-26 16:30 | NUR ---
RECEIVED CALL FROM LORY AT [facility] HE REPORTS THAT BILLIE FROM [facility] SENT HIM THE REFERRAL ON MARGUERITE AND HE MEET WITH MARGUERITE AND REVIEWED THE INFO, HE REPORTS THAT THEY WILL BE ABLE TO ACCEPT MARGUERITE ONCE HE IS MEDICALLY STABLE.
--- NOTE | 2016-11-27 04:28 | NUR ---
Significant Event: PATIENT IS ALERT AND ORIENTATED X4. HE IS VERY WEAK AND REQUIRES GB WALKER AND ONE PERSON ASSIST WITH AMBULATION. DIET IS REGULAR. NO COMPLAINTS OF N/V THIS SHIFT. VS WNL ON RA. TELE WITH NO CALLS THIS SHIFT. PT HAS UROSTOMY HE EMPTIES IS INTO URINAL AT BEDSIDE. IV TO L WRIST @75 ML/HR. SORE TO BUTTOCK, REMIND TO FREQUENTLY REPOSITON. ZOFRAN 1 HOUR BEFORE MEALS. Follow up: CONTINUE TO MONITOR VITALS AND OUTPUT. HAD LOOSE STOOLS X2 THIS SHIFT.
[2016-11-27 05:03] LABS: BASOPHIL # 0.1 K/uL (0.0-0.2); BASOPHIL % 0.3 %; EOSINOPHIL # 0.6 K/uL (0.0-0.5); EOSINOPHIL % 3.3 %; HEMATOCRIT 33.6 % (37.0-53.0); HEMOGLOBIN 10.5 g/dL (11.0-16.0); IMMATURE GRANULOCYTE # 0.2 K/uL (0.0-0.3); IMMATURE GRANULOCYTE % 1.4 %; LYMPHOCYTE # 1.5 K/uL (0.8-4.0); LYMPHOCYTE % 8.6 %; MCH 30.8 pg (27.0-34.0); MCHC 31.3 gm/dL (32.0-36.5); MCV 98.5 fl (83.0-98.0); MPV 9.6 fl (9.4-12.4); NEUTROPHIL % 80.4 %; NRBC % 0 /100WBC (0-0.00); PLATELET COUNT 412 K/uL (150-450); RBC 3.41 M/uL (3.50-5.50); RDW-CV 14.3 % (11.9-14.6)
[2016-11-27 05:09] LABS: WBC 17.5 K/uL (4.0-11.0)
[2016-11-27 05:19] LABS: ANION GAP 13.7 (10.0-19.0); CALCIUM 8.2 mg/dL (8.5-10.5); CREATININE 1.3 mg/dL (0.6-1.3); POTASSIUM 4.7 mMol/L (3.7-5.1)
--- NOTE | 2016-11-27 14:16 | NUR ---
Patient is alert and oriented, but lethargic. VSS on room air. Repo Q2 hours but he can repo himself too. Urostomy, self care, empties into a urinal. Will collect UA. Tele with 2 episodes of VTach, one was 7 beats and another was 14 beats. Ro Louis was made aware and cardiology consult was ordered. Has not eaten anything so far today, will need zofran 1 hour before meals. Plan is to discharge to [facility] when he is stable to go.
[2016-11-27 16:03] LABS: BILIRUBIN URINE NEGATIVE (NEGATIVE); BLOOD URINE 250 /UL (NEGATIVE); COLOR URINE RED (YELLOW); GLUCOSE URINE NEGATIVE (NEGATIVE); KETONE URINE 5 mg/dL (NEGATIVE); LEUKOCYTES URINE 500 /UL (NEGATIVE); NITRITE URINE NEGATIVE (NEGATIVE); PROTEIN URINE 30 mg/dL (NEGATIVE); TURBIDITY URINE 2+ (CLEAR); UROBILINOGEN URINE NORMAL (NORMAL)
[2016-11-27 16:11] LABS: RBC URINE PACKED FIELD #/HPF (NEGATIVE); WBC URINE 20-50 #/HPF (NEGATIVE)
[2016-11-27 16:12] LABS: BACTERIA URINE RARE (NEGATIVE)
[2016-11-28 04:34] LABS: BASOPHIL # 0.1 K/uL (0.0-0.2); BASOPHIL % 0.4 %; EOSINOPHIL # 0.5 K/uL (0.0-0.5); EOSINOPHIL % 3.9 %; HEMATOCRIT 31.5 % (37.0-53.0); HEMOGLOBIN 9.7 g/dL (11.0-16.0); IMMATURE GRANULOCYTE # 0.2 K/uL (0.0-0.3); LYMPHOCYTE # 1.9 K/uL (0.8-4.0); LYMPHOCYTE % 16.2 %; MCH 30.2 pg (27.0-34.0); MCHC 30.8 gm/dL (32.0-36.5); MCV 98.1 fl (83.0-98.0); MONOCYTE # 0.9 K/uL (0.0-1.0); MONOCYTE % 7.9 %; MPV 9.7 fl (9.4-12.4); NEUTROPHIL # (ANC) 8.1 K/uL (1.4-9.0); NEUTROPHIL % 69.6 %; NRBC % 0 /100WBC (0-0.00); PLATELET COUNT 375 K/uL (150-450); RBC 3.21 M/uL (3.50-5.50); RDW-CV 14.4 % (11.9-14.6); WBC 11.6 K/uL (4.0-11.0)
[2016-11-28 04:50] LABS: ANION GAP 13.5 (10.0-19.0); BLOOD UREA NITROGEN 25 mg/dL (6-24); CALCIUM 8.3 mg/dL (8.5-10.5); CHLORIDE 108 mMol/L (96-110); CO2 24 mMol/L (22-32); CREATININE 1.2 mg/dL (0.6-1.3); ESTIMATED GFR (MDRD EQUATION) > 60; POTASSIUM 4.5 mMol/L (3.7-5.1); SODIUM 141 mMol/L (135-145)
--- NOTE | 2016-11-28 05:40 | NUR ---
Significant Event: Patient is A&O x 3. VSS on RA. Tele on with no calls throughout the night. Urostomy with bloody urine, he does own cares. Had a stool test for C-diff, negative. Sores to bottom x 3, repo Q2H, apply aloe. IV to L) wrist, 1/2 NS at 75ml/hr. Very weak, 1A with walker and gait belt to BR. Follow up: Continue to monitor. Plan is [facility] on dismissal.
--- NOTE | 2016-11-28 11:03 | NUR ---
A - CONSULT RECEIVED FOR TF RECS. RECENT ADMIT AND DC FROM [facility]. POOR INTAKE DURING THAT STAY. C-DIFF (-). STAGE III SACRAL PU. NAUSEA - MEDS GIVEN. REFUSING MEALS. ONLY TOLERATING SIPS OF WATER. SEVERE PCM, ADULT FTT. HT: 71" WT: 175# (11/22 - LAST TAKEN WT), 10/29 196# - DOWN 21# (10.7%) x 3 WKS. BMI: 24.3 LABS: BUN/CR 25/1.2, ALB 2.0, PREALB 8, WBC 11.6. MEDS: REMERON, KCL, PROTONIX, BOWEL/NAUSEA. DIET: REG. INTAKE: REFUSED. ENSURE TID NEEDS: 1708-2788 KCAL (25-30 KCAL/KG), 80-103 G PRO (1-1.3 G/KG), 2385 ML FLUID (30 ML/KG) D - SEVERE MALNUTRITION R/T INADEQUATE NUTRIENT INTAKE FOLLOWING BLADDER SURGERY, ALTERED GI FUNCTION AEB INTAKE < 50% OF NEEDS FOR > 2 WEEKS, 10.7% WT LOSS x 3 WEEKS, NAUSEA. I - GOAL FOR INCREASED NUTRIENT INTAKE. REC JEVITY 1.5 @ 60 ML/HR W/ 40 ML/HR WATER FLUSH TO PROVIDE 2160 KCAL, 92 G PRO, 1094 ML FREE WATER. IF UNABLE TO TOLERATE JEVITY 1.5 MAY NEED TO CONSIDER VITAL 1.2 @ 70 ML/HR (2016 KCAL, 126 G PRO) OR PARENTERAL NUTRITION. M/E - WILL MONITOR POC, DIET, INTAKE F/U IN 2-4 DAYS.
--- NOTE | 2016-11-28 11:12 | NUR ---
CONSULT RECEIVED FOR RECS. REC JEVITY 1.5 @ 60 ML/HR W/ 40 ML/HR WATER FLUSH.
--- NOTE | 2016-11-28 16:24 | NUR ---
Significant Event: PT AO. VSS ON RA, AFEBRILE. IVF RUNNING TO L WRIST. PT UP WITH 1PA, WALKER. AMBULATED WITH THERAPY IN [place]. TELEMETRY ON, CALLED AROUND 1100- PT BACK IN SINUS RHYTHM. NO CALLS SINCE. REPOSITION FREQUENTLY, DOES HAVE 2 SORES TO R BUTTOCK, 1 TO LEFT BUTTOCK. ONLY 1 SCANT BM THIS SHIFT. PT STARTED ON REGLAN AC, ZOFRAN PRIOR TO MEALS DC'D. ORDERS TO START TUBE FEEDS. DOBHOFF PLACED TO L NARE, FIRST XRAY SHOWED NEEDED ADVANCED MORE- ADVANCE ABOUT 10CM MORE- AWAITING RECHECK. Follow up: START TUBE FEEDS, CONTINUE TO MONITOR
--- NOTE | 2016-11-29 04:12 | NUR ---
Significant Event: Patient alert and oriented X4. Up with 2 person assist walker and gait belt. Went to the bathroom around 0100 and had BM, then became very weak and stated he could not stand to get back to bed. Had to use 3 person assist, and wheelchair to get patient back to bed. WOuld encourage to use bedpan until patient is stronger to avoid falls. Tube feed also started this shift, and patient tolerated well until around 0230 when patient vomited up 225ml out tube feed. MD called and orders to hold TF, consult nutrition in AM and chest xray in AM. Fluids also changed to D5 at 75ml. IV to L) forearm. Vitals stable and on room air. TElemetry on, no calls. Illeoconduit to R) lower abdomen. HOB30 degrees. Dobhoff to L) nare, held right now. REposition frequently and aloe vesta to buttocks. Sores to buttocks bilaterally. C-diff negative, but still having loose stools. Follow up: Monitor weakness
[2016-11-29 05:09] LABS: BASOPHIL # 0.1 K/uL (0.0-0.2); BASOPHIL % 0.4 %; EOSINOPHIL # 0.3 K/uL (0.0-0.5); EOSINOPHIL % 1.5 %; HEMATOCRIT 29.2 % (37.0-53.0); HEMOGLOBIN 9.2 g/dL (11.0-16.0); IMMATURE GRANULOCYTE # 0.3 K/uL (0.0-0.3); IMMATURE GRANULOCYTE % 1.6 %; LYMPHOCYTE # 1.3 K/uL (0.8-4.0); LYMPHOCYTE % 7.6 %; MCH 30.5 pg (27.0-34.0); MCHC 31.5 gm/dL (32.0-36.5); MCV 96.7 fl (83.0-98.0); MONOCYTE # 1.1 K/uL (0.0-1.0); MONOCYTE % 6.2 %; MPV 9.8 fl (9.4-12.4); NEUTROPHIL # (ANC) 14.2 K/uL (1.4-9.0); NEUTROPHIL % 82.7 %; NRBC % 0 /100WBC (0-0.00); PLATELET COUNT 352 K/uL (150-450); RBC 3.02 M/uL (3.50-5.50); RDW-CV 14.4 % (11.9-14.6); WBC 17.2 K/uL (4.0-11.0)
[2016-11-29 05:26] LABS: ANION GAP 12.6 (10.0-19.0); BLOOD UREA NITROGEN 24 mg/dL (6-24); CALCIUM 8.2 mg/dL (8.5-10.5); CHLORIDE 106 mMol/L (96-110); CO2 25 mMol/L (22-32); CREATININE 1.2 mg/dL (0.6-1.3); ESTIMATED GFR (MDRD EQUATION) > 60; MAGNESIUM 1.6 mg/dL (1.8-2.6); POTASSIUM 4.6 mMol/L (3.7-5.1); SODIUM 139 mMol/L (135-145)
--- NOTE | 2016-11-29 08:21 | NUR ---
CONSULT RECEIVED D/T PT NOT TOLERATING TF. PT VOMITTED TF LAST NOC. CHEST X-RAY THIS AM TO CHECK FOR ASPIRATION. PHONED MD AND OBTAINED ORDER TO CHANGE TF TO VITAL 1.2 TO RUN AT GOAL RATE OF 70 ML/HR (2016 KCALS, 126 GM PROTEIN). IF PT DOES NOT TOLERATE VITAL 1.2, REC CENTRAL ACCESS FOR TPN AT 80 ML/HR W/ 250 ML 20% LIPIDS ON M-W-F = AVERAGE OF 2173 KCALS, 81 GM PROTEIN. WILL F/U TOMORROW.
--- NOTE | 2016-11-29 14:21 | NUR ---
RESP SCORING COMPLETE
--- NOTE | 2016-11-29 15:29 | NUR ---
Unable to make post hospitalization follow up call as patient was re-admitted to hospital the day after his discharge.
--- NOTE | 2016-11-29 18:03 | NUR ---
Significant Event: orientedx3, sleepy and withdrawn most of day but reponds to verbal stimuli. Call this am that urine culture is MRSA+ so isolation and IV vanco initiated. Dobhoff replaced by Gale Wolff RN as the prior one was plugged, tube feeding (vital) initiated around noon with no difficulties or c/o nausea/vomiting so increase to 40 ml/hr per MD order at 1600. Can increase in 4 hour increments by 20 ml to try and get to goal of 70 ml/hr. IV fluids discontinued per MD order at 1610. Perks up as the afternoon goes on. Has telemetry on, was in afib (asymptomatic) froom [id number]. Had IV MG around 0600 this AM. Afebrile today, refuses to get out of bed, refuses oral intake. Follow up: tube feeding adjustments.
--- NOTE | 2016-11-30 04:12 | NUR ---
Significant Event: Patient A&O x 3. Patient was very drowsy during first assessment, has rested well throughout night. He has not been up. 3 sores to buttocks, repo Q2H and keep off back. Aloe at bedside for sores. Patient has dobhoff in L) nare. Tube feeding increased from 40ml to 60ml at 2200 and to 75ml at 0230 per orders. Now set at 75ml feeding/40ml flush every 4 hours. No complaints of N/V during night. IV to L) wrist SL. Tele on with no calls throughout the night. Ileoconduit to R) abdomen connected to dependent drain now. Isolation precaution for MRSA in urine. Follow up: Plan to D/C to [facility] when ready. Continue to monitor tube feeing and side effects.
[2016-11-30 05:21] LABS: BASOPHIL # 0.1 K/uL (0.0-0.2); BASOPHIL % 0.5 %; EOSINOPHIL # 0.2 K/uL (0.0-0.5); EOSINOPHIL % 1.9 %; HEMOGLOBIN 9.5 g/dL (11.0-16.0); IMMATURE GRANULOCYTE # 0.2 K/uL (0.0-0.3); IMMATURE GRANULOCYTE % 1.2 %; LYMPHOCYTE # 2.3 K/uL (0.8-4.0); LYMPHOCYTE % 17.9 %; MCH 30.5 pg (27.0-34.0); MCHC 31.7 gm/dL (32.0-36.5); MCV 96.5 fl (83.0-98.0); MONOCYTE # 1.1 K/uL (0.0-1.0); MONOCYTE % 8.6 %; MPV 10.2 fl (9.4-12.4); NEUTROPHIL # (ANC) 8.8 K/uL (1.4-9.0); NEUTROPHIL % 69.9 %; NRBC % 0 /100WBC (0-0.00); PLATELET COUNT 339 K/uL (150-450); RBC 3.11 M/uL (3.50-5.50); RDW-CV 14.3 % (11.9-14.6); WBC 12.6 K/uL (4.0-11.0)
[2016-11-30 05:41] LABS: ANION GAP 12.2 (10.0-19.0); BLOOD UREA NITROGEN 26 mg/dL (6-24); CALCIUM 8.2 mg/dL (8.5-10.5); CHLORIDE 106 mMol/L (96-110); CO2 25 mMol/L (22-32); CREATININE 1.2 mg/dL (0.6-1.3); ESTIMATED GFR (MDRD EQUATION) > 60; MAGNESIUM 1.7 mg/dL (1.8-2.6); POTASSIUM 4.2 mMol/L (3.7-5.1); SODIUM 139 mMol/L (135-145)
--- NOTE | 2016-11-30 14:06 | NUR ---
A - NUT F/U. TF CHANGED TO VITAL 1.2 @ 70 ML/HR YESTERDAY D/T N/V. NO EMESIS x 24 HRS. ADULT FTT. SEVERE PCM. 3 SORES TO BOTTOM. LABS: GLU 122, BUN/CR 26/1.2, ALB 2.0, MG 1.7, WBC 12.6. MEDS: LACTOSE, VANCO, KCL, PREVACID, REGLAN, REMERON, BOWEL/NAUSEA. DIET: VITAL 1.2 @ 70 ML/HR VIA DOBHOFF. NO RESIDUALS. PROVIDES 2015 KCAL, 126 G PRO. NEEDS: KCAL, 80-103 G PRO D - INADEQUATE ORAL NUTRIENT INTAKE R/T ALTERED GI FUNCTION AEB N/V W/ ORAL INTAKE, NEED FOR PEPTIDE-BASED ENTERAL NUTRITION FORMULA. I - GOAL FOR CONTINUED ENTERAL NUTRITION TOLERANCE. M/E - WILL MONITOR TF, GI FUNCTION F/U IN 2-4 DAYS.
--- NOTE | 2016-11-30 15:38 | NUR ---
Significant event: Up to BR this am and this afternoon both times blood bank laboratory technician called and notified nurse of increased heart rate and ventricular tachycardia and atrial fibrillation this am and ventricular tachycardia this afternoon. Denied any chest pain or shortness of breath, reported he was tired and wanted to return to bed. Reported by blood bank laboratory technician rates returned to normal. Encouraged to sit up in chair but refused. Is talking more this afternoon.
--- NOTE | 2016-11-30 22:05 | NUR ---
Significant Event: No calls from Tele this evening. Pt started on Vanco today, MRSA urine, in isolation.Denies need for pain meds. Follow up:
--- NOTE | 2016-12-01 03:30 | NUR ---
SIGNIFICANT EVENT: Patient very drowsy, wakes to voice and nods appropriately to yes/no questions. Tele on, no calls. Tachycardic. Other VSS on RA. Tube feeding running at 70 mL/hr to L) nare dobhoff - Vital formula. Did not get up between 2200 and 0600 but may get up to bathroom as tolerated. Ileoconduit on R) Abd draining to dependent bag. Isolation for MRSA in urine. Can crush meds and put in dobhoff. L) wrist IV and R) midline IV both SL. Cooperative with cares.
[2016-12-01 06:02] LABS: BASOPHIL # 0.1 K/uL (0.0-0.2); BASOPHIL % 0.5 %; EOSINOPHIL # 0.2 K/uL (0.0-0.5); EOSINOPHIL % 2.1 %; HEMATOCRIT 29.2 % (37.0-53.0); HEMOGLOBIN 9.2 g/dL (11.0-16.0); IMMATURE GRANULOCYTE # 0.2 K/uL (0.0-0.3); IMMATURE GRANULOCYTE % 1.7 %; LYMPHOCYTE % 20.9 %; MCH 30.4 pg (27.0-34.0); MCHC 31.5 gm/dL (32.0-36.5); MCV 96.4 fl (83.0-98.0); MPV 10.1 fl (9.4-12.4); NEUTROPHIL # (ANC) 6.2 K/uL (1.4-9.0); NEUTROPHIL % 64.8 %; NRBC % 0 /100WBC (0-0.00); PLATELET COUNT 318 K/uL (150-450); RBC 3.03 M/uL (3.50-5.50); RDW-CV 14.3 % (11.9-14.6); WBC 9.6 K/uL (4.0-11.0)
[2016-12-01 06:23] LABS: ANION GAP 10.2 (10.0-19.0); BLOOD UREA NITROGEN 29 mg/dL (6-24); CALCIUM 7.9 mg/dL (8.5-10.5); CHLORIDE 108 mMol/L (96-110); CO2 29 mMol/L (22-32); CREATININE 1.1 mg/dL (0.6-1.3); ESTIMATED GFR (MDRD EQUATION) > 60; MAGNESIUM 1.4 mg/dL (1.8-2.6); POTASSIUM 4.2 mMol/L (3.7-5.1); SODIUM 143 mMol/L (135-145)
--- NOTE | 2016-12-01 19:25 | NUR ---
Significant Event: Follow up: Dobhoff tube in use , tube feeding at 70 ml / hr. flush 40ml/4hr Plugged up tube with administration of crushed medications this am, replaced tube to a lenght of 68 ml at tip of nose. Dr Flores made a few adjustment to medications, ok to crush medications , and use liquids. Iv per order. given magnesium Iv today. telemtry in use. ambulates to toilet with standby assist. no pain.
--- NOTE | 2016-12-02 01:01 | NUR ---
SIGNIFICANT EVENT: Patient alert, oriented. Dobhoff changed 12/01 - remains at 68cm at nare. VSS on RA. Crush meds and give via dobhoff - patient states he can swallow small pill. Either route, nathan seems to be slow delivery. Leong catheter patent. TF is Vital formula - adjust to 40 mL/hr at 2030. Will adjust again at approx 0230 to 50 mL/hr. Order to adjust by 10 mL q6h until return to 70 mL/hr. Able to be up to BR 1PA, walker. Isolation for MRSA in urine. L) wrist IV and R) UA midline IV both SL. Cooperative with cares.
--- NOTE | 2016-12-02 18:59 | NUR ---
Significant Event: Follow up: Patient was able to swollow one small pill this am with small sips, followed by 15ml of liquid medication which caused patient to begin to gag and feel like vomiting. Patient was sitting up at bedside with this swallowing attempt. Held feeding for aprox 1 hour to allow stomach time to settle. Given the rest of his am medications crushed with 120 ml water in dobhoff, patient again began to gag and feel like vomiting, held feeding aprox 1 hour before starting it back up. Feeding was increased back up to 70 ml/ hr at goal. Patient admitted to feeling better in his stomach this afternoon. Up to toilet, up with therapy to walk in hallway. Patient spent the rest of the day in bed. HOB locked in place at 30 degrees at patient tries to lower bed himself. Patient slides to foot of bed. staff assist to reposition. NG tube at 68cm at end if nose. no c/o pain
--- NOTE | 2016-12-03 04:57 | NUR ---
A&O. Dobhoff left nare. Vital tube feeding infusing at 70/hr. Q4H 40 ml flushes. All meds crushed and given through tube. HOB< 30 degrees. Ilioconduit patent. Telemetry - has runs of Rea- MD rodriguez.
[2016-12-03 05:36] LABS: BASOPHIL # 0.1 K/uL (0.0-0.2); BASOPHIL % 0.9 %; EOSINOPHIL # 0.3 K/uL (0.0-0.5); EOSINOPHIL % 3.1 %; HEMATOCRIT 30.8 % (37.0-53.0); HEMOGLOBIN 9.7 g/dL (11.0-16.0); IMMATURE GRANULOCYTE # 0.1 K/uL (0.0-0.3); LYMPHOCYTE # 2.3 K/uL (0.8-4.0); LYMPHOCYTE % 24.2 %; MCH 30.5 pg (27.0-34.0); MCHC 31.5 gm/dL (32.0-36.5); MCV 96.9 fl (83.0-98.0); MONOCYTE # 1.1 K/uL (0.0-1.0); MONOCYTE % 11.7 %; NEUTROPHIL # (ANC) 5.5 K/uL (1.4-9.0); NEUTROPHIL % 59.1 %; NRBC % 0 /100WBC (0-0.00); PLATELET COUNT 339 K/uL (150-450); RBC 3.18 M/uL (3.50-5.50); RDW-CV 14.5 % (11.9-14.6); WBC 9.4 K/uL (4.0-11.0)
[2016-12-03 05:52] LABS: ALBUMIN 1.9 gm/dL (3.5-5.0); ALK PHOS 136 IU/L (33-138); ALT 39 IU/L (12-78); ANION GAP 11.3 (10.0-19.0); AST 49 IU/L (10-40); BLOOD UREA NITROGEN 39 mg/dL (6-24); CALCIUM 8.6 mg/dL (8.5-10.5); CHLORIDE 108 mMol/L (96-110); CO2 27 mMol/L (22-32); CREATININE 1.2 mg/dL (0.6-1.3); ESTIMATED GFR (MDRD EQUATION) > 60; MAGNESIUM 1.7 mg/dL (1.8-2.6); POTASSIUM 4.3 mMol/L (3.7-5.1); SODIUM 142 mMol/L (135-145); TOTAL BILIRUBIN 0.5 mg/dL (0.0-1.5); TOTAL PROTEIN 6.1 g/dL (6.0-8.4)
--- NOTE | 2016-12-03 11:24 | NUR ---
A-NUTRITION F/U DOBHOFF CHANGED ON 12/01. (+)BS; (+)BM. NO REPORT OF EMESIS. PT DID ATTEMPT TO SWALLOW SMALL ORAL PILL YESTERDAY; CAUSED HIM TO GAG AND FEEL LIKE HE WAS GOING TO VOMIT. STOMACH SETTLED AND TF RESTARTED AND AT GOAL OF 70 ML/HR. LABS: NA 142, K+ 4.3, GLU 132, BUN 39, ENVIRONMENTAL HEALTH AND SAFETY LEADER 1.2, ALB 1.9 MEDS: MAG-OX, REGLAN DIET RX: NPO; 70 ML/HR VITAL 1.2; PROVIDING 2016 KCALS AND 126 GM PROTEIN EST NUTR. NEEDS: [id number] KCALS AND 80-103 GM PROTEIN D-AT NUTRITION RISK W/INADEQUATE ORAL INTAKE R/T ALTERED GI FXN AEB RECENT N/V W/ORAL INTAKE, NEED FOR A PEPTIDE-BASED EN PRODUCT. I-CONTINUE W/CURRENT EN RX M/E-GOAL: CONTINUED TOLERANCE OF EN 1)F/U TUBE FEEDING, GI FXN, AND POC IN 2-3 DAYS 2)ASSIST NEEDED
--- NOTE | 2016-12-03 11:30 | NUR ---
SPOKE TO LORY Smith AT [facility] AND GAVE HIM UPDATE ON PATIENT. THEY WILL PROBABLY NEED TO EVALUATE PATIENT AGAIN ONCE HE IS READY FOR DISCHARGE.
--- NOTE | 2016-12-03 17:21 | NUR ---
AAOx3. Cooperative with cares. Dobhoff w/continuous feeding @70ml/hr. IVs to LFA and PA midline s/l'd. Gave IV Mg today over 2hrs; tolerated well. Also on VAnco. Had half a jello today and kept it down. Drinks water and pop, but has not tried pills again. Ileoconduit draining cloudy urine with large sediment; MRSA in urine so in Contact Isolation. On tele with several calls for Vtach; patient is asymptomatic. VSS, afebrile, on RA. Denies N/V/D and pain. No PRN meds given.
--- NOTE | 2016-12-04 00:56 | NUR ---
SIGNIFICANT EVENT: Patient very tired, opens eyes to voice - P: 90 to 103, RR 20 to 22, other VSS on RA. Tube feed ran at 70 mL/hr (Vital formula), with 40 mL flush q4H - NPO @ midnight d/t scheduled EGD this a.m. Crush meds, dissolve in tap water and put in Dobhoff to L) nare. Leong draining yellow urine with white sediment. Q2h turn when in bed to aid healing of sores. Cooperative with cares.
[2016-12-04 05:15] LABS: ANION GAP 10.5 (10.0-19.0); BLOOD UREA NITROGEN 41 mg/dL (6-24); CALCIUM 8.7 mg/dL (8.5-10.5); CHLORIDE 110 mMol/L (96-110); CO2 30 mMol/L (22-32); CREATININE 1.1 mg/dL (0.6-1.3); ESTIMATED GFR (MDRD EQUATION) > 60; MAGNESIUM 1.9 mg/dL (1.8-2.6); POTASSIUM 4.5 mMol/L (3.7-5.1)
[2016-12-04 05:17] LABS: SODIUM 146 mMol/L (135-145)
--- NOTE | 2016-12-04 19:10 | NUR ---
AAOx3. Cooperative with cares. Up w/SBA, GB, walker and steady gait. EGD today w/no abnormal findings. Dobhoff pulled downstairs. Order to replace was cancelled by Hospitalist. Diet low fat with 1/2 portion sizes. Give Reglan before meals. All meds changed to PO from Dobhoff and IV. Does still have Intermittent IV Vanco to be stopped after day 7 and IV Thiamine. Tolerated bites of salmon and broccoli for supper. Took pills whole with water. VSS, afebrile, on RA. Denies N/V. No BM this shift. PA Midline w/GBR and LW PIV both s/l'd. Ileostomy wafer changed today by WO, draining thready urine. Up in chair today x2. Ambulated in halls x2. Repo Q2hrs side to side. New midline pinpoint pressure ulcer between two other ulcers. Patient removes pillow tilt. pressure u
--- NOTE | 2016-12-05 03:57 | NUR ---
Significant Event: Patient alert and oriented X4. Walked in halls X1 this shift. Supposed to be up in chair TID and walk in halls TID. Iliuconduitto R) lower abd is connected to a sorto bag. Reposition patient every two hours, sores to buttocks X3. Patient needs reminded to reposition, or else he will not do it. Dobhoff D/C'd yesterday. EGD yesterday. Telemetry on, no calls. Parameters on calls from tele in chart. Aloe vesta to buttocks. 1person assist with walker and gait belt. Midline to L) upper arm and saline lock to L) wrist. Very tired. Afebrile. Tachy at times. Eating 1/2 portion sized meals to start. Q6hour accuchecks. Follow up: Monitor appetite
[2016-12-05 06:14] LABS: BASOPHIL # 0.1 K/uL (0.0-0.2); BASOPHIL % 0.9 %; EOSINOPHIL # 0.2 K/uL (0.0-0.5); EOSINOPHIL % 2.4 %; HEMATOCRIT 30.7 % (37.0-53.0); HEMOGLOBIN 9.6 g/dL (11.0-16.0); IMMATURE GRANULOCYTE # 0.1 K/uL (0.0-0.3); IMMATURE GRANULOCYTE % 0.9 %; LYMPHOCYTE % 21.1 %; MCH 30.9 pg (27.0-34.0); MCHC 31.3 gm/dL (32.0-36.5); MCV 98.7 fl (83.0-98.0); MONOCYTE % 10.1 %; NEUTROPHIL # (ANC) 6.1 K/uL (1.4-9.0); NEUTROPHIL % 64.6 %; NRBC % 0 /100WBC (0-0.00); PLATELET COUNT 340 K/uL (150-450); RBC 3.11 M/uL (3.50-5.50); RDW-CV 14.9 % (11.9-14.6); WBC 9.4 K/uL (4.0-11.0)
[2016-12-05 06:36] LABS: ANION GAP 13.4 (10.0-19.0); BLOOD UREA NITROGEN 41 mg/dL (6-24); CHLORIDE 111 mMol/L (96-110); CO2 28 mMol/L (22-32); CREATININE 1.2 mg/dL (0.6-1.3); ESTIMATED GFR (MDRD EQUATION) > 60; POTASSIUM 4.4 mMol/L (3.7-5.1)
[2016-12-05 06:37] LABS: SODIUM 148 mMol/L (135-145)
--- NOTE | 2016-12-05 13:30 | NUR ---
A - NUT F/U. DOMICHELLEOFF DC'D. LOW FAT DIET 1/2 PORTIONS STARTED. DECREASED APPETITE. WT DOWN FROM ADMIT. LABS: ACCUCHECK WNL-REAS, NA 148, GLU 104, BUN/CR 41/1.2. MEDS: DECADRON, KCL, PROTONIX, REGLAN, IVF, LACTASE, REMERON, NAUSEA. DIET: LOW FAT, 1/2 PORTIONS. INTAKE: BITES. NEEDS: [id number] KCAL, 80-103 G PRO D - INADEQUATE NUTRIENT INTAKE R/T DECREASED APPETITE AEB INTAKE RECORD, TF DC'D. I - GOAL FOR INCREASED ORAL INTAKE. WILL ADD ENSURE CLEAR TID (LOW FAT) TO INC NUTRIENT INTAKE. M/E - WILL MONITOR INTAKE AND WT F/U IN 2-5 DAYS.
--- NOTE | 2016-12-05 17:26 | NUR ---
Significant Event: Patient alert and oriented. Up to the bathroom with assist and patient had BM x 2 for the shift. Up in the recliner and ambulated in the hallway x 2. Denies discomfort. Ileoconduit patent and drains yellow urine with mucus. Patient states not having an appetite and takes bites of his meals. IV Vancomycin dc'd. Midline IV to his L) upper arm flushes well with no blood return. Accuchecks have been 108 and 142. Telemetry on with no calls received. Started on IV Decadron 4 mg TID. Follow up: Encourage activity.
--- NOTE | 2016-12-06 05:51 | NUR ---
Pt. AA&OX3. RA. VSS. Accuchecks [id number] with his results being 200 and 158 this shift.Ambulated in denney once. Denies pain and discomfort. Ate 50% of dinner. Does not have appetite and nothing tastes good. Ileoconduit patent and drains yellow with sediment/mucous. Midline IV to his L) upper arm - flushes well with no blood return. L) Wrist IV dc'd due to leaking. Telemetry on with no calls. Needs to be respositioned often as pressure ulcers developing on sacrum. Moisture barrier to buttocks.
--- NOTE | 2016-12-06 13:04 | NUR ---
SPOKE TO PATIENT REGARDING DISCHARGE PLANS AND GOALS, PATIENT TELLS ME THAT HE IS FEELING BETTER BUT HE STILL FEELS THAT HE NEEDS TO GO TO SNF AND WOULD LIKE TO CONT TO GO TO [facility]. I SPOKE TO MARGIE AT [facility] SHE IS FAMILAR WITH MARGUERITE THEY HAD EVALUATED HIM EARILER IN HIS STAY HERE. I GAVE MARGIE AN UPDATE ON PATIENT AND ASKED HER IF THEY NEED TO EVALUATE MARGUERITE AGAIN. MARGIE IS GOING TO SPEAK TO THE D.OTiffany HENLEY AND SHE WILL GET BACK TO ME TO WHETHER OR NOT THEY NEED TO EVALUATE MARGUERITE AGAIN.
--- NOTE | 2016-12-06 13:13 | NUR ---
RECEIVED CALL FROM MARGIE AT [facility] SHE WOULD LIKE FOR ME TO FAX INFO TO HER AND SHE WILL REVIEW IT.
--- NOTE | 2016-12-06 15:00 | NUR ---
RECEIVED CALL FROM MARGIE AT [facility] SHE REPORTS THAT THEY WILL ACCEPT PATIENT ONCE HE IS READY FOR DISCHARGE. I SPOKE TO PATIENT AND UPDATED HIM OF THIS AND HE IS IN AGREEMENT TO THE DISCHARGE PLANS. UPDATED DR. GAFFNEY.
--- NOTE | 2016-12-06 16:00 | NUR ---
DR. GAFFNEY SEEN PATIENT AND HE FEELS THAT PATIENT WILL BE READY FOR DISCHARGE TOMORROW. I SPOKE TO MARGIE AT [facility] SHE REPORTS THAT SHE WILL BE HERE AT 08:30 AND THAT THEY WILL BE HERE AT 1030 TO GET PATIENT. SPOKE TO DR. GAFFNEY AND UPDATED HIM OF THE TIME. I SPOKE TO MARGUERITE AND UPDATED HIM WELL. HE IS IN AGREEMENT TO GOING TO [facility] TOMORROW. PACKET STARTED.
--- NOTE | 2016-12-06 16:47 | NUR ---
Patient is alert and oriented. VSS, on room air. Ileal conduit had 500ml out. Regular diet, 1/2 quantity, has had a few bites. Accuchecks were DC'd. L) upper arm midline has no blood return. He is a 1 assist with the walker and gait belt. Pressure ulcer to buttocks, refuses to reposition. Tele on with one call for 6 beats of VTach, perimeters are to call with >15 beats asymptomatic, and any beats if symptomatic. Has worked well with PT/OT today. In isolation for MRSA in urine. Will go to [facility] tomorrow at 1030. Has a very specific lab order. Will give a copy of the order to Night RN.
--- NOTE | 2016-12-07 04:50 | NUR ---
Significant Event: Pressure ulcers to buttocks/sacrum. Repositioned. NPO since midnight for a specific lab this AM. On telemetry with no calls. [facility] today. Has an Ileal conduit. Denies pain. Follow up:
[2016-12-07 06:26] LABS: ANION GAP 11.5 (10.0-19.0); CALCIUM 8.4 mg/dL (8.5-10.5); CHLORIDE 110 mMol/L (96-110); CO2 27 mMol/L (22-32); CREATININE 1.2 mg/dL (0.6-1.3); ESTIMATED GFR (MDRD EQUATION) > 60; MAGNESIUM 2.2 mg/dL (1.8-2.6); POTASSIUM 4.5 mMol/L (3.7-5.1); SODIUM 144 mMol/L (135-145)
[2016-12-07 06:27] LABS: BLOOD UREA NITROGEN 54 mg/dL (6-24)
--- NOTE | 2016-12-07 10:15 | NUR ---
TRANSFERE ORDERS COMPLETED AND FAXED TO MARGIE AT [facility]. PATIENT IS READY FOR DISCHARGE TO [facility].
--- NOTE | 2016-12-07 10:36 | NUR ---
PATIENT TRANSFERRING TO [facility]. ILEOCONDUIT INTACT, CLOUDY URINE. URINE OUTPUT SINCE 0400 WAS 550 CC. CSM ADEQUATE, PATIENT HAS MODERATE STRENGTH. REPOSITONED Q2H, AREA OF PRESSURE SACRAL ULCER, ALOE VESTA APPLIED ORDERED. MRSA IN URINE. NO VTACH TODAY PER TELEMETRY. VSS. UP TO CHAIR THIS AM.
--- NOTE | 2016-12-07 12:57 | NUR ---
DISMISSED WITH TRAFFIC SIGNAL SUPERVISOR MAINTENANCE FROM [facility]. BELONGINGS SENT WITH PATIENT. TRANSFER PACKET SENT WITH TRAFFIC SIGNAL SUPERVISOR MAINTENANCE.
[2017-04-19] MEDS ORDERED: MIDODRINE HCL2.5 MG PO (09:39)
[2017-04-19] MEDS ORDERED: DAIRY AID3000 UNIT PO (09:39)
[2017-04-19] MEDS ORDERED: PROPYLTHIOURACI50 MG PO (09:41)
[2017-04-19] MEDS ORDERED: TOPROL XL100 MG PO (09:42)
[2017-04-19] MEDS ORDERED: LANOXIN (DIGI125 MCG PO (09:43)
[2017-04-19] MEDS ORDERED: DELTASONE10 MG PO (09:44)
== END 2016-12-07 11:00 | DRG 444 ==
LOC: GMED 14:24 → GMSU 15:42
PROVIDERS: Family Medicine; Internal Medicine; Nurse Practitioner Family; Physician Assistant Medical; ADMIT Hospitalist
PROC: 0DJ08ZZ Inspection of Upper Intestinal Tract, Via Natural or Artificial Opening Endoscopic (ICD-10-PCS; principal; 2016-12-04)
DX: K80.20 Calculus of gallbladder without cholecystitis without obstruction (principal); E43 Unspecified severe protein-calorie malnutrition; I47.2 Ventricular tachycardia; I48.0 Paroxysmal atrial fibrillation; E11.43 Type 2 diabetes mellitus with diabetic autonomic (poly)neuropathy; D68.9 Coagulation defect, unspecified; K31.84 Gastroparesis; I69.30 Unspecified sequelae of cerebral infarction; N39.0 Urinary tract infection, site not specified; Z79.01 Long term (current) use of anticoagulants; E06.4 Drug-induced thyroiditis; T46.2X5A Adverse effect of other antidysrhythmic drugs, initial encounter; R62.7 Adult failure to thrive; Z85.51 Personal history of malignant neoplasm of bladder; B95.62 Methicillin resistant Staphylococcus aureus infection as the cause of diseases classified elsewhere; Z86.718 Personal history of other venous thrombosis and embolism; Z87.891 Personal history of nicotine dependence
CPT/HCPCS: C1751; J0834; J1100; J1940; J2405; J3370; J3411; J3475; J7030; J7040; J7042; J7050

== ENCOUNTER → 2017-02-20 | Outpatient (CLI) | payer MEDICARE, BC ==
[~2017-02-20] MED LIST changes: +DAIRY AID3000 UNIT PO; +DELTASONE10 MG PO; +LANOXIN (DIGI125 MCG PO; +MIDODRINE HCL2.5 MG PO; +PROPYLTHIOURACI50 MG PO
== END | disposition disaster alternative care site (69) ==
LOC: GOPD 02-14 → GRAD 08:47 → GOPD 09:00
DX: C67.1 Malignant neoplasm of dome of bladder (principal); T45.511A Poisoning by anticoagulants, accidental (unintentional), initial encounter; D70.1 Agranulocytosis secondary to cancer chemotherapy; E05.90 Thyrotoxicosis, unspecified without thyrotoxic crisis or storm; Q63.1 Lobulated, fused and horseshoe kidney; I70.90 Unspecified atherosclerosis; Z90.6 Acquired absence of other parts of urinary tract
CPT/HCPCS: J2001; J7030; Q9967

== ENCOUNTER → 2017-03-07 | Outpatient (CLI) | payer MEDICARE, BC | END | disposition disaster alternative care site (69) | LOC: LGSMG 12:01 | DX: R53.1 Weakness (principal) ==

== ENCOUNTER → 2017-04-01 | Outpatient (CLI) | payer MEDICARE, BC | END | disposition disaster alternative care site (69) | LOC: GRAD 08:57 | DX: E01.0 Iodine-deficiency related diffuse (endemic) goiter (principal); E05.90 Thyrotoxicosis, unspecified without thyrotoxic crisis or storm ==

== ENCOUNTER → 2017-04-17 | Outpatient (CLI) | payer MEDICARE, BC | LOC: LNHI 08:38 | DX: I48.1 Persistent atrial fibrillation (principal) ==